=== PATIENT | female | born 1975 | race Caucasian/White ===

== ENCOUNTER 2024-01-12 11:37 | Outpatient (CLI) | payer BC, MEDICARE, SELFPAY ==
[2024-01-12 11:59] LABS: Basophils Absolute Auto 0.1 K/mm3 (0.0-0.1); Basophils Percent Auto 0.7 % (0.2-1.2); Eosinophils Absolute Auto 0.1 K/mm3 (0-0.3); Eosinophils Percent Auto 0.6 % (0-4.4); Hematocrit 49.9 % (37.0-47.0); Hemoglobin 17.3 g/dL (12.0-15.0); Immature Granulocyte Absolute 0.04 K/mm3 (0.00-0.031); Immature Granulocyte Percent A 0.3 % (0-0.5); Lymphocytes Absolute Auto 3.21 K/mm3 (0.9-3.2); Lymphocytes Percent Auto 23.6 % (18.3-44.2); Mean Corpuscular HGB Conc 34.7 g/dl (32-36); Mean Corpuscular Hemoglobin 32.4 pg (26-34); Mean Corpuscular Volume 93.4 fl (80-100); Mean Platelet Volume 10.5 fl (7.4-10.4); Monocytes Absolute Auto 0.7 K/mm3 (0.1-0.6); Monocytes Percent Auto 4.8 % (2.6-8.5); Neutrophils Absolute Auto 9.5 K/mm3 (1.3-6.7); Platelet Count Result 257 k/mm3 (150-375); Red Blood Count 5.34 M/mm3 (4.2-5.4); Red Cell Distribution Width 11.8 % (11.5-14.5); White Blood Count 13.6 K/mm3 (4.5-10.0)
[2024-01-12 12:34] LABS: CRP < 0.5 mg/dL (<1.0)
[2024-01-12 12:49] LABS: Erythrocyte Sedimentation Rate 2 mm/hr (0-20)
[2024-01-12 13:08] LABS: Iron 121 ug/dL (37-170)
[2024-01-12 13:19] LABS: Percent Iron Saturation 38 % (20-50)
== END 2024-01-12 11:38 | disposition home or self-care (01) ==
LOC: ANHLAB 11:41
PROVIDERS: Nurse Practitioner Family; Visit Provider Internal Medicine Hematology & Oncology
DX: D72.829 Elevated white blood cell count, unspecified (principal); D50.9 Iron deficiency anemia, unspecified
CPT/HCPCS: 36415; 82607; 82728; 83540; 83550; 85025; 85652; 86140; 88184

== ENCOUNTER 2024-02-03 02:06 | Day surgery (SDC) | payer BC, MEDICARE, SELFPAY ==
[2024-01-20 12:26] VITALS: BMI 24.9
[2024-02-03 09:32] VITALS: BP 126/81; RESP 16; TEMP 36.1; O2SAT 100
[2024-02-03] MEDS: LACTATED RINGERS 1,000 ML 150 ML IV CONT (09:45)
--- NOTE | 2024-02-03 10:00 | P.PNAN_ITS ---
Anes - Initial Pre Proc Eval Procedure: Operation Date: 02/03/24 11:00 Proposed Procedures p Esophagogastroduodenoscopy & Colonoscopy - Sarbjit De La Cruz MD Date/Time: 02/03/24 10:00 Surgeon: Sarbjit De La Cruz MD Pre Op Diagnosis: nausea w vomiting, diarrhea Patient Data Age: 48 Gender: F Height: 1.68 m Weight: 66.5 kg Last Vital Signs Temp 97 F L 02/03/24 09:32 Resp 16 02/03/24 09:32 BP 126/81 02/03/24 09:32 Pulse Ox 100 02/03/24 09:32 O2 Del Method Room Air 02/03/24 09:32 Allergies Allergy/AdvReac Type Severity Reaction Status Date / Time No Known Allergies Allergy Verified 02/03/24 09:30 Home Medications Medication Instructions Recorded Confirmed Type lorazepam 1 mg tablet 1 mg PO QID 01/20/24 01/20/24 History Patient hx anesthesia problems: none Family hx anesthesia problems: none Results Review: All pre-operative results and documents have been reviewed as part of the pre- operative evaluation. [facility] Social History Social History Smoking packs per day: 1 Smoking cigarettes per day: 20.0 Years smoked: 20 Smoking pack-years: 20.00 Smoking status: Current every day smoker Tobacco type: cigarettes Alcohol intake: never Substance use type: does not use Living arrangements: with family Spiritual care concerns: No Anes - Eval Final PreProcedure Day of Procedure 02/03/24 10:00 Patient weight: normal Heart: regular rate and rhythm Lungs: clear to auscultation Airway: Mallampati scale class II Neurological: alert and oriented Last oral intake: >/= 8 hours ASA classification: II Emergent: no Anesthetic plan: proceed Anesthesia type and monitoring: general GIVS and standard monitoring Results Review: All pre-operative results and documents have been reviewed as part of the pre- operative evaluation. Informed Consent: The patient's anesthetic plan and its attendant risks and benefits were discussed with the patient/family/POA. Questions were solicited and answers provided to the satisfaction of the patient/family/POA.
--- NOTE | 2024-02-03 10:43 | PM.HPGS ---
History of Present Illness History of Present Illness Consent: Risks, benefits, and alternatives have been discussed and questions answered. Patient agrees to proceed with procedure. Chief complaint: nausea w vomiting, diarrhea Narrative: Lory Bridges is a 48 year old female here for first egd and colonoscopy, h/o n/v, abdominal discomfort with loose stools, worse since COVID. Review of Systems Review of Systems: All systems reviewed & are unremarkable except as noted in HPI and below PMFSH Past Medical History Medical History (Updated 02/03/24 @ 10:45 by Sarbjit De La Cruz MD) Colon cancer screening Nausea & vomiting Social History Social History Smoking packs per day: 1 Smoking cigarettes per day: 20.0 Years smoked: 20 Smoking pack-years: 20.00 Smoking status: Current every day smoker Tobacco type: cigarettes Alcohol intake: never Substance use type: does not use Living arrangements: with family Spiritual care concerns: No Meds Home Medications and Allergies Home Medications Medication Instructions Recorded Confirmed Type lorazepam 1 mg tablet 1 mg PO QID 01/20/24 01/20/24 History Allergies Allergy/AdvReac Type Severity Reaction Status Date / Time No Known Allergies Allergy Verified 02/03/24 09:30 Vital Signs Vital Signs - 24 hr 02/03/24 09:32 Temperature 97 F L Respiratory Rate 16 Blood Pressure 126/81 Pulse Oximetry 100 Oxygen Delivery Room Air Exam Const: General: comfortable and no acute distress HENMT: Face/Nose/Sinus: Normal nares present Eyes: General: appearance normal, both eyes and all related structures Neck: Neck: no JVD Resp: Auscultation: clear to auscultation bilaterally Cardio: Rate: regular rate Rhythm: regular rhythm GI: Inspection: non-distended GI Palp: Yes Soft to palpation Skin: General skin exam: normal color Neuro: General: gait normal Speech: normal speech Extrem: General: normal to inspection Psych: Mental Status: mental status grossly normal Assessment and Plan Assessment and plan (1) Nausea & vomiting: Code(s): R11.2 - Nausea with vomiting, unspecified Status: Acute Assessment and Plan: egd with bx (2) Colon cancer screening: Code(s): Z12.11 - Encounter for screening for malignant neoplasm of colon Status: Acute Assessment and Plan: colonoscopy
--- NOTE | 2024-02-03 10:55 | SUR.OPER ---
EGD [id number]. Colon start time 1058.
[2024-02-03 11:09] VITALS: BP 117/59; PULSE 87; RESP 24; O2SAT 96
[2024-02-03 11:19] VITALS: BP 103/62; PULSE 83; RESP 23; O2SAT 97
[2024-02-03 11:29] VITALS: BP 116/67; PULSE 70; RESP 20; O2SAT 100
== END 2024-02-03 11:48 | disposition home or self-care (01) ==
PROVIDERS: PCP Nurse Practitioner Family; Referring Provider Internal Medicine Hematology & Oncology; Visit Provider Internal Medicine Gastroenterology
PROC: 0DJ08ZZ Inspection of Upper Intestinal Tract, Via Natural or Artificial Opening Endoscopic (ICD-10-PCS; CPT 43235; principal; 2024-02-03 11:00)
DX: Z12.11 Encounter for screening for malignant neoplasm of colon (principal); K64.8 Other hemorrhoids; K29.80 Duodenitis without bleeding; F17.210 Nicotine dependence, cigarettes, uncomplicated
CPT/HCPCS: 45378; 43239; 88305; J2704; J7120

== ENCOUNTER 2024-02-17 13:12 | Outpatient (CLI) | payer BC, MEDICARE, SELFPAY ==
[2024-02-17 13:23] LABS: Basophils Absolute Auto 0.1 K/mm3 (0.0-0.1); Basophils Percent Auto 0.5 % (0.2-1.2); Eosinophils Absolute Auto 0.2 K/mm3 (0-0.3); Eosinophils Percent Auto 1.2 % (0-4.4); Hematocrit 46.7 % (37.0-47.0); Hemoglobin 16.5 g/dL (12.0-15.0); Immature Granulocyte Absolute 0.07 K/mm3 (0.00-0.031); Immature Granulocyte Percent A 0.5 % (0-0.5); Lymphocytes Absolute Auto 3.78 K/mm3 (0.9-3.2); Lymphocytes Percent Auto 24.4 % (18.3-44.2); Mean Corpuscular HGB Conc 35.3 g/dl (32-36); Mean Corpuscular Hemoglobin 32.2 pg (26-34); Mean Corpuscular Volume 91.2 fl (80-100); Mean Platelet Volume 10.1 fl (7.4-10.4); Monocytes Absolute Auto 0.7 K/mm3 (0.1-0.6); Monocytes Percent Auto 4.5 % (2.6-8.5); Neutrophils Absolute Auto 10.7 K/mm3 (1.3-6.7); Neutrophils Percent Auto 68.9 % (45.5-73.1); Platelet Count Result 279 k/mm3 (150-375); Red Blood Count 5.12 M/mm3 (4.2-5.4); Red Cell Distribution Width 11.5 % (11.5-14.5); White Blood Count 15.5 K/mm3 (4.5-10.0)
[2024-02-17 15:52] LABS: Alanine Aminotransferase 20 U/L (6-35); Albumin Level 4.8 g/dL (3.5-5.1); Alkaline Phosphatase 73 U/L (38-126); Anion Gap 10 mmol/L (4-12); Aspartate Amino Transferase 23 U/L (14-36); Bilirubin,Total 0.4 mg/dL (0.2-1.3); Blood Urea Nitrogen 13 mg/dL (7-17); Calcium 9.9 mg/dL (8.4-10.2); Carbon Dioxide 26 mmol/L (22-30); Chloride 105 mmol/L (98-107); Estimated Glomerular Filt Rate > 60; Glucose 93 mg/dL (65-110); Potassium 4.1 mmol/L (3.4-5.0); Sodium 141 mmol/L (137-145)
[2024-02-21 10:58] LABS: BCR/abl P190 NOT DETECTED; BCR/abl P210 NOT DETECTED; BCR/abl Source PERIPHERAL
== END 2024-02-17 13:13 | disposition home or self-care (01) ==
LOC: ANHLAB 13:16
PROVIDERS: PCP Nurse Practitioner Family; Visit Provider Internal Medicine Hematology & Oncology
DX: D72.829 Elevated white blood cell count, unspecified (principal)
CPT/HCPCS: 36415; 80053; 85025

== ENCOUNTER 2024-05-18 13:42 | Outpatient (CLI) | payer BC, MEDICARE, SELFPAY ==
--- NOTE | ~2024-05-18 | MM_ITS ---
EXAMINATION: MM screening delfino BI w hilario HISTORY: Baseline TECHNIQUE: Craniocaudal and mediolateral oblique 3-D tomosynthesis images were obtained and synthetic 2-D images were generated. CAD analysis was submitted and interpreted. COMPARISON: None BREAST PARENCHYMAL COMPOSITION: The breasts are heterogeneously dense, which may obscure small masses . FINDINGS: 4-5 well-circumscribed asymmetries scattered throughout the right breast ranging between 2 and 7 cm from the nipple for which whole right breast ultrasound is recommended. Otherwise unremarkable parenchymal pattern without suspicious microcalcifications or architectural di stortion. IMPRESSION: 4-5 well-circumscribed asymmetries within the right breast ranging between 2 and 7 cm from the nipple for which whole right breast ultrasound is recommended. BI-RADS Category 0: Incomplete, additional imaging is needed Reviewed, dictated and finalized at location A. ER HAND IMPRESSION: 4-5 well-circumscribed asymmetries within the right breast ranging between 2 an d 7 cm from the nipple for which whole right breast ultrasound is recommended. BI-RADS Category 0: Incomplete, additional imaging is needed
== END 2024-05-18 13:43 | disposition home or self-care (01) ==
PROVIDERS: PCP Nurse Practitioner Family; Visit Provider Internal Medicine Hematology & Oncology
DX: Z12.31 Encounter for screening mammogram for malignant neoplasm of breast (principal); R92.8 Other abnormal and inconclusive findings on diagnostic imaging of breast
CPT/HCPCS: 77063; 77067

== ENCOUNTER 2024-06-05 12:46 | Outpatient (CLI) | payer BC, MEDICARE, SELFPAY ==
--- NOTE | ~2024-06-05 | MMUS_ITS ---
EXAMINATION: MM diagnostic delfino RT w hilario, US breast RT complete HISTORY: Right breast asymmetries TECHNIQUE: Additional 3-D tomosynthesis images of the right breast were performed and synthetic 2-D i mages were generated. CAD analysis was submitted and interpreted. High resolution complete right sarita st ultrasound including all four quadrants and the subareolar breast ultrasound was performed. COMPARISON: 05/18/2024 BREAST PARENCHYMAL COMPOSITION:Dense: The breasts are heterogeneously dense, which may obscure small masses. FINDINGS: MAMMOGRAPHIC FINDINGS: Spot compression views confirm several scattered low-density probable masses in the right breast. ULTRASOUND: At the 12:00 position right breast, 5 cm from the nipple, there is a 5 mm mildly irregular cyst with probable septation or lobulation. At the 12:00 position right breast near the nipple, there is an 8 x 5 x 4 mm hypoechoic wider than tall circumscribed mass. No posterior shadowing. At the 1:00 position right breast, 5 cm from nipple, there is initial parallel circumscribed hypoechoic solid mass measur ing 5 mm in maximum diameter. There is a similar-appearing 5 mm lesion at the 3:00 position right zhen ast, 2 cm from the nipple. There is a probable cluster of cysts, or possibly lymph node, at the 9:00 position right breast near the nipple measuring 8 mm in maximum diameter. IMPRESSION: Multiple subcentimeter probable benign lesion seen sonographically in the right breast, as detailed above. 6 month follow-up ultrasound recommended to reassess. BI-RADS category 3, probably benign findings. Reviewed, dictated and finalized at location . 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 6 month follow-up ultrasound recommended to reasse ss. BI-RADS category 3, probably benign findings.
== END 2024-06-05 12:47 | disposition home or self-care (01) ==
LOC: ANHIMG 12:47
PROVIDERS: PCP Nurse Practitioner Family; Visit Provider Internal Medicine Hematology & Oncology
DX: R92.8 Other abnormal and inconclusive findings on diagnostic imaging of breast (principal)
CPT/HCPCS: 76641; 77061; 77065; G0279

== ENCOUNTER 2024-06-22 10:38 | Outpatient (CLI) | payer BC, MEDICARE, SELFPAY ==
--- OUTSIDE RECORDS SUMMARY | 2024-06-22 10:45 | XMS_ITS | Patient Health Summary ---
Author Organization [facility] [employer] Address [address] [place] [address] Care Team Providers Care Director Of Consumer Affairs Name Role Phone Sharita De La Paz MD Primary Care Provider [phone] Note from [facility],non-owned Affiliates and Associated Physician Practices is amultiple site organization consisting of ambulatory clinics and hospital sitesin [place], [place], [place] and [place]. This disclosure is being madepursuant to the Care Everywhere program and may not contain all information available regarding this patient. Last updated 18.[facility] Allergies No known active allergies Medications * Be aware that medications may not be up to date on this document. Alwaysverify current medications with the patient. * clonazePAM (KLONOPIN) 0.5 MG tablet(Started 03/22/2018) Take 0.5 mg by mouth 2 times daily 2 refills left * desvenlafaxine succinate ER 24hr (PRISTIQ) 100 MG tablet Take 100 mg by mouth once daily * Galcanezumab-gnlm (EMGALITY) 120 MG/ML SOSY * hydroxychloroquine (PLAQUENIL) 200 MG tablet Take 200 mg by mouth 2 times daily * cyanocobalamin (VITAMIN B-12) 1000 MCG tablet Take 1,000 mcg by mouth once daily * meclizine (ANTIVERT) 25 MG tablet(Started 02/11/2021) Take 1 (one) tablet by mouth 2 times daily 3 refills by 02/11/2022 * iron polysaccharides (NIFEREX 150) 150 MG capsule(Started 02/12/2021) * rosuvastatin (CRESTOR) 20 MG tablet(Started 02/12/2021) rosuvastatin 20 mg tablet TAKE 1 TABLET BY MOUTH EVERY DAY * topiramate (TOPAMAX) 100 MG tablet Take 100 mg by mouth 2 times daily * gabapentin (NEURONTIN) 300 MG capsule(Started 07/06/2021) Take 1 (one) capsule by mouth 3 times daily 3 refills by 07/06/2022 Active Problems Problem Noted Date Diagnosed Date Polyarthralgia 09/21/2017 Abnormal MRI, musculoskeletal 09/21/2017 Pain in joint 03/06/2015 Low back pain 07/31/2014 Major depressive disorder, single episode 2014 Immunizations * FLU VACCINE QUAD IIV4 SPLIT 0.25 ML IM(Given 04/26/2019, 03/04/2016) * INFLUENZA VACCINE(Given 02/20/2018) Social History Tobacco Use Types Packs/Day Years Used Date Smoking Tobacco: Every Day Cigarettes Smokeless Tobacco: Never Alcohol Use Standard Drinks/Week Comments No 0 (1 standard drink = 0.6 oz pur e alcohol) PHQ-2 Answer Date Recorded PHQ2 TOTAL SCORE 0 11/03/2020 Sex and Gender Information Value Date Recorded Sex Assigned at Not on file Gender Identity Not on file Sexual Orientation Not on file Last Filed Vital Signs Vital Sign Reading Time Taken Comments Blood Pressure 121/74 07/06/2021 10:40 AM DIRECTOR MACHINE Pulse 81 07/06/2021 10:40 AM DIRECTOR MACHINE Temperature 36.4 ??C (97.6 ??F) 07/06/2021 10:[address] Respiratory Rate 18 10/27/2016 9:40 AM CDT Oxygen Saturation 99% 02/11/2021 8:31 AM CDT Inhaled Oxygen Concentration - - Weight 78.9 kg (174 lb) 07/06/2021 10:40 AM DIRECTOR MACHINE Height 167.6 cm (5' 6 ) 07/06/2021 10:40 AM DIRECTOR MACHINE Body Mass Index 28.08 07/06/2021 10:40 AM DIRECTOR MACHINE Procedures * HOMOCYSTEINE BLOOD QUANTITATIVE(Performed 02/11/2021) Performed for Memory changes * THYROID AB PANEL (TPO AB+THYROGLOB AB)(Performed 02/11/2021) Performed for Memory changes * FOLATE(Performed 02/11/2021) Performed for Memory changes * VITAMIN B12(Performed 02/11/2021) Performed for Memory changes * TSH REFLEX FREE T4(Performed 02/11/2021) Performed for Memory changes * SYPHILIS ANTIBODY CASCADING REFLEX(Performed 02/11/2021) Performed for Memory changes * URINALYSIS W/MICROSCOPIC REFLEX TO CULTURE(Performed 11/12/2020) Performed for Polyarthralgia * ERYTHROCYTE SEDIMENTATION RATE(Performed 11/12/2020) Performed for Polyarthralgia * C-REACTIVE PROTEIN(Performed 11/12/2020) Performed for Polyarthralgia * ALDOLASE(Performed 11/12/2020) Performed for Polyarthralgia * COMPREHENSIVE METABOLIC PANEL(Performed 11/12/2020) Performed for Polyarthralgia * CK BLOOD(Performed 11/12/2020) Performed for Polyarthralgia * CBC W AUTO DIFFERENTIAL(Performed 11/12/2020) Performed for Polyarthralgia * RHEUMATOID ARTHRITIS PANEL(Performed 11/12/2020) Performed for Polyarthralgia * NATACHA PANEL COMPREHENSIVE(Performed 11/12/2020) Performed for Polyarthralgia * CULTURE URINE REFLEXED I(Performed 11/12/2020) * EARLY SJOGREN'S SYNDROME PROFILE(Performed 11/22/2019) * URINALYSIS W/MICROSCOPIC REFLEX TO CULTURE(Performed 11/22/2019) Performed for Polyarthralgia, Long-term use of immunosuppressant medication * ERYTHROCYTE SEDIMENTATION RATE(Performed 11/22/2019) Performed for Polyarthralgia, Long-term use of immunosuppressant medication * C-REACTIVE PROTEIN(Performed 11/22/2019) Performed for Polyarthralgia, Long-term use of immunosuppressant medication * COMPREHENSIVE METABOLIC PANEL(Performed 11/22/2019) Performed for Polyarthralgia, Long-term use of immunosuppressant medication * CBC W AUTO DIFFERENTIAL(Performed 11/22/2019) Performed for Polyarthralgia, Long-term use of immunosuppressant medication * CULTURE URINE(Performed 11/22/2019) * CULTURE URINE REFLEXED(Performed 11/22/2019) * VITAMIN D 25-HYDROXY(Performed 01/23/2019) Performed for Polyarthralgia * URINALYSIS W/MICROSCOPIC REFLEX TO CULTURE(Performed 01/23/2019) Performed for Polyarthralgia * TSH(Performed 01/23/2019) Performed for Polyarthralgia * THYROID PEROXIDASE ANTIBODY(Performed 01/23/2019) Performed for Polyarthralgia * T4 FREE(Performed 01/23/2019) Performed for Polyarthralgia * ERYTHROCYTE SEDIMENTATION RATE(Performed 01/23/2019) Performed for Polyarthralgia * C-REACTIVE PROTEIN(Performed 01/23/2019) Performed for Polyarthralgia * CK BLOOD(Performed 01/23/2019) Performed for Polyarthralgia * COMPREHENSIVE METABOLIC PANEL(Performed 01/23/2019) Performed for Polyarthralgia * CBC W AUTO DIFFERENTIAL(Performed 01/23/2019) Performed for Polyarthralgia * ALDOLASE(Performed 01/23/2019) Performed for Polyarthralgia * RHEUMATOID ARTHRITIS PANEL(Performed 01/23/2019) Performed for Polyarthralgia * NATACHA PANEL COMPREHENSIVE(Performed 01/23/2019) Performed for Polyarthralgia * CULTURE URINE REFLEXED I(Performed 01/23/2019) * XR HAND RIGHT 2VW(Performed 01/15/2019) Performed for Polyarthralgia * XR HAND LEFT 2VW(Performed 01/15/2019) Performed for Polyarthralgia * URINALYSIS W/MICROSCOPIC REFLEX TO CULTURE(Performed 01/09/2019) Performed for Inflammatory arthritis, High risk medications (not anticoagulants) long-term use * ERYTHROCYTE SEDIMENTATION RATE(Performed 01/09/2019) Performed for Inflammatory arthritis, High risk medications (not anticoagulants) long-term use * CBC W AUTO DIFFERENTIAL(Performed 01/09/2019) Performed for Inflammatory arthritis, High risk medications (not anticoagulants) long-term use * COMPREHENSIVE METABOLIC PANEL(Performed 01/09/2019) Performed for Inflammatory arthritis, High risk medications (not anticoagulants) long-term use * C-REACTIVE PROTEIN(Performed 01/09/2019) Performed for Inflammatory arthritis, High risk medications (not anticoagulants) long-term use * CULTURE URINE REFLEXED I(Performed 01/09/2019) * URINALYSIS NO MICROSCOPIC NO CULTURE(Performed 03/03/2018) Performed for Low back pain, unspecified back pain laterality, unspecified chronicity, with sciatica presence unspecified, Polyarthralgia, Abnormal MRI, musculoskeletal, High risk medications (not anticoagulants) long-term use * ERYTHROCYTE SEDIMENTATION RATE(Performed 03/03/2018) Performed for Low back pain, unspecified back pain laterality, unspecified chronicity, with sciatica presence unspecified, Polyarthralgia, Abnormal MRI, musculoskeletal, High risk medications (not anticoagulants) long-term use * C-REACTIVE PROTEIN(Performed 03/03/2018) Performed for Low back pain, unspecified back pain laterality, unspecified chronicity, with sciatica presence unspecified, Polyarthralgia, Abnormal MRI, musculoskeletal, High risk medications (not anticoagulants) long-term use * COMPREHENSIVE METABOLIC PANEL(Performed 03/03/2018) Performed for Low back pain, unspecified back pain laterality, unspecified chronicity, with sciatica presence unspecified, Polyarthralgia, Abnormal MRI, musculoskeletal, High risk medications (not anticoagulants) long-term use * CBC W/O DIFFERENTIAL(Performed 03/03/2018) Performed for Low back pain, unspecified back pain laterality, unspecified chronicity, with sciatica presence unspecified, Polyarthralgia, Abnormal MRI, musculoskeletal, High risk medications (not anticoagulants) long-term use * URINALYSIS W/MICROSCOPIC REFLEX TO CULTURE(Performed 11/21/2017) Performed for Polyarthralgia, High risk medication use, Long-term use of immunosuppressant medication * ERYTHROCYTE SEDIMENTATION RATE(Performed 11/21/2017) Performed for Polyarthralgia, High risk medication use, Long-term use of immunosuppressant medication * C-REACTIVE PROTEIN(Performed 11/21/2017) Performed for Polyarthralgia, High risk medication use, Long-term use of immunosuppressant medication * COMPREHENSIVE METABOLIC PANEL(Performed 11/21/2017) Performed for Polyarthralgia, High risk medication use, Long-term use of immunosuppressant medication * CBC W/O DIFFERENTIAL(Performed 11/21/2017) Performed for Polyarthralgia, High risk medication use, Long-term use of immunosuppressant medication * CULTURE URINE REFLEXED I(Performed 11/21/2017) * URINALYSIS W/MICROSCOPIC REFLEX TO CULTURE(Performed 09/15/2017) * VITAMIN D 25-HYDROXY(Performed 09/15/2017) * CYCLIC CITRULLINATED PEPTIDE(CCP) AB IGG(Performed 09/15/2017) * C-REACTIVE PROTEIN(Performed 09/15/2017) * RHEUMATOID FACTOR BLOOD QUANTITATIVE(Performed 09/15/2017) * NATACHA BLOOD SCREEN W/REFLEX TITER(Performed 09/15/2017) * CBC W AUTO DIFFERENTIAL(Performed 09/15/2017) * ERYTHROCYTE SEDIMENTATION RATE(Performed 09/15/2017) * PROTEIN 14-3-3 BLOOD(Performed 09/15/2017) * COMPREHENSIVE METABOLIC PANEL(Performed 09/15/2017) * CULTURE URINE REFLEXED I(Performed 09/15/2017) * SACCHAROMYCES CEREVISIAE (ASCA) IGA AB(Performed 04/26/2016) * TISSUE TRANSGLUTAMINASE AB IGA(Performed 04/26/2016) * COMPREHENSIVE METABOLIC PANEL(Performed 04/26/2016) * VITAMIN D 25-HYDROXY(Performed 04/26/2016) * TSH HI LOW REFLEX FREE T4(Performed 04/26/2016) * CBC W AUTO DIFFERENTIAL(Performed 04/26/2016) * ERYTHROCYTE SEDIMENTATION RATE(Performed 04/26/2016) * URINALYSIS W/MICROSCOPIC REFLEX TO CULTURE(Performed 04/26/2016) * C-REACTIVE PROTEIN(Performed 04/26/2016) * RHEUMATOID FACTOR BLOOD QUANTITATIVE(Performed 04/26/2016) * SS-A/SS-B (SJOGREN'S) ANTIBODY PANEL(Performed 04/26/2016) * NATACHA BLOOD SCREEN W/REFLEX TITER(Performed 04/26/2016) * CYCLIC CITRULLINATED PEPTIDE(CCP) AB IGG(Performed 04/26/2016) * URINALYSIS W/MICROSCOPIC REFLEX TO CULTURE(Performed 01/10/2015) * ERYTHROCYTE SEDIMENTATION RATE(Performed 01/10/2015) * C-REACTIVE PROTEIN(Performed 01/10/2015) * COMPREHENSIVE METABOLIC PANEL(Performed 01/10/2015) * CBC W AUTO DIFFERENTIAL(Performed 01/10/2015) * CULTURE URINE REFLEXED(Performed 01/10/2015) * PROTEIN 14-3-3 BLOOD(Performed 06/25/2014) * TISSUE TRANSGLUTAMINASE AB IGA(Performed 06/25/2014) * RHEUMATOID FACTOR BLOOD QUANTITATIVE(Performed 06/25/2014) * SVP BUSINESS DEVELOPMENT ANTIBODY(Performed 06/25/2014) * CYCLIC CITRULLINATED PEPTIDE(CCP) AB IGG(Performed 06/25/2014) * HLA TYPING B27(Performed 06/25/2014) * SS-A/SS-B (SJOGREN'S) ANTIBODY PANEL(Performed 06/25/2014) * NATACHA BLOOD SCREEN W/REFLEX TITER(Performed 06/25/2014) * CBC W AUTO DIFFERENTIAL(Performed 06/25/2014) * COMPREHENSIVE METABOLIC PANEL(Performed 06/25/2014) * VITAMIN D 25-HYDROXY D2+D3(Performed 06/25/2014) * URINALYSIS W/MICROSCOPIC REFLEX TO CULTURE(Performed 06/25/2014) * TSH HI LOW REFLEX FREE T4(Performed 06/25/2014) * C-REACTIVE PROTEIN(Performed 06/25/2014) * ERYTHROCYTE SEDIMENTATION RATE(Performed 06/25/2014) * HEPATITIS C ANTIBODY(Performed 06/25/2014) * CULTURE URINE REFLEXED(Performed 06/25/2014) Results * SYPHILIS ANTIBODY CASCADING REFLEX (02/11/2021 10:41 AM CDT) Treponema pallidum Antibody Non-react felipe Non-react felipe 02/11/2021 12:47 PM CDT [facility] Comment: No Laboratory evidence of syphilis infection. ?? Note: ??Circulating antibodies may be low or undetectable in early infection. ??If recent exposure is suspected, re-draw sample in 2-4 weeks and repeat testing. Blood BLOOD SPECIMEN / Unknown Lab Venipuncture / Unknown 02/11/2021 10:41 AM CDT 02/11/2021 11:31 AM CDT Sri Antonio [facility] LAB - SEROLOGY O RDERABLES Performing Organization Address City/[facility]/ZIP Co de Phone Number [address] [address], [facility] [phone] * TSH REFLEX FREE T4 (02/11/2021 10:41 AM CDT) [facility] TSH 1.869 0.350 - 4.940 uIU/mL 02/11/2021 12:35 PM CDT [facility] Blood BLOOD SPECIMEN / Unknown Lab Venipuncture / Unknown 02/11/2021 10:41 AM CDT 02/11/2021 11:38 AM CDT Sri Antonio GENERAL LEDGER [facility] LAB - CHEMISTRY ORDERABLES [address] [address], [place] [phone] * THYROID AB PANEL (TPO AB+THYROGLOB AB) (02/11/2021 10:41 AM CDT) Pathologist [facility] Thyroid Peroxidase TPO Antibody <8 0 - 34 IU/mL 02/12/2021 4:10 PM CDT [facility] ([facility]) Thyroglobulin Antibody <1.0 0.0 - 0.9 IU/mL 02/12/2021 4:10 PM CDT [facility] ([facility]) Comment:Thyroglobulin Antibo dy measured by [facility] [place] [facility] Blood BLOOD SPECIMEN / Unknown Lab Venipuncture / Unknown 02/11/2021 10:41 AM CDT 02/11/2021 11:31 AM CDT Narrative [facility] ([facility]) - 02/12/2021 4:10 PM CDT Performed at: ??01 - [facility] [address] [facility], [place], [place] ??[id number] Member Certification Manager: Brian Esteban PhD, Phone: ??[phone] Sri Antonio [facility] LAB - CHEMISTRY ORDERABLES Performing Organization Address City/[facility] Co de Phone Number [facility]) [address] [place] [address] * HOMOCYSTEINE BLOOD QUANTITATIVE (02/11/2021 10:41 AM CDT) Homocysteine 6.9 4.4 - 16.2 umol/L 02/11/2021 12:18 PM CDT [facility] Blood BLOOD SPECIMEN / Unknown Lab Venipuncture / Unknown 02/11/2021 10:41 AM CDT 02/11/2021 11:35 AM CDT [facility] LAB - CHEMISTRY ORDERABLES [address] [address], [facility] [phone] * FOLATE (02/11/2021 10:41 AM CDT) Folate 8.7 7.0 - 31.4 ng/mL 02/11/2021 12:35 PM CDT [facility] Blood BLOOD SPECIMEN / Unknown Lab Venipuncture / Unknown 02/11/2021 10:41 AM CDT 02/11/2021 11:38 AM CDT Sri Antonio GENERAL LEDGER ACCOUNTANT-[facility] LAB - CHEMISTRY ORDERABLES Performing Organization Address City/[facility]/ZIP Co de Phone Number [address] [address], [place] [phone] * VITAMIN B12 (02/11/2021 10:41 AM CDT) Pathologist [facility] Vitamin B12 716 213 - 816 pg/mL 02/11/2021 12:35 PM CDT [facility] Blood BLOOD SPECIMEN / Unknown Lab Venipuncture / Unknown 02/11/2021 10:41 AM CDT 02/11/2021 11:38 AM CDT Sri Antonio GENERAL LEDGER ACCOUNTANT[facility] LAB - CHEMISTRY ORDERABLES Performing Organization Address [facility] Co de Phone Number [address] [address], [place] [phone] * CULTURE URINE REFLEXED I (11/12/2020 11:06 AM CDT) Only the most recent of5 resultswithin the time period is included. Pathologist [facility] Reflexive Urine Culture See Below [facility] Comment: NO CULTURE INDICATED Test Performed at: [facility] [address] ??[phone] AMADEO GONZALES DO,MPH 11/12/2020 11:0 6 AM CDT 11/12/2020 11:08 AM CDT Jay Patel MD LAB - MICROBIOLOGY O RDERABLES Performing Organization Address City/[facility]/ZIP Co de Phone Number [facility] [address] [place] [address] * NATACHA PANEL COMPREHENSIVE (11/12/2020 11:06 AM CDT) Only the most recent of2 resultswithin the time period is included. Pathologist [facility] NATACHA Screen NEGATIVE NEGATIVE [facility] Comment: NATACHA IFA is a first line screen for detecting the presence of up to approximately 150 autoantibodies in various autoimmune diseases. A negative NATACHA IFA result suggests an NATACHA-associated autoimmune disease is not present at this time, but is not definitive. If there is high clinical suspicion for Sjogren's syndrome, testing for anti-SS-A/Ro antibody should be considered. Anti-Debi-1 antibody should be considered for clinically suspected inflammatory myopathies. AC-0: Negative International Consensus on NATACHA Patterns (https://doi.org/10.1515/czzg-6192-5201) For additional information, please refer to http://education.DanceOn/faq/TXZ051 (This link is being provided for informational/ educational purposes only.) ?? dsDNA Antibody 1 IU/mL [facility] Comment: ? IU/mL ? Interpretation ? < or = 4 ?Negative ? 5-9 ? Indeterminate ? > or = 10 ?? Positive SCL-70 Antibody <1.0 NEG <1.0 NEG AI [facility] SM Antibody <1.0 NEG <1.0 NEG AI [facility] SM/SVP BUSINESS DEVELOPMENT Antibody <1.0 NEG <1.0 NEG AI [facility] Sjogren's Antibodies (SSA) <1.0 NEG <1.0 NEG AI [facility] Sjogren's Antibodies (SSB) <1.0 NEG <1.0 NEG AI [facility] Comment: Test Performed at: [facility] ??[phone] AMADEO GONZALES DO,MPH Blood BLOOD SPECIMEN / Unknown 11/12/2020 11:06 AM CDT 11/12/2020 11:08 AM CDT Jay Patel MD LAB - SEROLOGY ORDER JANIS [facility] [address] [address] * (ABNORMAL) URINALYSIS W/MICROSCOPIC REFLEX TO CULTURE (11/12/2020 11:06 AM CDT) Only the most recent of9 resultswithin the time period is included. Color UA YELLOW YELLOW [facility] Appearance CLEAR CLEAR [facility] Specific [place] UA 1.003 1.001 - 1.035 [facility] pH UA 6.5 5.0 - 8.0 [facility] Glucose UA NEGATIVE NEGATIVE [facility] Bilirubin UA NEGATIVE NEGATIVE [facility] Ketone UA NEGATIVE NEGATIVE [facility] Blood UA TRACE(A) NEGATIVE [facility] Protein UA NEGATIVE NEGATIVE [facility] Nitrite NEGATIVE NEGATIVE [facility] Leukocyte Esterase NEGATIVE NEGATIVE [facility] WBC UA NONE SEEN < OR = 5 /HPF [facility] RBC UA NONE SEEN < OR = 2 /HPF [facility] Epithelial Cell UA NONE SEEN < OR = 5 /HPF [facility] Transitional Epithelial Cells [facility] Renal Epithelial Cells [facility] Bacteria UA NONE SEEN NONE SEEN /HPF [facility] Calcium Oxalate Crystals [facility] Triple Phosphate Crystals [facility] Uric Acid Crystals [facility] Amorphous UA [facility] Crystals UA [facility] Hyaline Casts NONE SEEN NONE SEEN /LPF [facility] Comment: Test Performed at: [facility] [address] [place] [address] ??[phone] AMADEO GONZALES DO,MPH Granular Casts [facility] Casts UA [facility] Yeast [facility] Comments [facility] Note [facility] Comment: Test Performed at: [facility] [address] [place] [address] ??[phone] AMADEO GONZALES DO,MPH Urine URINE SPECIMEN OBTAINED BY CLEAN CATCH PROCEDURE / Unknown 11/12/2020 11:06 AM CDT 11/12/2020 11:08 AM CDT Jay Patel MD LAB - URINALYSIS ORD ERABLES [facility] [address] [place] [address] * (ABNORMAL) C-REACTIVE PROTEIN (11/12/2020 11:06 AM CDT) Only the most recent of10 resultswithin the time period is included. C-Reactive Protein 21.6(H) <8.0 mg/L [facility] Comment: Test Performed at: [facility] ??[phone] AMADEO GONZALES DO,MPH Blood BLOOD SPECIMEN / Unknown 11/12/2020 11:06 AM CDT 11/12/2020 11:08 AM CDT Jay Patel MD LAB - CHEMISTRY RACHEAL TORRES Performing Organization Address [facility] de Phone Number [facility] [address] [place] [address] * ALDOLASE (11/12/2020 11:06 AM CDT) Only the most recent of2 resultswithin the time period is included. Pathologist [facility] Aldolase 5.9 < OR = 8.1 U/L [facility] Comment: REPORT COMMENT: FASTING:YES Test Performed at: [facility] [id number] [facility] [place], [place] ??[phone] AMADEO GONZALES DO,MPH Blood BLOOD SPECIMEN / Unknown 11/12/2020 11:06 AM CDT 11/12/2020 11:08 AM CDT Jay Patel MD LAB - CHEMISTRY RACHEAL TORRES Performing Organization Address [facility] de Phone Number [facility] [phone] [place] [address] * RHEUMATOID ARTHRITIS PANEL (11/12/2020 11:06 AM CDT) Only the most recent of2 resultswithin the time period is included. Pathologist [facility] Rheumatoid Factor <14 <14 IU/mL [facility] Cyclic Citrullinated Peptide Antibody IgG <16 UNITS [facility] Comment: Reference Range Negative: ?<20 Weak Positive: ? 20-39 Moderate Positive: ?? 40-59 Strong Positive: ? >59 Interpretation [facility] Comment: These serologic results may be found in 10-20% of patients with polyarthritis that is clinically and radiologically indistinguishable from RA. Test Performed at: [facility] [id number] [facility] [place] [place] ??[phone] AMADEO GONZALES DO,MPH Blood BLOOD SPECIMEN / Unknown 11/12/2020 11:06 AM CDT 11/12/2020 11:08 AM CDT Jay Patel MD LAB - SEROLOGY SUAD JANIS Performing Organization Address [facility] de Phone Number [address] [address] * ERYTHROCYTE SEDIMENTATION RATE (11/12/2020 11:06 AM CDT) Only the most recent of10 resultswithin the time period is included. [facility] Erythrocyte Sedimentation Rate Westergren 14 < OR = 20 mm/h [facility] Comment: Test Performed at: [facility] ??[phone] CHRISTIANO RITTER MD Blood BLOOD SPECIMEN / Unknown 11/12/2020 11:06 AM CDT 11/12/2020 11:08 AM CDT Jay Patel MD LAB - HEMATOLOGY ORD ERABLES [address] [address] * CBC WITH DIFFERENTIAL (11/12/2020 11:06 AM CDT) Only the most recent of8 resultswithin the time period is included. [facility] White Blood Cell Count 10.6 3.8 - 10.8 Thousand/u L [facility] RBC 4.71 3.80 - 5.10 Million/uL [facility] Hemoglobin 15.3 11.7 - 15.5 g/dL [facility] Hematocrit 44.0 35.0 - 45.0 % [facility] MCV 93.4 80.0 - 100.0 fL [facility] MCH 32.5 27.0 - 33.0 pg [facility] MCHC 34.8 32.0 - 36.0 g/dL [facility] RDW 12.0 11.0 - 15.0 % [facility] Platelet Count 291 140 - 400 Thousand/u L [facility] MPV 10.1 7.5 - 12.5 fL [facility] Neutrophil Absolute 6381 1500 - 7800 cells/uL [facility] Lymphocytes Absolute 3074 850 - 3900 cells/uL [facility] Absolute Monocytes 700 200 - 950 cells/uL [facility] Eosinophils Absolute 371 15 - 500 cells/uL [facility] Basophils Absolute 74 0 - 200 cells/uL [facility] Granulocytes % 60.2 % [facility] Lymphocytes % 29.0 % [facility] Monocytes % 6.6 % [facility] Eosinophils % 3.5 % [facility] Basophils % 0.7 % [facility] Comment: Test Performed at: [facility] ??[phone] CHRISTIANO RITTER MD Blood BLOOD SPECIMEN / Unknown 11/12/2020 11:06 AM CDT 11/12/2020 11:08 AM CDT Jay Patel MD LAB - HEMATOLOGY SHEYLA TEIXEIRA [facility] [address] [place] [address] * (ABNORMAL) COMPREHENSIVE METABOLIC PANEL (11/12/2020 11:06 AM CDT) Only the most recent of10 resultswithin the time period is included. Pathologist [facility] Glucose 78 65 - 99 mg/dL [facility] Comment: ? Fasting reference interval BUN 14 7 - 25 mg/dL [facility] Creatinine 0.72 0.50 - 1.10 mg/dL [facility] eGFR by MDRD 100 > OR = 60 mL/min/1. 73m2 [facility] eGFR by MDRD 116 > OR = 60 mL/min/1. 73m2 [facility] BUN/Creatinine Ratio NOT APPLICABLE 6 - 22 (calc) [facility] Sodium 138 135 - 146 mmol/L [facility] Potassium 4.6 3.5 - 5.3 mmol/L [facility] Chloride 105 98 - 110 mmol/L [facility] CO2 27 20 - 32 mmol/L [facility] Calcium 10.1 8.6 - 10.2 mg/dL [facility] Protein Total 6.8 6.1 - 8.1 g/dL [facility] Albumin 4.3 3.6 - 5.1 g/dL [facility] Globulin Total 2.5 1.9 - 3.7 g/dL (calc) [facility] Albumin/Globuli n Ratio 1.7 1.0 - 2.5 (calc) [facility] Bilirubin Total 0.3 0.2 - 1.2 mg/dL [facility] Alkaline Phosphatase 79 31 - 125 U/L [facility] AST 22 10 - 35 U/L [facility] ALT 41(H) 6 - 29 U/L [facility] Comment: Test Performed at: [facility] [address] [place] [address] ??[phone] AMADEO GONZALES DO,MPH Blood BLOOD SPECIMEN / Unknown 11/12/2020 11:06 AM CDT 11/12/2020 11:08 AM CDT Jay Patel MD LAB - CHEMISTRY RACHEAL TORRES Performing Organization Address [facility] Co de Phone Number [facility] [address] [place] [address] * CK BLOOD (11/12/2020 11:06 AM CDT) Only the most recent of2 resultswithin the time period is included. CK 36 29 - 143 U/L [facility] Comment: Test Performed at: [facility] [address] [facility] [place] ??[address] AMADEO GONZALES DO,MPH Blood BLOOD SPECIMEN / Unknown 11/12/2020 11:06 AM CDT 11/12/2020 11:08 AM CDT Jay Patel MD LAB - CHEMISTRY RACHEAL TORRES Performing Organization Address [facility] Co de Phone Number [facility] [address] [place] [address] * EARLY SJOGREN'S SYNDROME PROFILE (11/22/2019 1:56 PM CDT) Pathologist [facility] Salivary Protein 1 Antibody IgG 5.2 EU/ml [facility] Comment: Reference Range: Negative: <20 EU/ml Borderline: 20-25 EU/ml Positive: >25 EU/ml Salivary Protein 1 Antibody IgA 9.5 EU/ml [facility] Comment: Reference Range: Negative: <20 EU/ml Borderline: 20-25 EU/ml Positive: >25 EU/ml Salivary Protein 1 Antibody IgM 11.8 EU/ml [facility] Comment: Reference Range: Negative: <20 EU/ml Borderline: 20-25 EU/ml Positive: >25 EU/ml Carbonic Anhydrase Antibody IgG 5.1 EU/ml [facility] Comment: Reference Range: Negative: <20 EU/ml Borderline: 20-25 EU/ml Positive: >25 EU/ml Carbonic Anhydrase Antibody IgA 5.1 EU/ml [facility] Comment: Reference Range: Negative: <20 EU/ml Borderline: 20-25 EU/ml Positive: >25 EU/ml Carbonic Anhydrase Antibody IgM 17.9 EU/ml [facility] Comment: Reference Range: Negative: <20 EU/ml Borderline: 20-25 EU/ml Positive: >25 EU/ml Parotid Specific Protein Antibody IgG 7.4 EU/ml [facility] Comment: Reference Range: Negative: <20 EU/ml Borderline: 20-25 EU/ml Positive: >25 EU/ml Parotid Specific Protein Antibody IgA 16.8 EU/ml [facility] Comment: Reference Range: Negative: <20 EU/ml Borderline: 20-25 EU/ml Positive: >25 EU/ml Parotid Specific Protein Antibody IgM 6.9 EU/ml [facility] Comment: Reference Range: Negative: <20 EU/ml Borderline: 20-25 EU/ml Positive: >25 EU/ml Comments See Below [facility] Comment: The novel antibodies salivary gland protein 1 (SP-1), carbonic anhydrase 6 (CA ) and parotid secretory protein (PSP) have shown to be present in animal models for Sjogren's syndrome (SS) and patients with the disease. The antibodies SP-1, CA and PSP occurred earlier in the course of the disease than antibodies to Ro or La. These antibodies were found in 45% of patients meeting the criteria for SS who lacked antibodies to Ro or La. Furthermore, in patients with idiopathic xerostomia and xerophthalmia for less than 2 years, 76% had antibodies to SP-1 and/or CA while only 31% had antibodies to Ro or La. Antibodies to SP-1, CA and PSP may be useful markers for identifying patients with SS at early stages of the disease or those that lack antibodies to either Ro or La. The presence of the antibodies to SP-1, CA and PSP should be correlated with clinical (dry mouth, dry eyes), serological (Ro, La, NATACHA, RF) and histological (positive lymphocytic focus scores) findings in establishing a definitive diagnosis for SS. Faviola Nunez et al. (2010). A role of lymphotxin in primary sjogren's syndrome. J Immunol; 185: 6725-1372. Faviola Nunez et al. (2012). Novel autoantibodies in Sjogren's syndrome. Clinical Immunology; 145, 251-255. *This test has been developed and performance parameters have been validated by [employer] This test ?? has not been approved by the U.S. Food and Drug Administration (FDA); however, US FDA approval is not required for clinical use. It is not intended that clinical diagnosis and patient management decisions be made using these results alone. This test has been validated using serum samples. The media relations associate has not determined the efficacy of this test when performed on CSF, plasma, joint or pleural fluid specimens. The performance characteristics of this test were determined by [employer] Test Performed at: [facility] [address] [place], [place] ??[address] HARMONY JARA,PHD 11/22/2019 1:56 PM CDT 11/22/2019 1:57 PM CDT Jay Patel MD LAB - SEROLOGY ORDER JANIS Performing Organization Address [facility] de Phone Number [facility] [address] [place] [address] * CULTURE URINE REFLEXED (11/22/2019 1:56 PM CDT) Only the most recent of3 resultswithin the time period is included. Reflexive Urine Culture CULTURE INDICATED - RESULTS TO FOLLOW [facility] Comment: Test Performed at: [facility] [address] [place], [place] ??[address] AMADEO GONZALES DO,MPH 11/22/2019 1:56 PM CDT 11/22/2019 1:57 PM CDT Jay Patel MD LAB - MICROBIOLOGY O RDERABLES Performing Organization Address [facility] de Phone Number [facility] [address] [place] [address] * (ABNORMAL) CULTURE URINE (11/22/2019 1:56 PM CDT) Culture (A) [facility] Comment: ??CULTURE, URINE, ROUTINE ?Micro Number: ?[id number] ??Test Status: ? Final ??Specimen Source: ?? URINE ??Specimen Quality: ??Adequate ??Result: ?10,000-50,000 CFU/mL of Group B Streptococcus isolated ? Beta-hemolytic Streptococci are predictably ? susceptible to penicillin and other beta-lactams. ? Susceptibility testing not routinely performed. ??Comment: ? Erythromycin and clindamycin are not recommended ? for treatment of urinary tract infections, ? but clindamycin may be useful for treatment of ? rectovaginal colonization or infection. REPORT COMMENT: FASTING:NO Test Performed at: [facility] [address] ??[phone] AMADEO GONZALES DO,MPH 11/22/2019 1:56 PM CDT 11/22/2019 1:57 PM CDT Jay Patel MD LAB - MICROBIOLOGY O JANIA Performing Organization Address [facility] de Phone Number [facility] [address] [place] [address] * THYROID PEROXIDASE ANTIBODY (01/23/2019 9:45 AM CDT) Pathologist [facility] Thyroid Peroxidase TPO Antibody 1 <9 IU/mL [facility] Comment: Test Performed at: [facility] [address] ??[phone] AMADEO GONZALES DO,MPH Blood BLOOD SPECIMEN / Unknown 01/23/2019 9:45 AM CDT 01/23/2019 9:47 AM CDT Jay Patel MD LAB - CHEMISTRY RACHEAL TORRES Performing Organization Address [facility] de Phone Number [facility] [id number] [place] [address] * VITAMIN D 25-HYDROXY (01/23/2019 9:45 AM CDT) Only the most recent of3 resultswithin the time period is included. Vitamin D, 25 Hydroxy 40 30 - 100 ng/mL [facility] Comment: Vitamin D Status ? 25-OH Vitamin D: Deficiency: ?<20 ng/mL Insufficiency: ? 20 - 29 ng/mL Optimal: ? > or = 30 ng/mL For 25-OH Vitamin D testing on patients on D2-supplementation and patients for whom quantitation of D2 and D3 fractions is required, the QuestAssureD(TM) 25-OH VIT D, (D2,D3), LC/MS/MS is recommended: order code 45263 (patients >2yrs). For more information on this test, go to: http://education.Wave[employer]/faq/UMG233 (This link is being provided for informational/educational purposes only.) Test Performed at: [facility] [address] [place], [place] ??[address] AMADEO GONZALES DO,MPH Blood BLOOD SPECIMEN / Unknown 01/23/2019 9:45 AM CDT 01/23/2019 9:47 AM CDT Jay Patel MD LAB - CHEMISTRY RACHEAL TORRES [facility] [address] [place] [address] * TSH (01/23/2019 9:45 AM CDT) [facility] TSH 1.72 mIU/L ANNIE Comment: ?Reference Range ?> or = 20 Years ??0.40-4.50 ? Ranges ?First trimester ?0.26-2.66 ?Second trimester ?? 0.55-2.73 ?Third trimester ?0.43-2.91 Test Performed at: [facility] [address] [place], [place] ??[address] AMADEO GONZALES DO,MPH Blood BLOOD SPECIMEN / Unknown 01/23/2019 9:45 AM CDT 01/23/2019 9:47 AM CDT Jay Patel MD LAB - CHEMISTRY RACHEAL DAINADANIELLE Performing Organization Address City/[facility]/ZIP Co de Phone Number [facility] [address] [place] [address] * T4 FREE (01/23/2019 9:45 AM CDT) T4 Free 1.2 0.8 - 1.8 ng/dL [facility] Comment: Test Performed at: [facility] [address] ??[address] AMADEO GONZALES DO,MPH Blood BLOOD SPECIMEN / Unknown 01/23/2019 9:45 AM CDT 01/23/2019 9:47 AM CDT Jay Patel MD LAB - CHEMISTRY RACHEAL TORRES Performing Organization Address [facility] Co de Phone Number [facility] [address] [place] [address] * XR HAND RIGHT 2VW (01/15/2019 4:15 PM CDT) Anatomical Region Laterality Modality Wrist / Hand Radiographic Susana ging 01/16/2019 7:14 AM CDT Impressions 01/16/2019 7:35 AM CDT IMPRESSION: No significant arthritis. Dictated by Juan Saeed MD (bank president). I, Dr. HAMLET ZAYAS MD have personally reviewed and interpreted this examination/study. This report was electronically signed by HAMLET ZAYAS MD ??on 01/16/2019 7:35 AM . Narrative 01/16/2019 7:35 AM CDT EXAMINATION: 1. Right hand radiograph, 2 views 2. Left hand radiograph, 2 views HISTORY: Arthralgias FINDINGS: No prior study is available for comparison at the time of this dictation. Right hand: The osseous structures are intact and well aligned without acute fracture or dislocation. The joint spaces are preserved. There is a subcentimeter calcification adjacent to the ulnar styloid. Density and texture are normal. No soft tissue swelling is present. Left hand: The osseous structures are intact and well aligned without acute fracture or dislocation. The joint spaces are preserved. Bone density and texture are normal. No soft tissue swelling is present. Procedure Note Hamlet Zayas MD - 01/16/2019 EXAMINATION: 1. Right hand radiograph, 2 views 2. Left hand radiograph, 2 views HISTORY: Arthralgias FINDINGS: No prior study is available for comparison at the time of this dictation. Right hand: The osseous structures are intact and well aligned without acute fracture or dislocation. The joint spaces are preserved. There natali subcentimeter calcification adjacent to the ulnar styloid. Density and texture are normal. No soft tissue swelling is present. Left hand: The osseous structures are intact and well aligned without acute fracture or dislocation. The joint spaces are preserved. Bone density and texture are normal. No soft tissue swelling is present. IMPRESSION: No significant arthritis. Dictated by Juan Saeed MD (bank president). Dr. HAMLET Hunter MD have personally reviewed and interpreted this examination/study. This report was electronically signed by HAMLET ZAYAS MD on01/16/2019 7:35 AM . Jay Patel MD DIAGNOSTIC IMAGING O RDERABLES * XR HAND LEFT 2VW (01/15/2019 4:15 PM CDT) Anatomical Region Laterality Modality Wrist / Hand Radiographic Susana ging 01/16/2019 7:14 AM CDT Impressions 01/16/2019 7:35 AM CDT IMPRESSION: No significant arthritis. Dictated by Juan Saeed MD (bank president). Dr. HAMLET Hunter MD have personally reviewed and interpreted this examination/study. This report was electronically signed by HAMLET ZAYAS MD ??on 01/16/2019 7:35 AM . Narrative 01/16/2019 7:35 AM CDT EXAMINATION: 1. Right hand radiograph, 2 views 2. Left hand radiograph, 2 views HISTORY: Arthralgias FINDINGS: No prior study is available for comparison at the time of this dictation. Right hand: The osseous structures are intact and well aligned without acute fracture or dislocation. The joint spaces are preserved. There is a subcentimeter calcification adjacent to the ulnar styloid. Density and texture are normal. No soft tissue swelling is present. Left hand: The osseous structures are intact and well aligned without acute fracture or dislocation. The joint spaces are preserved. Bone density and texture are normal. No soft tissue swelling is present. Procedure Note Hamlet Zayas MD - 01/16/2019 EXAMINATION: 1. Right hand radiograph, 2 views 2. Left hand radiograph, 2 views HISTORY: Arthralgias FINDINGS: No prior study is available for comparison at the time of this dictation. Right hand: The osseous structures are intact and well aligned without acute fracture or dislocation. The joint spaces are preserved. There natali subcentimeter calcification adjacent to the ulnar styloid. Density and texture are normal. No soft tissue swelling is present. Left hand: The osseous structures are intact and well aligned without acute fracture or dislocation. The joint spaces are preserved. Bone density and texture are normal. No soft tissue swelling is present. IMPRESSION: No significant arthritis. Dictated by Juan Saeed MD (bank president). I, Dr. HAMLET ZAYAS MD have personally reviewed and interpreted this examination/study. This report was electronically signed by HAMLET ZAYAS MD on01/16/2019 7:35 AM . Jay Patel MD DIAGNOSTIC IMAGING O RDERABLES * (ABNORMAL) URINALYSIS NO MICROSCOPIC NO CULTURE (03/03/2018 10:17 AM CDT) Color UA YELLOW YELLOW [facility] Appearance CLEAR CLEAR [facility] Specific [place] UA 1.004 1.001 - 1.035 [facility] pH UA 5.5 5.0 - 8.0 [facility] Glucose UA NEGATIVE NEGATIVE [facility] Bilirubin UA NEGATIVE NEGATIVE [facility] Ketone UA NEGATIVE NEGATIVE [facility] Blood UA TRACE(A) NEGATIVE [facility] Protein UA NEGATIVE NEGATIVE [facility] Nitrite UA NEGATIVE NEGATIVE [facility] Leukocyte UA NEGATIVE NEGATIVE [facility] Comment: Test Performed at: [facility] [address] [place], [place] ??[address] AMADEO GONZALES DO,MPH Urine URINE SPECIMEN OBTAINED BY CLEAN CATCH PROCEDURE / Unknown 03/03/2018 10:17 AM CDT 03/03/2018 10:17 AM CDT Khushbu Gan MD LAB - URINALYSIS OR DERABLES [facility] [address] [place] [address] * (ABNORMAL) CBC W/O DIFFERENTIAL (03/03/2018 10:17 AM CDT) Only the most recent of2 resultswithin the time period is included. [facility] White Blood Cell Count 12.5(H) 3.8 - 10.8 Thousand/ uL [facility] RBC 5.11(H) 3.80 - 5.10 Million/u L [facility] Hemoglobin 16.4(H) 11.7 - 15.5 g/dL [facility] Hematocrit 48.7(H) 35.0 - 45.0 % [facility] MCV 95.3 80.0 - 100.0 fL [facility] MCH 32.1 27.0 - 33.0 pg [facility] MCHC 33.7 32.0 - 36.0 g/dL [facility] RDW 12.0 11.0 - 15.0 % [facility] Platelet Count 281 140 - 400 Thousand/ uL [facility] MPV 10.9 7.5 - 12.5 fL [facility] Comment: Test Performed at: [facility] ??[address] CHRISTIANO RITTER MD Blood BLOOD SPECIMEN / Unknown 03/03/2018 10:17 AM CDT 03/03/2018 10:17 AM CDT Khushbu Gan MD LAB - HEMATOLOGY OR DERABLES [address] [address] * PROTEIN 14-3-3 BLOOD (09/15/2017 9:52 AM CDT) Only the most recent of2 resultswithin the time period is included. [facility] Protein 14-3-3 <0.2 <0.2 ng/mL [facility] Comment: This test was developed and its analytical performance characteristics have been determined by [facility]. It has not been cleared or approved by FDA. This assay has been validated pursuant to the CLIA regulations and is used for clinical purposes. Test Performed at: [facility] [address] [place], [place] ??[address] FELICIA DIAZ MD,PHD,BARBARA 09/15/2017 9:52 AM CDT 09/15/2017 9:53 AM CDT Khushbu Gan MD LAB - CHEMISTRY ORD ERABLES Performing Organization Address [facility] Co de Phone Number [facility] [phone] [place] [address] * RHEUMATOID FACTOR BLOOD QUANTITATIVE (09/15/2017 9:52 AM CDT) Only the most recent of3 resultswithin the time period is included. [facility] Rheumatoid Factor <14 <14 IU/mL [facility] Comment: Test Performed at: [employer] [place], [place] ??[address] AMADEO GONZALES DO,MPH 09/15/2017 9:52 AM CDT 09/15/2017 9:53 AM CDT Khushbu aGn MD LAB - CHEMISTRY ORD ERABLES Performing Organization Address [facility] [place] [address] * NATACHA BLOOD SCREEN W/REFLEX TITER (09/15/2017 9:52 AM CDT) Only the most recent of3 resultswithin the time period is included. [facility] NATACHA Screen NEGATIVE NEGATIVE [facility] Comment: NATACHA IFA is a first line screen for detecting the presence of up to approximately 150 autoantibodies in various autoimmune diseases. A negative NATACHA IFA result suggests NATACHA-associated autoimmune diseases are not present at this time. Visit Physician FAQs for interpretation of all antibodies in the [place], prevalence, and association with diseases at http://education.DanceOn/ faq/JDA424 ?? Test Performed at: [employer] [facility] [place] ??[address] AMADEO GONZALES DO,MPH 09/15/2017 9:52 AM CDT 09/15/2017 9:53 AM CDT Khushbu Gan MD LAB - CHEMISTRY ORD ERABLES Performing Organization Address [facility] [place] [address] * CYCLIC CITRUL PEPTIDE AB IGG (CCP) (09/15/2017 9:52 AM CDT) Only the most recent of3 resultswithin the time period is included. Cyclic Citrullinated Peptide Antibody IgG <16 UNITS [facility] Comment: Reference Range Negative: ?<20 Weak Positive: ? 20-39 Moderate Positive: ?? 40-59 Strong Positive: ? >59 Test Performed at: [facility] ??[address] AMADEO GONZALES DO,MPH 09/15/2017 9:52 AM CDT 09/15/2017 9:53 AM CDT Khushbu Gan MD LAB - CHEMISTRY ORD ERABLES [facility] [address] [place] [address] * TSH HI LOW REFLEX FREE T4 (04/26/2016 1:16 PM DIRECTOR MACHINE) Only the most recent of2 resultswithin the time period is included. TSH 2.71 mIU/L [facility] ([facility]) Comment: ?Reference Range ?> or = 20 Years ??0.40-4.50 ? Ranges ?First trimester ?0.26-2.66 ?Second trimester ?? 0.55-2.73 ?Third trimester ?0.43-2.91 Test Performed at: [facility] [address] ??[address] AMADEO GONZALES DO,MPH 04/26/2016 1:16 PM DIRECTOR MACHINE 04/26/2016 1:16 PM DIRECTOR MACHINE Khushbu Gan MD LAB - CHEMISTRY ORD PUNEET Performing Organization Address [facility] de Phone Number [facility] ([facility]) * SACCHAROMYCES CEREVISIAE (ASCA) IGA AB (04/26/2016 1:16 PM DIRECTOR MACHINE) [facility] ASCA Antibody IgA 18.1 <=20.0 U [facility] ([facility]) Comment: Reference range(s): Negative : <=20.0 Equivocal: 20.1 - 24.9 Positive: >=25.0 ? For more information on this test, go to: http://education.WaveSyndicate/faq/scerevisiae Test Performed at: [facility] [address] [place] [address] ?? CLAUDIO MORALES MD,PHD 04/26/2016 1:16 PM DIRECTOR MACHINE 04/26/2016 1:16 PM DIRECTOR MACHINE Khushbu Gan MD LAB - SEROLOGY RACHEAL TORRES Performing Organization Address [facility] Phone Number [facility] ([facility]) * TISSUE TRANSGLUTAMINASE AB IGA (04/26/2016 1:16 PM DIRECTOR MACHINE) Only the most recent of2 resultswithin the time period is included. Pathologist [facility] TTG Antibody IgA 1 <4 U/mL [facility] ([facility]) Comment: Value Interpretation ?<4 U/mL: No Antibody Detected ? >or=4 U/mL: Antibody Detected Test Performed at: [facility] [address] [place] [address] ?? CLAUDIO MORALES MD,PHD 04/26/2016 1:16 PM DIRECTOR MACHINE 04/26/2016 1:16 PM DIRECTOR MACHINE Khushbu Gan MD LAB - SEROLOGY RACHEAL TORRES Performing Organization Address [facility]/ZIP Co de Phone Number [facility] ([facility]) * SS-A/SS-B (SJOGRENS) ANTIBODY PANEL (04/26/2016 1:16 PM DIRECTOR MACHINE) Only the most recent of2 resultswithin the time period is included. Sjogren's Antibodies (SSA) <1.0 NEG <1.0 NEG AI [facility] ([facility]) Sjogren's Antibodies (SSB) <1.0 NEG <1.0 NEG AI [facility] ([facility]) Comment: Test Performed at: [facility] [place] [address] [place], [place] ??[address] AMADEO GONZALES DO,MPH 04/26/2016 1:16 PM DIRECTOR MACHINE 04/26/2016 1:16 PM DIRECTOR MACHINE Khushbu Gan MD LAB - CHEMISTRY ORD ERABLES [facility] ([facility]) * VITAMIN D 25-HYDROXY D2+D3 BY TANDEM MASS (06/25/2014 9:23 AM DIRECTOR MACHINE) Vitamin D, 25 Hydroxy Total 35 30 - 100 ng/mL [facility] ([facility]) Comment: 25-OHD3 indicates both endogenous production and supplementation. 25-OHD2 is an indicator of exogenous sources, such as diet or supplementation. Therapy is based on measurement of Total 25-OHD, with levels <20 ng/mL indicative of Vitamin D deficiency, while levels between 20 ng/mL and 30 ng/mL suggest insufficiency. Optimal levels are > or = 30 ng/mL. Vitamin D, 25 Hydroxy D3 35 See Below ng/mL [facility] ([facility]) Comment:Reference Range: Not established Vitamin D, 25 Hydroxy D2 <4 See Below ng/mL [facility] ([facility]) Comment: Reference Range: Not established REPORT COMMENT: SPECIMEN TYPE->URINE Test Performed at: [facility] [address] ??[address] HANK AGUIRRE MD,FCAP Blood specimen (specimen) BLOOD SPECIMEN / Unknown 06/25/2014 9:23 AM DIRECTOR MACHINE 06/25/2014 9:23 AM DIRECTOR MACHINE Khushbu Gan MD LAB - CHEMISTRY ORD ERABLES Performing Organization Address [facility]/ZIP Co de Phone Number [facility] ([facility]) * SVP BUSINESS DEVELOPMENT ANTIBODY (06/25/2014 9:23 AM DIRECTOR MACHINE) RITESH [employer]P BUSINESS DEVELOPMENT Antibody <1.0 NEG <1.0 NEG AI [facility] ([facility]) Comment: Test Performed at: [facility] [place] [address] [place], [place] ??[address] AMADEO GONZALES DO,MPH Blood specimen (specimen) BLOOD SPECIMEN / Unknown 06/25/2014 9:23 AM DIRECTOR MACHINE 06/25/2014 9:23 AM DIRECTOR MACHINE Khushbu Gan MD LAB - CHEMISTRY ORD ERABLES Performing Organization Address [facility] Co de Phone Number [facility] ([facility]) * HLA TYPING B27 (06/25/2014 9:23 AM DIRECTOR MACHINE) HLA-B27 NEGATIVE NEGATIVE [facility] ([facility]) Comment: Test Performed at: [facility] ??[address] CHRISTIANO RITTER MD Blood specimen (specimen) BLOOD SPECIMEN / Unknown 06/25/2014 9:23 AM DIRECTOR MACHINE 06/25/2014 9:23 AM DIRECTOR MACHINE Khushbu Gan MD LAB - CHEMISTRY ORD ERABLES Performing Organization Address [facility] Co de Phone Number [facility] ([facility]) * HEPATITIS C ANTIBODY (06/25/2014 9:23 AM DIRECTOR MACHINE) Hepatitis C Antibody NON-REACTI VE NON-REACT FELIPE [facility] ([facility]) Signal/Cutoff 0.01 <1.00 [facility] ([facility]) Comment: Test Performed at: [facility] [place] [address] [place], [place] ??[address] AMADEO GONZALES DO,MPH Blood specimen (specimen) BLOOD SPECIMEN / Unknown 06/25/2014 9:23 AM DIRECTOR MACHINE 06/25/2014 9:23 AM DIRECTOR MACHINE Khushbu Gan MD LAB - CHEMISTRY ORD ERABLES [facility] ([facility]) Care Teams Director Of Consumer Affairs Relationship Specialty Start Date End Date Sharita De La Paz MD [address] [place] [id number] PCP - General 01/29/15
--- OUTSIDE RECORDS SUMMARY | 2024-06-22 10:45 | XMS_ITS | Clinical Summary ---
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 Active Active Problems No known active problems Encounters Date Type Department Care Team Description 06/14/2024 External Device Data STL ABSTRACTION Provider, Abstract 06/05/2024 Orders Only [facility] [place] Annie [address] [place] [address] Malik Ko MD 05/21/2024 Orders Only [facility] [place] [facility] Annie [address] [place] [address] Malik Ko MD Abnormal mammogram of right breast (Primary Dx) 05/21/2024 Orders Only [facility] [place] Annie [address] [place] [address] Malik Ko MD 03/27/2024 External Device Data STL ABSTRACTION Provider, Abstract from Last 3 Months Family History Medical History Relation Name Comments No Known Problems Brother No Known Problems Child 1 No Known Problems Child 2 No Known Problems Child 3 Cancer Father Bladder Diabetes Mother No Known Problems Sister Relation Name Status Comments Brother Alive Child 1 Alive Child 2 Alive Child 3 Alive Father Mother Sister Alive Social History Tobacco Use Types Packs/Day Years Used Date Smoking Tobacco: Former Cigarettes 1.5 20 1 07/04/1999 - 05/03/2020 Smokeless Tobacco: Never Alcohol Use Standard Drinks/Week Comments Not Currently 0 (1 standard drink = 0.6 oz pur e alcohol) Comments Unknown Sex and Gender Information Value Date Recorded Sex Assigned at Not on file Legal Sex Female 5:46 PM PROFESSOR OF VIOLIN Gender Identity Not on file Sexual Orientation Not on file Last Filed Vital Signs Vital Sign Reading Time Taken Comments Blood Pressure 136/87 01/12/2024 10:19 AM CDT Pulse 81 01/12/2024 10:19 AM CDT Temperature 36.1 ??C (96.9 ??F) 01/12/2024 10:19 AM C DT Respiratory Rate 14 01/12/2024 10:19 AM CDT Oxygen Saturation 98% 01/12/2024 10:19 AM CDT Inhaled Oxygen Concentration - - Weight 69.2 kg (152 lb 9.6 oz) 01/12/2024 10:19 AM CDT Height 167.6 cm (5' 6 ) 01/12/2024 10:19 AM CDT Body Mass Index 24.63 01/12/2024 10:19 AM CDT Plan of Treatment Upcoming Encounters Date Type Department Care Team (Late st Contact Info) Description 07/06/2024 11:30 AM PROFESSOR OF VIOLIN Office Visit [facility] [place] [address] [facility] [address] [place] [address] Malik Ko MD [address] [facility] [address] [place] [address] Health Maintenance Due Date Last Done Comments HEPATITIS B VACCINES (1 of 3 - 19+ 3-dose series) 1993 CERVICAL CANCER SCREENING 2004 FIT-DNA Q 3 years 2019 FIT/FOBT Q 1 year 2019 Flex Sig/CT Colonography Q 5 years 2019 INFLUENZA VACCINE (#1) 2023 , 04/26/2019, 03/04/2016, Additional history exists Preventative Visit- Commercial 05/23/2024 BREAST CANCER SCREENING 05/18/2025 05/18/2024 DTAP/TDAP/TD VACCINES (2 - T d or Tdap) 12/30/2026 12/30/2016 COLORECTAL SCREENING 02/02/2034 02/03/2024 Colorectal Cancer Screening 02/02/2034 Procedures Procedure Name Priority Date/Time Associated Diagnosis Comments MAMMO DIAGNOSTIC UNI RIGHT W CONTRAST Routine 06/05/2024 3:12 PM PROFESSOR OF VIOLIN MAMMO SCREENING BILAT Routine 05/18/2024 8:16 AM PROFESSOR OF VIOLIN from Last 3 Months Results * MAMMO DIAGNOSTIC UNI RIGHT W CONTRAST (06/05/2024 3:12 PM PROFESSOR OF VIOLIN) Anatomical Region Laterality Modality Breast Right Other Malik Ko MD MAMMO ORDERABLES Final Result * MAMMO SCREENING BILAT (05/18/2024 8:16 AM PROFESSOR OF VIOLIN) Anatomical Region Laterality Modality Breast Bilateral Other Malik oK MD MAMMO ORDERABLES Final Result from Last 3 Months Insurance [employer] BLUE ACCESS/TRUE BLUE PPO MEDICARE PART A AND B BCBS BLUE ACCESS/TRUE BLUE PPO
--- OUTSIDE RECORDS SUMMARY | 2024-06-22 10:45 | XMS_ITS | Encounter Summary ---
Author Organization [facility] Address [address] [place] [address] Care Team Providers Care Relish Maker Name Role Phone Sharita De La Paz MD Primary Care Provider [phone] Reason for Visit * Reason Onset Date Comments MEDICATION REFILL 03/15/2019 Encounter Details Date Type Department Care Team (Late st Contact Info) Description 03/15/2019 Refill [facility] Pediatrics - Rheumatology [address] [place] [id number] Khushbu Gan MD [address] [facility] 5th [place] [phone] MEDICATION REFILL Social History Tobacco Use Types Packs/Day Years Used Date Smoking Tobacco: Every Day Cigarettes Smokeless Tobacco: Never Alcohol Use Standard Drinks/Week Comments No 0 (1 standard drink = 0.6 oz pur e alcohol) Sex and Gender Information Value Date Recorded Sex Assigned at Not on file Gender Identity Not on file Sexual Orientation Not on file documented as of this encounter Plan of Treatment Not on file documented as of this encounter Visit Diagnoses Diagnosis Polyarthralgia Pain in joint, multiple sites High risk medication use Encounter for long-term (current) use of other medications Long-term use of immunosuppressant medication Encounter for long-term (current) use of other medications documented in this encounter Care Teams Relish Maker Relationship Specialty Start Date End Date Sharita De La Paz MD [address] [place] [address] [place] [phone] PCP - General 01/29/15 documented as of this encounter
--- OUTSIDE RECORDS SUMMARY | 2024-06-22 10:45 | XMS_ITS | Clinical Summary ---
Author Organization [facility] Address [address] [place] [address] Phone Care Team Providers Care Roll Tender Name Role Phone Ivette Macedo APRN, SEMICONDUCTOR ASSEMBLER Primary Care Provider Jcarlos Bentley MD Unavailable [phone] Allergies No known active allergies Medications ARIPiprazole (ABILIFY) 5 MG Tablet Take 5 mg by mouth daily. Active Desvenlafaxine Succinate 100 MG TABLET SR 24 HR Take by mouth. Activ e Galcanezumab-gn lm (Emgality, 300 MG Dose,) 100 MG/ML Solution Prefilled Syringe by Subcutaneous route. Active montelukast (SINGULAIR) 10 MG Tablet Take 10 mg by mouth every evening. Active propranolol (INDERAL LA) 60 MG CAPSULE SR 24 HR Take 60 mg by mouth daily. Active LORazepam (Ativan) 0.5 MG Tablet Take 0.5 mg by mouth every 6 hours as needed. Active Family History Medical History Relation Name Comments Diabetes Maternal Uncle Diabetes Mother Hypertension Mother Relation Name Status Comments Maternal Uncle Mother Social History Tobacco Use Types Packs/Day Years Used Date Smoking Tobacco: Former Cigarettes 0 05/23/1993 - 05/23/2019 Smokeless Tobacco: Never Alcohol Use Standard Drinks/Week Comments Not Currently 0 (1 standard drink = 0.6 oz pur e alcohol) Comments Unknown Sex and Gender Information Value Date Recorded Sex Assigned at Not on file Legal Sex Female 12:39 AM CDT Gender Identity Not on file Sexual Orientation Not on file Last Filed Vital Signs Vital Sign Reading Time Taken Comments Blood Pressure 114/60 08/16/2022 10:25 AM CDT Pulse 79 08/16/2022 10:25 AM CDT Temperature 36.2 ??C (97.2 ??F) 08/16/2022 1 0:25 AM CDT Respiratory Rate 18 08/16/2022 10:2 5 AM CDT Oxygen Saturation 87% 08/16/2022 10: 25 AM CDT Inhaled Oxygen Concentration - - Weight 81.5 kg (179 lb 11.2 oz) 023 10:25 AM CDT Height 167.6 cm (5' 6 ) 08/16/2022 10:2 5 AM CDT Body Mass Index 29 08/16/2022 10:25 AM CDT Plan of Treatment Health Maintenance Due Date Last Done Comments Hepatitis C Virus (HCV) Screening 1974 Hepatitis B Immunization (1 of 3 - 19+ 3-dose series) 1993 Pap Smear 1995 Cervical Cancer Screening (CCS) 2004 HPV/Cotest 2004 Discussion re Starting/Frequency of Mammograms 2014 Colonoscopy 2019 Colorectal Cancer Screening 2019 Influenza Immunization (#1) 01/22/202403/23, 04/26/2019, 02/20/2018, Additional history exists SARS-COV-2 Immunization ( season) 2024 11/07/2020, 10/10/2020 Cologuard 2024 Immunochemical Fecal Occult Blood 2024 Respiratory Syncytial Virus (RSV) Immunization (Adult) (1 - 1-dose 75+ series) 2049 Pneumococcal Immunization Combined Aged Out 09/01/2011 No longer eligible based on patient's age to complete this topic DTaP/Tdap/Td Immunization Discontinued 12/30/2016 TdaP Immunization Completed 12/30/2016 Meningococcal Immunization (ACWY) Aged Out No longer eligible based on patient's age to complete this topic Rotavirus Immunization Aged Out No lo nger eligible based on patient's age to complete this topic [place] [address] [place] [address] Care Teams Roll Tender Relationship Specialty Start Date End Date Ivette Macedo, NEWS CLIPPING CUTTER, SEMICONDUCTOR ASSEMBLER [address] [place] [address] PCP - General Certified Nurse Practitioner 05/19/22 Jcarlos Bentley MD [address] [place] [address] Consulting Physician Neurology 08/16/22
--- OUTSIDE RECORDS SUMMARY | 2024-06-22 10:45 | XMS_ITS | Clinical Summary ---
Author Organization [facility] Address [address] [place] [address] Care Team Providers Care Plant Etiologist Name Role Phone Sharita De La Paz MD Primary Care Provider [phone] Source Comments [facility],non-owned Affiliates and Associated Physician Practices is amultiple site organization consisting of ambulatory clinics and hospital sitesin [place], [place], [place] and [place]. This disclosure is being madepursuant to the Care Everywhere program and may not contain all information available regarding this patient. Last updated 18.[facility] Allergies No known active allergies Medications * Be aware that medications may not be up to date on this document. Alwaysverify current medications with the patient. Medication Sig Dispensed Refills Start Date End Date Status clonazePAM (KLONOPIN) 0.5 MG tablet Take 0.5 mg by mouth 2 times daily 2 03/22/2018 Active desvenlafaxine succinate ER 24hr (PRISTIQ) 100 MG tablet Take 100 mg by mouth once daily Active Galcanezumab-gnlm (EMGALITY) 120 MG/ML SOSY Active hydroxychloroquine (PLAQUENIL) 200 MG tablet Take 200 mg by mouth 2 times daily Active cyanocobalamin (VITAMIN B-12) 1000 MCG tablet Take 1,000 mcg by mouth once daily Active meclizine (ANTIVERT) 25 MG tabletIndications:Be nign paroxysmal positional vertigo, unspecified laterality Take 1 (one) tablet by mouth 2 times daily 180 tablet 3 02/11/2021 Active iron polysaccharides (NIFEREX 150) 150 MG capsule 02/12/2021 Active rosuvastatin (CRESTOR) 20 MG tablet rosuvastatin 20 mg tablet TAKE 1 TABLET BY MOUTH EVERY DAY 02/12/2021 Active topiramate (TOPAMAX) 100 MG tablet Take 100 mg by mouth 2 times daily Active gabapentin (NEURONTIN) 300 MG capsuleIndications:C hronic tension-type headache, intractable Take 1 (one) capsule by mouth 3 times daily 270 capsule 3 07/06/2021 Active Active Problems Problem Noted Date Diagnosed Date Polyarthralgia 09/21/2017 Abnormal MRI, musculoskeletal 09/21/2017 Pain in joint 03/06/2015 Low back pain 07/31/2014 Major depressive disorder, single episode 2014 Overview (08/22/2017): undercontrol with meds Immunizations Name Administration Dates Next Due FLU VACCINE QUAD IIV4 SPLIT 0.25 ML IM 9,03/04/2016 INFLUENZA VACCINE 02/20/2018 Family History Medical History Relation Name Comments None Known Brother Status: Alive Arthritis - Rheumatoid Father Hypertension Father Status: Alive Diabetes Mother Hypertension Mother Status: Alive None Known Sister Status: Alive Relation Name Status Comments Brother Alive Father Alive Mother Alive Sister Alive Social History Tobacco Use Types [...] Comments Blood Pressure 121/74 07/06/2021 10:40 AM COATING MACHINE HELPER Pulse 81 07/06/2021 10:40 AM COATING MACHINE HELPER Temperature 36.4 ??C (97.6 ??F) 07/06/2021 10:[address] Respiratory Rate 18 10/27/2016 9:40 AM CDT Oxygen Saturation 99% 02/11/2021 8:31 AM CDT Inhaled Oxygen Concentration - - Weight 78.9 kg (174 lb) 07/06/2021 10:40 AM COATING MACHINE HELPER Height 167.6 cm (5' 6 ) 07/06/2021 10:40 AM COATING MACHINE HELPER Body Mass Index 28.08 07/06/2021 10:40 AM COATING MACHINE HELPER Plan of Treatment Health Maintenance Due Date Last Done Comments COLOGUARD (AGES 45-75) - COLON CA SCREENING 1974 COLON MONITORING 1974 COLONOSCOPY - COLON CA SCREENING 1974 CT COLONOGRAPHY - COLON CA SCREENING 1974 Colorectal Cancer Screening 1974 FIT - COLON CA SCREENING 1974 FLEX SIG - COLON CA SCREENING 1974 MAMMOGRAM 1974 MEDICARE AWV ? 12 MONTHS 1974 PAP SMEAR 1974 HIV SCREENING 1989 DTAP/TDAP/TD VACCINES (1 - Tdap) 1993 HEPATITIS B VACCINE (1 of 3 - 19+ 3-dose series) 1993 PNEUMOCOCCAL VACCINE (1 of 2 - PCV) 1993 SCREENING FOR DIABETES 11/13/2023 1, 11/22/2019, 01/23/2019, Additional history exists COVID-19 VACCINE (1 - 2023- season) 2024 INFLUENZA VACCINE (#1) 2024 1, 04/26/2019, 02/20/2018, Additional history exists DEPRESSION SCREENING 05/23/2024 ZOSTER VACCINE (1 of 2) 2024 HEPATITIS C SCREENING Completed 06/25/2014 HIB VACCINE Aged Out No longer eligi ble based on patient's age to complete this topic HPV VACCINE Aged Out No longer eligi ble based on patient's age to complete this topic MENINGOCOCCAL (Group B) VACCINE Aged Out No longer eligible based on patient's age to complete this topic MENINGOCOCCAL VACCINE Aged Out No fox lucila eligible based on patient's age to complete this topic Procedures Procedure Name Priority Date/Time Associated Diagnosis Comments COMPREHENSIVE METABOLIC PANEL Routine 11/12/2020 11:06 AM CDT Polyarthralgia HEPATITIS C ANTIBODY Routine 06/25/2014 9:23 AM COATING MACHINE HELPER from Last 3 Months or Most Recently Relevant to Health Maintenance Results * (ABNORMAL) COMPREHENSIVE METABOLIC PANEL (11/12/2020 11:06 AM CDT) Glucose 78 65 - 99 mg/dL [facility] [...] 29 U/L [facility] Comment: Test Performed at: [employer] [place], [place] ??[phone] AMADEO GONZALES DO,MPH Blood BLOOD SPECIMEN / Unknown 11/12/2020 11:06 AM CDT 11/12/2020 11:08 AM CDT Jay Patel MD LAB - CHEMISTRY RACHEAL TORRES [facility] Organization Address City/State/ZIP Co de Phone Number [facility] [address] [place] [address] * HEPATITIS C ANTIBODY (06/25/2014 9:23 AM COATING MACHINE HELPER) Hepatitis C Antibody NON-REACTI VE NON-REACT FELIPE [facility]) Signal/Cutoff 0.01 <1.00 [facility] ([facility]) Comment: Test Performed at: [facility] [address] [place], [place] ??[phone] AMADEO GONZALES DO,MPH Blood specimen (specimen) BLOOD SPECIMEN / Unknown 06/25/2014 9:23 AM COATING MACHINE HELPER 06/25/2014 9:23 AM COATING MACHINE HELPER Khushbu Gan MD LAB - CHEMISTRY ORD ERABLES [facility] ([facility]) from Last 3 Months or Most Recently Relevant to Health Maintenance Care Teams Plant Etiologist Relationship Specialty Start Date End Date Sharita De La Paz MD [address] [phone] PCP - General 01/29/15
--- OUTSIDE RECORDS SUMMARY | 2024-06-22 10:45 | XMS_ITS | Encounter Summary ---
Author Organization [facility] Address [address] [place] [address] Care Team Providers Care Field Recorder Name Role Phone Sharita De La Paz MD Primary Care Provider Reason for Visit * Reason Onset Date Comments MEDICATION REFILL 03/14/2019 Encounter Details Date Type Department Care Team (Late st Contact Info) Description 03/14/2019 Refill [facility] Pediatrics - Rheumatology [address] [place] [id number] Khushbu Gan MD [address] [facility] 5th [place] [phone] MEDICATION REFILL Social History Tobacco Use Types [...] medications documented in this encounter Care Teams Field Recorder Relationship Specialty Start Date End Date Sharita De La Paz MD [address] [place] [address] [place] [phone] PCP - General 01/29/15 documented as of this encounter
--- OUTSIDE RECORDS SUMMARY | 2024-06-22 10:45 | XMS_ITS | Data Portability ---
Author Organization [facility], Main Office Address [address] [place] [address] Assessment No assessment recorded. Plan of Treatment Reminders Order Date Submit Date Provider Last Modified By Organization Details Last Modified Time Details Appointments Physical/ Annual Wellness 30 2024 10:30A Edgar [place] NP Not available Not available Not available Lab vitamin D, 25-hydrox y, total, serum 2022 023 LILIA Not available 03/23/2023 01:46:05 TSH, serum or plasma 2022 023 LILIA Not available 03/22/2023 20:08:49 BMP, serum or plasma 2022 023 LILIA Not available 03/22/2023 19:40:59 hepatic function panel, serum 2022 023 LILIA Not available 03/22/2023 19:41:04 vitamin B12, serum 2022 023 LILIA Not available 03/22/2023 20:45:21 folate, serum 2022 023 LILIA Not available 03/22/2023 20:45:26 CBC w/ auto diff 2022 023 LILIA Not available 03/22/2023 19:19:01 calcium, ionized, blood 2023 024 [email or web address] Not available 06/21/2023 13:22:44 PTH (parathyr oid hormone), intact, serum or plasma 2023 024 [email or web address] Not available 06/21/2023 13:24:21 vitamin D, 25-hydrox y, total, serum 2023 024 [email or web address] Not available 06/21/2023 13:24:47 TSH, serum or plasma 2023 024 [email or web address] Not available 06/21/2023 13:25:51 magnesium , serum or plasma 2023 024 [email or web address] Not available 06/21/2023 13:26:40 vitamin B12, serum 2023 024 [email or web address] Not available 06/21/2023 13:25:09 folate, serum 2023 024 [email or web address] Not available 06/21/2023 13:25:30 CBC w/ auto diff 2023 024 [email or web address] Not [facility] 06/21/2023 13:26:11 CBC w/ auto diff 2023 024 LILIA Not available 09/20/2023 20:33:31 calcium, ionized, blood 2023 024 LILIA Not available 09/23/2023 11:01:39 drug of abuse panel, urine 2023 024 [facility] (Lab), [address] [place], [address], 03/23/2024 18:48:53 Referral None recorded. Procedures None recorded. Surgeries None recorded. Imaging None recorded. Medication Orders lorazepam 1 mg tablet 2022 023 [facility]/Pharmacy #[id number], [address], [place], [address], 03/22/2023 11:34:18 lorazepam 1 mg tablet 2023 024 [facility]/Pharmacy #[id number], [address], [place], [address], 06/21/2023 11:36:37 lorazepam 1 mg tablet 2023 024 [facility]/Pharmacy #[id number], [address], [place], [address], 09/20/2023 11:23:58 lorazepam 1 mg tablet 2023 024 [facility]/Pharmacy #[id number], [address], [place], [address], 03/23/2024 11:40:38 trazodone 50 mg tablet 2023 024 [facility]/Pharmacy #[id number], [address], [place], [address], 03/23/2024 11:40:37 Patient TargetsNo targets recorded. Patient InstructionsNo instructions recorded. Reason for Referral None Reported. Results Created Date Observation Date Name Description Value Unit Range Abnormal Flag Note LastModifiedBy Organization Detail LastModifiedTime 03/22/2003/22/2023 CBC/C OMPLE TE BLD COUNT W/DIF F white blood cells 10.5 x10'3 /uL 4.2-10 .8 Not Available [facility] (Lab) [address] [place], [address], 03/22/2023 19:19:01 03/22/2003/22/2023 CBC/C OMPLE TE BLD COUNT W/DIF F red blood cells 4.89 x10'6 /uL 3.80-5 .20 Not Available [facility] (Lab) [address] [place], [address], 03/22/2023 19:19:01 03/22/2003/22/2023 CBC/C OMPLE TE BLD COUNT W/DIF F hemoglobin 16.0 g/dL 12.0-1 5.6 high Not Available [facility] (Lab) [address] [place], [address], 03/22/2023 19:19:01 03/22/2003/22/2023 CBC/C OMPLE TE BLD COUNT W/DIF F hematocrit 45.3 % 35.7-4 5.7 Not Available [facility] (Lab) [address] [place], [address], 03/22/2023 19:19:01 03/22/2003/22/2023 CBC/C OMPLE TE BLD COUNT W/DIF F mean red cell volume 92.6 fL 82.0-9 9.0 Not Available [facility] (Lab) [address] [place], [address], 03/22/2023 19:19:01 03/22/2003/22/2023 CBC/C OMPLE TE BLD COUNT W/DIF F mean red cell hemoglobin 32.7 pg 27.0-3 3.0 Not Available [facility] (Lab) [address] [place], [address], 03/22/2023 19:19:01 03/22/2003/22/2023 CBC/C OMPLE TE BLD COUNT W/DIF F mean RBC HGB concentratio n 35.3 g/dL 31.0-3 6.0 Not Available [facility] (Lab) [address] [place], [address], 03/22/2023 19:19:01 03/22/2003/22/2023 CBC/C OMPLE TE BLD COUNT W/DIF F red cell distribution width 11.8 % 11.8-1 5.5 Not Available [facility] (Lab) [address] [place], [address], 03/22/2023 19:19:01 03/22/2003/22/2023 CBC/C OMPLE TE BLD COUNT W/DIF F platelets 289 x10'3 /uL 150-40 0 Not Available [facility] (Lab) [address] [place], [address], 03/22/2023 19:19:01 03/22/2003/22/2023 CBC/C OMPLE TE BLD COUNT W/DIF F mean platelet volume 11.4 fL 9.0-12 .4 Not Available [facility] (Lab) [address] [place], [address], 03/22/2023 19:19:01 03/22/2003/22/2023 CBC/C OMPLE TE BLD COUNT W/DIF F neutrophils 64.2 % 39.0-7 2.0 Not Available [facility] (Lab) [address] [place], [address], 03/22/2023 19:19:01 03/22/2003/22/2023 CBC/C OMPLE TE BLD COUNT W/DIF F lymphocytes 26.9 % 16.0-4 7.0 Not Available [facility] (Lab) [address] [place], [address], 03/22/2023 19:19:01 03/22/2003/22/2023 CBC/C OMPLE TE BLD COUNT W/DIF F monocytes 6.6 % 5.0-12 .0 Not Available [facility] (Lab) [address] [place], [address], 03/22/2023 19:19:01 03/22/2003/22/2023 CBC/C OMPLE TE BLD COUNT W/DIF F eosinophils 1.4 % 1.0-7. 0 Not Available [facility] (Lab) [address] [place], [address], 03/22/2023 19:19:01 03/22/2003/22/2023 CBC/C OMPLE TE BLD COUNT W/DIF F basophils 0.5 % 0.0-2. 0 Not Available [facility] (Lab) [address] [place], [address], 03/22/2023 19:19:01 03/22/2003/22/2023 CBC/C OMPLE TE BLD COUNT W/DIF F immature granulocytes 0.4 % 0.00-0 .50 Not Available [facility] (Lab) [address] [place], [address], 03/22/2023 19:19:01 03/22/2003/22/2023 CBC/C OMPLE TE BLD COUNT W/DIF F neutrophils, absolute count 6.77 x10'3 /uL 1.5-8. 0 Not Available [facility] (Lab) [address] [place], [address], 03/22/2023 19:19:01 03/22/2003/22/2023 CBC/C OMPLE TE BLD COUNT W/DIF F lymphocytes, absolute count 2.83 x10'3 /uL 1.07-3 .43 Not Available [facility] (Lab) [address] [place], [address], 03/22/2023 19:19:01 03/22/2003/22/2023 CBC/C OMPLE TE BLD COUNT W/DIF F monocytes, absolute count 0.69 x10'3 /uL 0.29-0 .99 Not Available [facility] (Lab) [address] [place], [address], 03/22/2023 19:19:01 03/22/2003/22/2023 CBC/C OMPLE TE BLD COUNT W/DIF F eosinophils, absolute count 0.15 x10'3 /uL 0.02-0 .53 Not Available [facility] (Lab) [address] [place], [address], 03/22/2023 19:19:01 03/22/2003/22/2023 CBC/C OMPLE TE BLD COUNT W/DIF F basophils, absolute count 0.05 x10'3 /uL 0.01-0 .08 Not Available [facility] (Lab) [address] [place], [address], 03/22/2023 19:19:01 03/22/2003/22/2023 CBC/C OMPLE TE BLD COUNT W/DIF F immature granulocytes ,absolute 0.04 x10'3 /uL 0.00-0 .05 Not Available [facility] (Lab) [address] [place], [address], 03/22/2023 19:19:01 03/22/2003/22/2023 CBC/C OMPLE TE BLD COUNT W/DIF F nucleated red blood cells 0.0 % -0 Not Available [facility] (Lab) [address] [place], [address], 03/22/2023 19:19:01 03/22/2003/22/2023 CBC/C OMPLE TE BLD COUNT W/DIF F NRBC# 0.00 x10'3 /uL Not Available [facility] (Lab) [address] [place], [address], 03/22/2023 19:19:01 03/22/2003/22/2023 BASIC METAB OLIC PANEL sodium 142 mmol/ L 137-14 5 Not Available [facility] (Lab) [address] [place], [address], 03/22/2023 19:40:59 03/22/2003/22/2023 BASIC METAB OLIC PANEL potassium 4.0 mmol/ L 3.5-5. 1 Not Available [facility] (Lab) [address] [place], [address], 03/22/2023 19:40:59 03/22/2003/22/2023 BASIC METAB OLIC PANEL chloride 108 mmol/ L 98-107 high Not Available [facility] (Lab) [address] [place], [address], 03/22/2023 19:40:59 03/22/2003/22/2023 BASIC METAB OLIC PANEL carbon dioxide 26 mmol/ L 22-30 Not Available [facility] (Lab) [address] [place], [address], 03/22/2023 19:40:59 03/22/2003/22/2023 BASIC METAB OLIC PANEL anion gap 12.0 mmol/ L 14-22 low Not Available [facility] (Lab) [address] [place], [address], 03/22/2023 19:40:59 03/22/2003/22/2023 BASIC METAB OLIC PANEL glucose 104 mg/dL 70-99 high Not Available [facility] (Lab) [address] [place], [address], 03/22/2023 19:40:59 03/22/2003/22/2023 BASIC METAB OLIC PANEL BUN 10 mg/dL 8-19 Not Available [facility] (Lab) [address] [place], [address], 03/22/2023 19:40:59 03/22/2003/22/2023 BASIC METAB OLIC PANEL creatinine 0.62 mg/dL 0.66-1 .25 low Not Available [facility] (Lab) [address] [place], [address], 03/22/2023 19:40:59 03/22/2003/22/2023 BASIC METAB OLIC PANEL GFR >60 Refer ence Range : [place] ge GFR Healt hy Adult : >60 mL/mi n/1.7 3 m2 Chron ic Kidne y Disea se: 15-60 mL/mi n/1.7 3 m2 Kidne y Failu re: <15/m L/min /1.73 m2 www.n iddk. nih.g ov The MDRD study equat ion has not been valid ated in child pat <18 years of age; pregn ant women ; the elder ly >85 years of age; or in some racia l or ethni c subgr oups, such as Hispa nics. Outsi de the valid ated cierra eters , estim ated GFR is less accur ate, requi ring clini kenrick judgm ent on a case- by-ca se basis . Clini kenrick inter preta tion for other races and ages must be made by the clini clyde. The MDRD study equat ion has not been valid ated for the evalu ation of serum creat inine relat ed to nutri tonny l statu s or medic ation usage . For perso ns <18 years of age, a pedia tric GFR calcu lator is avail able on the [facility] websi te: https ://corbin lisa.sarita garcia.o keira/pr ofess ional s/kdo qi/gf r_cal culat or Not Available [facility] (Lab) [address] [place], [address], 03/22/2023 19:40:59 03/22/2003/22/2023 BASIC METAB OLIC PANEL calcium 10.9 mg/dL 8.4-10 .2 high Not Available [facility] (Lab) [address] [place], [address], 03/22/2023 19:40:59 03/22/2003/22/2023 HEPAT IC/LI JULIO PANEL alkaline phosphatase 74 U/L 38-126 Not Available [facility] (Lab) [address] [place], [address], 03/22/2023 19:41:04 03/22/20 23 03/22/2023 HEPAT IC/LI JULIO PANEL alanine aminotransfe rase 36 U/L 0-35 high Not Available [facility] (Lab) [address] [place], [address], 03/22/2023 19:41:04 03/22/20 23 03/22/2023 HEPAT IC/LI JULIO PANEL aspartate aminotransfe rase 26 U/L 15-37 Not Available [facility] (Lab) [address] [place], [address], 03/22/2023 19:41:04 03/22/2003/22/2023 HEPAT IC/LI JULIO PANEL bilirubin, total 0.50 mg/dL 0.20-1 .30 Not Available [facility] (Lab) [address] [place], [address], 03/22/2023 19:41:04 03/22/2003/22/2023 HEPAT IC/LI JULIO PANEL bilirubin, conjugated (direct) 0.00 mg/dL 0.00-0 .30 Not Available [facility] (Lab) [address] [place], [address], 03/22/2023 19:41:04 03/22/2003/22/2023 HEPAT IC/LI JULIO PANEL biliurubin,u ncong. (indirect) 0.20 mg/dL 0.00-1 .1 Not Available [facility] (Lab) [address] [place], [address], 03/22/2023 19:41:04 03/22/2003/22/2023 HEPAT IC/LI JULIO PANEL total protein 7.8 g/dL 6.3-8. 2 Not Available [facility] (Lab) [address] [place], [address], 03/22/2023 19:41:04 03/22/2003/22/2023 HEPAT IC/LI JULIO PANEL albumin 4.8 g/dL 3.4-5. 0 Not Available [facility] (Lab) [address] [place], [address], 03/22/2023 19:41:04 03/22/2003/22/2023 HEPAT IC/LI JULIO PANEL globulin 3.0 g/dL 2.6-4. 2 Not Available [facility] (Lab) [address] [place], [address], 03/22/2023 19:41:04 03/22/20 23 03/22/2023 HEPAT IC/LI JULIO PANEL A/G ratio 1.6 ratio 1.0-2. 0 Not Available [facility] (Lab) [address] [place], [address], 03/22/2023 19:41:04 03/22/20 23 03/22/2023 VITAM IN D 25-HY DROXY vd25oh 24.0 NG/mL 30-100 low Vitam in D Statu s: Defic ient: <20 ng/mL Insuf ficie nt: 20-29 ng/mL Suffi cient : 30-10 0 ng/mL Not Available [facility] (Lab) [address] [place], [address], 03/22/2023 19:54:38 03/22/2003/22/2023 TSH thyroid-stim ulating hormone 1.800 uIU/m L 0.465- 4.680 Not Available [facility] (Lab) [address] [place], [address], 03/22/2023 20:08:49 03/22/2003/22/2023 VITAM IN B12 (SARI AVERY ) vb12 311 pg/mL 239-93 1 Not Available [facility] (Lab) [address] [place], [address], 03/22/2023 20:45:21 03/22/2003/22/2023 FOLAT E, SERUM /PLAS MA folate 17.1 NG/mL 2.76-2 0.0 Not Available [facility] (Lab) [address] [place], [address], 03/22/2023 20:45:26 06/21/19 24 06/21/2023 CBC/C OMPLE TE BLD COUNT W/DIF F white blood cells 11.0 x10'3 /uL 4.2-10 .8 high Not Available [facility] (Lab) [address] [place], [address], 06/21/2023 20:39:58 06/21/19 24 06/21/2023 CBC/C OMPLE TE BLD COUNT W/DIF F red blood cells 5.10 x10'6 /uL 3.80-5 .20 Not Available [facility] (Lab) [address] [place], [address], 06/21/2023 20:39:58 06/21/19 24 06/21/2023 CBC/C OMPLE TE BLD COUNT W/DIF F hemoglobin 16.7 g/dL 12.0-1 5.6 high Not Available [facility] (Lab) [address] [place], [address], 06/21/2023 20:39:58 06/21/19 24 06/21/2023 CBC/C OMPLE TE BLD COUNT W/DIF F hematocrit 47.5 % 35.7-4 5.7 high Not Available [facility] (Lab) [address] [place], [address], 06/21/2023 20:39:58 06/21/19 24 06/21/2023 CBC/C OMPLE TE BLD COUNT W/DIF F mean red cell volume 93.1 fL 82.0-9 9.0 Not Available [facility] (Lab) [address] [place], [address], 06/21/2023 20:39:58 06/21/19 24 06/21/2023 CBC/C OMPLE TE BLD COUNT W/DIF F mean red cell hemoglobin 32.7 pg 27.0-3 3.0 Not Available [facility] (Lab) [address] [place], [address], 06/21/2023 20:39:58 06/21/19 24 06/21/2023 CBC/C OMPLE TE BLD COUNT W/DIF F mean RBC HGB concentratio n 35.2 g/dL 31.0-3 6.0 Not Available [facility] (Lab) [address] [place], [address], 06/21/2023 20:39:58 06/21/19 24 06/21/2023 CBC/C OMPLE TE BLD COUNT W/DIF F red cell distribution width 12.0 % 11.8-1 5.5 Not Available [facility] (Lab) [address] [place], [address], 06/21/2023 20:39:58 06/21/19 24 06/21/2023 CBC/C OMPLE TE BLD COUNT W/DIF F platelets 258 x10'3 /uL 150-40 0 Not Available [facility] (Lab) [address] [place], [address], 06/21/2023 20:39:58 06/21/19 24 06/21/2023 CBC/C OMPLE TE BLD COUNT W/DIF F mean platelet volume 11.2 fL 9.0-12 .4 Not Available [facility] (Lab) [address] [place], [address], 06/21/2023 20:39:58 06/21/19 24 06/21/2023 CBC/C OMPLE TE BLD COUNT W/DIF F neutrophils 66.0 % 39.0-7 2.0 Not Available [facility] (Lab) [address] [place], [address], 06/21/2023 20:39:58 06/21/19 24 06/21/2023 CBC/C OMPLE TE BLD COUNT W/DIF F lymphocytes 25.3 % 16.0-4 7.0 Not Available [facility] (Lab) [address] [place], [address], 06/21/2023 20:39:58 06/21/19 24 06/21/2023 CBC/C OMPLE TE BLD COUNT W/DIF F monocytes 5.9 % 5.0-12 .0 Not Available [facility] (Lab) [address] [place], [address], 06/21/2023 20:39:58 06/21/19 24 06/21/2023 CBC/C OMPLE TE BLD COUNT W/DIF F eosinophils 1.5 % 1.0-7. 0 Not Available [facility] (Lab) [address] [place], [address], 06/21/2023 20:39:58 06/21/19 24 06/21/2023 CBC/C OMPLE TE BLD COUNT W/DIF F basophils 0.8 % 0.0-2. 0 Not Available [facility] (Lab) [address] [place], [address], 06/21/2023 20:39:58 06/21/19 24 06/21/2023 CBC/C OMPLE TE BLD COUNT W/DIF F immature granulocytes 0.5 % 0.00-0 .50 Not Available [facility] (Lab) [address] [place], [address], 06/21/2023 20:39:58 06/21/19 24 06/21/2023 CBC/C OMPLE TE BLD COUNT W/DIF F neutrophils, absolute count 7.29 x10'3 /uL 1.5-8. 0 Not Available [facility] (Lab) [address] [place], [address], 06/21/2023 20:39:58 06/21/19 24 06/21/2023 CBC/C OMPLE TE BLD COUNT W/DIF F lymphocytes, absolute count 2.79 x10'3 /uL 1.07-3 .43 Not Available [facility] (Lab) [address] [place], [address], 06/21/2023 20:39:58 06/21/19 24 06/21/2023 CBC/C OMPLE TE BLD COUNT W/DIF F monocytes, absolute count 0.65 x10'3 /uL 0.29-0 .99 Not Available [facility] (Lab) [address] [place], [address], 06/21/2023 20:39:58 06/21/19 24 06/21/2023 CBC/C OMPLE TE BLD COUNT W/DIF F eosinophils, absolute count 0.17 x10'3 /uL 0.02-0 .53 Not Available [facility] (Lab) [address] [place], [address], 06/21/2023 20:39:58 06/21/19 24 06/21/2023 CBC/C OMPLE TE BLD COUNT W/DIF F basophils, absolute count 0.09 x10'3 /uL 0.01-0 .08 high Not Available [facility] (Lab) [address] [place], [address], 06/21/2023 20:39:58 06/21/19 24 06/21/2023 CBC/C OMPLE TE BLD COUNT W/DIF F immature granulocytes ,absolute 0.05 x10'3 /uL 0.00-0 .05 Not Available [facility] (Lab) [address] [place], [address], 06/21/2023 20:39:58 06/21/19 24 06/21/2023 CBC/C OMPLE TE BLD COUNT W/DIF F nucleated red blood cells 0.0 % -0 Not Available [facility] (Lab) [address] [place], [address], 06/21/2023 20:39:58 06/21/19 24 06/21/2023 CBC/C OMPLE TE BLD COUNT W/DIF F NRBC# 0.00 x10'3 /uL Not Available [facility] (Lab) [address] [place], [address], 06/21/2023 20:39:58 06/21/19 24 06/21/2023 MAGNE SIUM magnesium 2.2 mg/dL 1.6-2. 3 Not Available [facility] (Lab) [address] [place], [address], 06/21/2023 20:41:41 06/21/19 24 06/21/2023 PARAT HY.HO RM(PT H)INT ACT-W /O CA intact parathyroid hormone 33.9 pg/mL 24.0-7 8.0 Pleas e note new refer ence range effec tive 06/18 . Not Available [facility] (Lab) [address] [place], [address], 06/21/2023 21:32:46 06/21/19 24 06/21/2023 VITAM IN B12 (SARI AVERY ) vb12 366 pg/mL 239-93 1 Not Available [facility] (Lab) [address] [place], [address], 06/21/2023 23:52:44 06/21/19 24 06/21/2023 FOLAT E, SERUM /PLAS MA folate >20.0 NG/mL 2.76-2 0.0 Not Available [facility] (Lab) [address] [place], [address], 06/21/2023 23:52:46 06/21/19 24 06/21/2023 VITAM IN D 25-HY DROXY vd25oh 42.0 NG/mL 30-100 Vitam in D Statu s: Defic ient: <20 ng/mL Insuf ficie nt: 20-29 ng/mL Suffi cient : 30-10 0 ng/mL Not Available [facility] (Lab) [address] [place], [address], 06/21/2023 21:36:12 06/21/19 24 06/21/2023 TSH thyroid-stim ulating hormone 1.810 uIU/m L 0.465- 4.680 Not Available [facility] (Lab) [address] [place], [address], 06/21/2023 22:21:45 06/21/19 24 06/23/2023 CALCI UM, IONIZ ED/LC calcium, ionized, serum TNP mg/dL Test not perfo rmed. Speci men is hemol yzed. Unabl e to obtai n valid resul ts. Conta ct: Fabio Saez 2.1.2 4 [facility] [address] [facility], [place] [address] Lab Direc tor: Colt morel PhD, Phone : [phone] Not Available [facility] (Lab) [address] [place], [address], 06/23/2023 13:09:57 09/20/19 24 09/20/2023 CBC/C OMPLE TE BLD COUNT W/DIF F white blood cells 14.5 x10'3 /uL 4.2-10 .8 high Not Available [facility] (Lab) [address] [place], [address], 09/20/2023 20:33:31 09/20/19 24 09/20/2023 CBC/C OMPLE TE BLD COUNT W/DIF F red blood cells 5.21 x10'6 /uL 3.80-5 .20 high Not Available [facility] (Lab) [address] [place], [address], 09/20/2023 20:33:31 09/20/19 24 09/20/2023 CBC/C OMPLE TE BLD COUNT W/DIF F hemoglobin 17.3 g/dL 12.0-1 5.6 high Not Available [facility] (Lab) [address] [place], [address], 09/20/2023 20:33:31 09/20/19 24 09/20/2023 CBC/C OMPLE TE BLD COUNT W/DIF F hematocrit 48.3 % 35.7-4 5.7 high Not Available [facility] (Lab) [address] [place], [address], 09/20/2023 20:33:31 09/20/19 24 09/20/2023 CBC/C OMPLE TE BLD COUNT W/DIF F mean red cell volume 92.7 fL 82.0-9 9.0 Not Available [facility] (Lab) [address] [place], [address], 09/20/2023 20:33:31 09/20/19 24 09/20/2023 CBC/C OMPLE TE BLD COUNT W/DIF F mean red cell hemoglobin 33.2 pg 27.0-3 3.0 high Not Available [facility] (Lab) [address] [place], [address], 09/20/2023 20:33:31 09/20/19 24 09/20/2023 CBC/C OMPLE TE BLD COUNT W/DIF F mean RBC HGB concentratio n 35.8 g/dL 31.0-3 6.0 Not Available [facility] (Lab) [address] [place], [address], 09/20/2023 20:33:31 09/20/19 24 09/20/2023 CBC/C OMPLE TE BLD COUNT W/DIF F red cell distribution width 12.1 % 11.8-1 5.5 Not Available [facility] (Lab) [address] [place], [address], 09/20/2023 20:33:31 09/20/19 24 09/20/2023 CBC/C OMPLE TE BLD COUNT W/DIF F platelets 256 x10'3 /uL 150-40 0 Not Available [facility] (Lab) [address] [place], [address], 09/20/2023 20:33:31 09/20/19 24 09/20/2023 CBC/C OMPLE TE BLD COUNT W/DIF F mean platelet volume 11.8 fL 9.0-12 .4 Not Available [facility] (Lab) [address] [place], [address], 09/20/2023 20:33:31 09/20/19 24 09/20/2023 CBC/C OMPLE TE BLD COUNT W/DIF F neutrophils 72.8 % 39.0-7 2.0 high Not Available [facility] (Lab) [address] [place], [address], 09/20/2023 20:33:31 09/20/19 24 09/20/2023 CBC/C OMPLE TE BLD COUNT W/DIF F lymphocytes 21.1 % 16.0-4 7.0 Not Available [facility] (Lab) [address] [place], [address], 09/20/2023 20:33:31 09/20/19 24 09/20/2023 CBC/C OMPLE TE BLD COUNT W/DIF F monocytes 4.8 % 5.0-12 .0 low Not Available [facility] (Lab) [address] [place], [address], 09/20/2023 20:33:31 09/20/19 24 09/20/2023 CBC/C OMPLE TE BLD COUNT W/DIF F eosinophils 0.7 % 1.0-7. 0 low Not Available [facility] (Lab) [address] [place], [address], 09/20/2023 20:33:31 09/20/19 24 09/20/2023 CBC/C OMPLE TE BLD COUNT W/DIF F basophils 0.3 % 0.0-2. 0 Not Available [facility] (Lab) [address] [place], [address], 09/20/2023 20:33:31 09/20/19 24 09/20/2023 CBC/C OMPLE TE BLD COUNT W/DIF F immature granulocytes 0.3 % 0.00-0 .50 Not Available [facility] (Lab) [address] [place], [address], 09/20/2023 20:33:31 09/20/19 24 09/20/2023 CBC/C OMPLE TE BLD COUNT W/DIF F neutrophils, absolute count 10.55 x10'3 /uL 1.5-8. 0 high Not Available [facility] (Lab) [address] [place], [address], 09/20/2023 20:33:31 09/20/19 24 09/20/2023 CBC/C OMPLE TE BLD COUNT W/DIF F lymphocytes, absolute count 3.07 x10'3 /uL 1.07-3 .43 Not Available [facility] (Lab) [address] [place], [address], 09/20/2023 20:33:31 09/20/19 24 09/20/2023 CBC/C OMPLE TE BLD COUNT W/DIF F monocytes, absolute count 0.70 x10'3 /uL 0.29-0 .99 Not Available [facility] (Lab) [address] [place], [address], 09/20/2023 20:33:31 09/20/19 24 09/20/2023 CBC/C OMPLE TE BLD COUNT W/DIF F eosinophils, absolute count 0.10 x10'3 /uL 0.02-0 .53 Not Available [facility] (Lab) [address] [place], [address], 09/20/2023 20:33:31 09/20/19 24 09/20/2023 CBC/C OMPLE TE BLD COUNT W/DIF F basophils, absolute count 0.05 x10'3 /uL 0.01-0 .08 Not Available [facility] (Lab) [address] [place], [address], 09/20/2023 20:33:31 09/20/19 24 09/20/2023 CBC/C OMPLE TE BLD COUNT W/DIF F immature granulocytes ,absolute 0.05 x10'3 /uL 0.00-0 .05 Not Available [facility] (Lab) [address] [place], [address], 09/20/2023 20:33:31 09/20/19 24 09/20/2023 CBC/C OMPLE TE BLD COUNT W/DIF F nucleated red blood cells 0.0 % -0 Not Available [facility] (Lab) [address] [place], [address], 09/20/2023 20:33:31 09/20/19 24 09/20/2023 CBC/C OMPLE TE BLD COUNT W/DIF F NRBC# 0.00 x10'3 /uL Not Available [facility] (Lab) [address] [place], [address], 09/20/2023 20:33:31 09/20/19 24 09/22/2023 CALCI UM, IONIZ ED/LC calcium, ionized, serum 5.0 mg/dL 4.5-5. 6 [place]: [place] [address] Lab Direc tor: Colt morel PhD, Phone : [phone] Not Available [facility] (Lab) [address] [place], [address], 09/22/2023 13:10:47 11/04/19 24 11/04/2023 CBC/C OMPLE TE BLD COUNT W/DIF F white blood cells 12.9 x10'3 /uL 4.2-10 .8 high Not Available [facility] (Lab) [address] [place], [address], 11/04/2023 20:37:43 11/04/19 24 11/04/2023 CBC/C OMPLE TE BLD COUNT W/DIF F red blood cells 5.08 x10'6 /uL 3.80-5 .20 Not Available [facility] (Lab) [address] [place], [address], 11/04/2023 20:37:43 11/04/19 24 11/04/2023 CBC/C OMPLE TE BLD COUNT W/DIF F hemoglobin 16.5 g/dL 12.0-1 5.6 high Not Available [facility] (Lab) [address] [place], [address], 11/04/2023 20:37:43 11/04/19 24 11/04/2023 CBC/C OMPLE TE BLD COUNT W/DIF F hematocrit 46.3 % 35.7-4 5.7 high Not Available [facility] (Lab) [address] [place], [address], 11/04/2023 20:37:43 11/04/19 24 11/04/2023 CBC/C OMPLE TE BLD COUNT W/DIF F mean red cell volume 91.1 fL 82.0-9 9.0 Not Available [facility] (Lab) [address] [place], [address], 11/04/2023 20:37:43 11/04/19 24 11/04/2023 CBC/C OMPLE TE BLD COUNT W/DIF F mean red cell hemoglobin 32.5 pg 27.0-3 3.0 Not Available [facility] (Lab) [address] [place], [address], 11/04/2023 20:37:43 11/04/19 24 11/04/2023 CBC/C OMPLE TE BLD COUNT W/DIF F mean RBC HGB concentratio n 35.6 g/dL 31.0-3 6.0 Not Available [facility] (Lab) [address] [place], [address], 11/04/2023 20:37:43 11/04/19 24 11/04/2023 CBC/C OMPLE TE BLD COUNT W/DIF F red cell distribution width 11.7 % 11.8-1 5.5 low Not Available [facility] (Lab) [address] [facility] [place] [place], [address], 11/04/2023 20:37:43 11/04/19 24 11/04/2023 CBC/C OMPLE TE BLD COUNT W/DIF F platelets 272 x10'3 /uL 150-40 0 Not Available [facility] (Lab) [address] [place], [address], 11/04/2023 20:37:43 11/04/19 24 11/04/2023 CBC/C OMPLE TE BLD COUNT W/DIF F mean platelet volume 11.0 fL 9.0-12 .4 Not Available [facility] (Lab) [address] [place], [address], 11/04/2023 20:37:43 11/04/19 24 11/04/2023 CBC/C OMPLE TE BLD COUNT W/DIF F neutrophils 67.8 % 39.0-7 2.0 Not Available [facility] (Lab) [address] [place], [address], 11/04/2023 20:37:43 11/04/19 24 11/04/2023 CBC/C OMPLE TE BLD COUNT W/DIF F lymphocytes 23.2 % 16.0-4 7.0 Not Available [facility] (Lab) [address] [place], [address], 11/04/2023 20:37:43 11/04/19 24 11/04/2023 CBC/C OMPLE TE BLD COUNT W/DIF F monocytes 6.6 % 5.0-12 .0 Not Available [facility] (Lab) [address] [facility] [place] [place], [address], 11/04/2023 20:37:43 11/04/19 24 11/04/2023 CBC/C OMPLE TE BLD COUNT W/DIF F eosinophils 1.3 % 1.0-7. 0 Not Available [facility] (Lab) [address] [place], [address], 11/04/2023 20:37:43 11/04/19 24 11/04/2023 CBC/C OMPLE TE BLD COUNT W/DIF F basophils 0.7 % 0.0-2. 0 Not Available [facility] (Lab) [address] [place], [address], 11/04/2023 20:37:43 11/04/19 24 11/04/2023 CBC/C OMPLE TE BLD COUNT W/DIF F immature granulocytes 0.4 % 0.00-0 .50 Not Available [facility] (Lab) [address] [place], [address], 11/04/2023 20:37:43 11/04/19 24 11/04/2023 CBC/C OMPLE TE BLD COUNT W/DIF F neutrophils, absolute count 8.76 x10'3 /uL 1.5-8. 0 high Not Available [facility] (Lab) [address] [place], [address], 11/04/2023 20:37:43 11/04/19 24 11/04/2023 CBC/C OMPLE TE BLD COUNT W/DIF F lymphocytes, absolute count 3.00 x10'3 /uL 1.07-3 .43 Not Available [facility] (Lab) [address] [place], [address], 11/04/2023 20:37:43 11/04/19 24 11/04/2023 CBC/C OMPLE TE BLD COUNT W/DIF F monocytes, absolute count 0.85 x10'3 /uL 0.29-0 .99 Not Available [facility] (Lab) [address] [place], [address], 11/04/2023 20:37:43 11/04/19 24 11/04/2023 CBC/C OMPLE TE BLD COUNT W/DIF F eosinophils, absolute count 0.17 x10'3 /uL 0.02-0 .53 Not Available [facility] (Lab) [address] [place], [address], 11/04/2023 20:37:43 11/04/19 24 11/04/2023 CBC/C OMPLE TE BLD COUNT W/DIF F basophils, absolute count 0.09 x10'3 /uL 0.01-0 .08 high Not Available [facility] (Lab) [address] [place], [address], 11/04/2023 20:37:43 11/04/19 24 11/04/2023 CBC/C OMPLE TE BLD COUNT W/DIF F immature granulocytes ,absolute 0.05 x10'3 /uL 0.00-0 .05 Not Available [facility] (Lab) [address] [place], [address], 11/04/2023 20:37:43 11/04/19 24 11/04/2023 CBC/C OMPLE TE BLD COUNT W/DIF F nucleated red blood cells 0.0 % -0 Not Available [facility] (Lab) [address] [place], [address], 11/04/2023 20:37:43 11/04/19 24 11/04/2023 CBC/C OMPLE TE BLD COUNT W/DIF F NRBC# 0.00 x10'3 /uL Not Available [facility] (Lab) [address] [place], [address], 11/04/2023 20:37:43 05/19/20 24 05/18/2024 MAMMO , scree maru, digit al, bilat eral No observ ation record ed. [email or web address] [facility] [address], [place], [address], 05/28/2024 17:58:17 Result Notes None recorded. Problems Name Problem SNOMED Code Status Onset Date Resolution Date Notes Provider Name and Address Organization Details Recorded Time Nellylgia 57691365 Active Not Available [facility] 3 07:35:36 Backache 866649587 Active Not Available [facility] 3 07:35:36 Abdominal pain 90483091 Active Not Available [facility] 3 07:35:36 Mixed anxiety and depressive disorder 884669134 Active 2020 Not Available [facility] 3 07:35:36 Gastroesophag eal reflux disease 627661014 Active Not Available [facility] 3 07:35:36 Gastroenterit is 68356919 Active Not Available [facility] 3 07:35:37 Low back pain 940712158 Active Not Available [facility] 3 07:35:37 Adnexal tenderness 270864438 Active Not Available [facility] 3 07:35:37 Chest pain 66668969 Active Not Available [facility] 3 07:35:37 Blood in urine 74509087 Active Not Available [facility] 3 07:35:37 Depressive disorder 08440478 Active Not Available [facility] 3 07:35:37 Chronic pain syndrome 423076156 Active Not Available [facility] 3 07:35:37 Vomiting 912962343 Active Not Available [facility] 3 07:35:37 Chronic headache disorder 440179298 Active 2020 Not Available [facility] 3 07:35:37 Viral syndrome 582137042 Active Not Available [facility] 3 07:35:38 Anxiety 54294097 Active Not Available [facility] 3 07:35:38 Hip pain 27901700 Active Not Available [facility] 3 07:35:38 Chronic fatigue syndrome 30567852 Active Not Available [facility] 3 07:35:38 Upper respiratory infection 80951840 Active Not Available [facility] 3 07:35:38 Rheumatoid arthritis 47921090 Active 2020 Not Available [facility] 3 07:35:38 Neck pain 03340169 Active Not Available [facility] 3 07:35:38 COVID-19 337706884 Active 2020 Not Available [facility] 3 07:35:39 Fatigue 37696894 Active Not Available [facility] 3 07:35:39 Increased frequency of urination 356496267 Active 2022 LUCIAN Kendall [address], [place], [address] , [facility] 3 11:13:14 Tremor 58609372 Active 2022 LUCIAN Kendall [address], [place], [address] , [facility] 3 11:18:58 Urinary incontinence 149670520 Active 2022 LUCIAN Kendall [address], [place], [address] , [facility] 3 11:21:52 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 [employer] 3 11:17:28 Recurrent conversion disorder 66632402 Active 2022 Sharita De La Paz MD [address], [address], [address] , [employer] [facility] [employer] 3 11:29:45 Cobalamin deficiency 932226987 Active 2022 Sharita De La Paz MD [address] [facility], [address], [address] , [employer] [facility] [employer] 3 11:30:32 Vitamin D deficiency 28707833 Active 2022 Sharita De La Paz MD [address], [address], [address] , [employer] [facility] [employer] 3 11:31:25 Hypercalcemia 92625063 Active 2022 Sharita De La Paz MD [address], [address], [address] , [employer] [facility] [employer] 3 07:57:15 Neuropathy 743535337 Active 2023 Sharita De La Paz MD [address], [address], [address] , [employer] [facility] [employer] 4 11:29:36 Leukocytosis 683156871 Active 2023 Sharita De La Paz MD [address], [address] , [employer] [facility] [employer] [facility] 4 11:20:04 Insomnia 564685163 Active 2023 MANE Corral [address], [address] , [facility] [employer] [facility] [employer] 4 11:25:06 Problem Notes None recorded. 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 Medical Equipment None Reported. Allergies No known drug allergies Medications Name Sig Start Date Stop Date Status Note LastModified by Organization Details LastModified Time cyclobenza annamaria 10 mg tablet active Not Available Not Available No t Available hydrocodon e 7.5 mg-ibuprof en 200 mg tablet active Not Available Not Available Not Available nabumetone 750 mg tablet 01/23 completed Not Available Not Available Not Available trazodone 50 mg tablet Take 1 tablet every day by oral route. active Not Available Not Available No t Available polyethyle ne glycol 3350 17 gram oral powder packet 10/17 completed Not Available Not Available Not Available oxybutynin chloride ER 10 mg tablet,ext ended release 24 hr TAKE 1 TABLET BY MOUTH EVERY DAY active Not Available Not Available No t Available ibuprofen 800 mg tablet TAKE 1 TABLET BY MOUTH EVERY 6 TO 8 HOURS NEEDED FOR PAIN TAKE WITH FOOD 03/22 completed Not Available Not Available Not Available Lidocaine Viscous 2 % mucosal solution Take 15 mL every 3 hours by oral route as needed. 03/22 completed Not Available Not Available Not Available benzonatat e 200 mg capsule TAKE 1 CAPSULE BY MOUTH THREE TIMES A DAY NEEDED FOR 10 DAYS 03/22 completed Not Available Not Available Not Available hydrocodon e 5 mg-acetami nophen 325 mg tablet TAKE 1 TABLET EVERY 6 HOURS NEEDED active Not Available Not Available No t Available ondansetro n HCl 8 mg tablet Take 1 tablet every 8 hours by oral route as needed. active Not Available Not Available No t Available meloxicam 15 mg tablet Take 1 tablet(s ) every day by oral route. active Not Available Not Available No t Available polysaccha ride iron complex 150 mg iron capsule TAKE 1 CAPSULE BY MOUTH EVERY DAY 03/22 completed Not Available Not Available Not Available prednisone 20 mg tablet TAKE 3 TABLETS BY MOUTH ONCE DAILY X 3 DAYS, 2 TABS X 3 DAYS, 1 TAB X 3 DAYS, THEN 1/2 TAB X 3 DAYS 08/24 completed Not Available Not Available Not Available clonazepam 0.5 mg tablet TAKE 1 TABLET BY MOUTH TWICE A DAY NEEDED 06/29 completed Not Available Not Available Not Available propranolo l ER 60 mg capsule,24 hr,extende d release 1 po qday 03/22 completed Not Available Not Available Not Available sertraline 100 mg tablet 1 po qday active Not Available Not Available No t Available sulfasalaz ine 500 mg tablet,del ayed release bid 08/24 completed Not Available Not Available Not Available Zithromax Z-Giancarlo 250 mg tablet TAKE 2 TABLETS (500 MG) BY ORAL ROUTE ONCE DAILY FOR 1 DAY THEN 1 TABLET (250 MG) BY ORAL ROUTE ONCE DAILY FOR 4 DAYS 03/22 completed Not Available Not Available Not Available topiramate 25 mg tablet 08/24 completed Not Available Not Available Not Available acetaminop hen 300 mg-codeine 30 mg tablet Take 1 tablet every 6 hours by oral route. active Not Available Not Available No t Available tramadol 50 mg tablet Take 1 tablet every 6 hours by oral route as needed for 5 days. 08/24 completed Not Available Not Available Not Available amitriptyl ine 50 mg tablet TAKE 1 TABLET(S ) EVERY DAY BY MOUTH. 07/04 completed Not Available Not Available Not Available acyclovir 800 mg tablet TAKE 1 TABLET BY MOUTH 5 TIMES DAILY FOR 7 DAYS active Not Available Not Available No t Available nortriptyl ine 25 mg capsule Take 1-2 capsule( s) po qhs prn 03/04 completed Not Available Not Available Not Available meloxicam 7.5 mg tablet active Not Available Not Available Not Available oxycodone- acetaminop hen 5 mg-325 mg tablet 05/02 completed Not Available Not Available Not Available amoxicilli n 875 mg tablet Take 1 tablet every 12 hours by oral route for 10 days. active Not Available Not Available No t Available amitriptyl ine 25 mg tablet Take 1 tablet every day by oral route. active Not Available Not Available No t Available prednisolo ne acetate 1 % eye drops,susp ension 07/04 completed Not Available Not Available Not Available lorazepam 0.5 mg tablet Take 1-2 tabs prn TID for tremors/ tics 01/20 completed Not Available Not Available Not Available dicyclomin e 20 mg tablet 10/17 completed Not Available Not Available Not Available meclizine 25 mg tablet TAKE 1 (ONE) TABLET BY MOUTH 2 TIMES DAILY 03/22 completed Not Available Not Available Not Available baclofen 10 mg tablet TAKE 1 TABLET BY MOUTH EVERY DAY FOR 7 DAYS THEN INCREASE TO TWICE DAILY 07/04 completed Not Available Not Available Not Available oseltamivi r 75 mg capsule Take 1 capsule twice a day by oral route for 5 days. active Not Available Not Available No t Available promethazi ne 25 mg tablet Take 1 tablet every 4 hours by oral route as needed. active Not Available Not Available No t Available fluoxetine 10 mg capsule active Not Available Not Available Not Available gabapentin 300 mg capsule 1 capsule by mouth 3 times daily 08/24 completed Not Available Not Available Not Available omeprazole 20 mg capsule,de layed release TAKE ONE CAPSULE BY MOUTH EVERY MORNING 10/17 completed Not Available Not Available Not Available diclofenac sodium 75 mg tablet,del ayed release active Not Available Not Available Not Available montelukas t 10 mg tablet TAKE 1 TABLET BY MOUTH EVERY DAY 03/23 completed Not Available Not Available Not Available hydrocodon e 5 mg-acetami nophen 500 mg tablet active Not Available Not Available No t Available codeine 10 mg-guaifen esin 100 mg/5 mL oral liquid Take 10 mL every 4 hours by oral route as needed. active Not Available Not Available No t Available bisacodyl 5 mg tablet,del ayed release TAKE 2 TABLETS BY MOUTH ONCE DAILY 10/17 completed Not Available Not Available Not Available zolpidem 5 mg tablet Take 1 tablet every day by oral route at bedtime. active Not Available Not Available No t Available gabapentin 100 mg capsule TAKE 1 (ONE) CAPSULE BY MOUTH 3 TIMES DAILY 05/18 completed Not Available Not Available Not Available lorazepam 1 mg tablet Take one tab po QAM, Q noon, & 2 tabs QHS active Not Available Not Available No t Available hydroxychl oroquine 200 mg tablet Take 1 tablet twice a day by oral route for 90 days. 03/23 completed Not Available Not Available Not Available albuterol sulfate HFA 90 mcg/actuat ion aerosol inhaler Inhale 2 puffs every 4 hours by inhalati on route as needed. active Not Available Not Available No t Available ondansetro n 4 mg disintegra ting tablet DISSOLVE 1-2 TABLETS ON THE TONGUE 3 TIMES DAILY NEEDED FOR NAUSEA 03/22 completed Not Available Not Available Not Available topiramate 100 mg tablet Take 1 tablet twice a day by oral route for 90 days. 08/24 completed Not Available Not Available Not Available clotrimazo le 1 % topical cream APPLY TO THE AFFECTED AND SURROUND ING AREAS OF SKIN BY TOPICAL ROUTE 2 TIMES PER DAY IN THE MORNING AND EVENING active Not Available Not Available No t Available sertraline 50 mg tablet 1 po qday x 2 weeks then increase to 2 po qday with food active Not Available Not Available No t Available medroxypro gesterone 150 mg/mL intramuscu lar suspension 08/06 completed Not Available Not Available Not Available dicyclomin e 10 mg capsule Take 1 capsule 3 times a day by oral route as needed for 7 days. active Not Available Not Available No t Available diazepam 5 mg tablet TAKE 1 TABLET BY MOUTH THREE TIMES DAILY NEEDED 03/22 completed Not Available Not Available Not Available amoxicilli n 875 mg-potassi um clavulanat e 125 mg tablet Take 1 tablet every 12 hours by oral route. 08/24 completed Not Available Not Available Not Available nabumetone 500 mg tablet TAKE 2 TABLETS BY MOUTH 2 TIMES DAILY. 07/04 completed Not Available Not Available Not Available Lexapro 10 mg tablet Take 1 tablet every day by oral route as directed . 2012 active Not Available Not Available Not Avai lable Advil Allergy Sinus 2 mg-30 mg-200 mg tablet TAKE 1 TABLET BY MOUTH EVERY 4 TO 6 HOURS *MAX 6 TABS/24 HRS* 03/23 completed Not Available Not Available Not Available aripiprazo le 5 mg tablet TAKE 1 TABLET BY MOUTH EVERY DAY FOR 30 DAYS 03/22 completed Not Available Not Available Not Available rosuvastat in 20 mg tablet TAKE 1 TABLET BY MOUTH EVERY DAY 08/24 completed Not Available Not Available Not Available bupropion HCl XL 150 mg 24 hr tablet, extended release TAKE 1 TABLET BY MOUTH EVERY DAY 04/26 completed Not Available Not Available Not Available topiramate 50 mg tablet Take 1 tablet twice a day by oral route for 30 days. 08/24 completed Not Available Not Available Not Available Buproban 150 mg tablet,ext ended release active Not Available Not Available Not Available nitrofuran toin monohydrat e/macrocry stals 100 mg capsule TAKE 1 CAPSULE BY MOUTH EVERY 12 HOURS FOR 7 DAYS 03/22 completed Not Available Not Available Not Available duloxetine 60 mg capsule,de layed release Take 1 capsule every day by oral route. active Not Available Not Available No t Available Vesicare 5 mg tablet 07/04 completed Not Available Not Available Not Available Enablex 15 mg tablet,ext ended release Take 1 tablet every day by oral route as directed . active Not Available Not Available No t Available aripiprazo le 2 mg tablet TAKE 1 TABLET BY MOUTH EVERY DAY 08/24 completed dose change Not Available Not Available Not Available omeprazole 20 mg tablet,del ayed release Take 1 tablet every day by oral route in the morning. 12/30 completed Not Available Not Available Not Available desvenlafa xine succinate ER 50 mg tablet,ext ended release 24 hr TAKE 1 TABLET BY MOUTH EVERY DAY 05/18 completed Not Available Not Available Not Available desvenlafa xine succinate ER 100 mg tablet,ext ended release 24 hr TAKE 1 TABLET BY MOUTH EVERY DAY 03/22 completed Not Available Not Available Not Available quetiapine ER 50 mg tablet,ext ended release 24 hr 1 po qhs x 2 weeks then increase to 2 po qhs active Not Available Not Available No t Available desvenlafa xine ER 50 mg tablet,ext ended release 24 hr 10/23 completed Not Available Not Available Not Available desvenlafa xine ER 100 mg tablet,ext ended release 24 hr TAKE 1 TABLET BY MOUTH EVERY DAY 03/22 completed Not Available Not Available Not Available Afluria 7762-1647( PF) 45 mcg (15 mcg x 3)/0.5 mL intramuscu lar syringe TO BE ADMINIST ERED BY [facility] ST FOR IMMUNIZA TION active Not Available Not Available No t Available Trintellix 10 mg tablet Take 1 tablet every day by oral route. 12/30 completed 2 tabs daily Not Available Not Available Not Available Trintellix 20 mg tablet TAKE 1 TABLET BY MOUTH ONCE A DAY 04/26 completed Not Available Not Available Not Available Flucelvax Quad [id number] (PF) 60 mcg (15 mcg x 4)/0.5 mL IM syringe 05/18 completed Not Available Not Available Not Available cyanocobal escamilla (vitamin B-12) 1,000 mcg capsule TAKE 1 CAPSULE BY MOUTH EVERY DAY IN THE MORNING 03/22 completed Not Available Not Available Not Available Flucelvax Quad [id number] (PF) 60 mcg (15 mcg x 4)/0.5 mL IM syringe TO BE ADMINIST ERED BY PHARMACI ST FOR IMMUNIZA TION active Not Available Not Available No t Available Emgality Pen 120 mg/mL subcutaneo us pen injector Inject 120 mg every 4 weeks by subcutan eous route. 03/22 completed Not Available Not Available Not Available Emgality 300 mg/3 mL (100 mg/mL x 3) subcutaneo us syringe INJECT 300 MG UNDER THE SKIN ONCE MONTHLY 03/23 completed Not Available Not Available Not Available Vitals Date Recorded Body height Provider Name an d Address Organization Details Last Updated DateTime 03/22/2023 167.64 cm Tory Whitmore CNA [facility] [employer] [facility] 03/22/2023 10:56:18 Date Recorded Body temperature Provider Name a nd Address Organization Details Last Updated DateTime 03/22/2023 97.3 [degF] Tory Whitmore CNA [place] [employer] [facility] [employer] [facility] 03/22/2023 11:01:23 Date Recorded Heart rate Provider Name an d Address Organization Details Last Updated DateTime 03/22/2023 113 /min Tory Whitmore CNA [place] [employer] [facility] [employer] [facility] 03/22/2023 11:01:38 Date Recorded Oxygen saturation Oxygen saturation in Arterial blood by Pulse oximetry Provider Name and Address Organization Details Last Updated DateTime 03/22/2023 97 % 97 % Tory Whitmore CNA [place] [employer] [facility] [employer] [facility] 03/22/2023 11:03:07 Date Recorded Body height Provider Name an d Address Organization Details Last Updated DateTime 06/21/2023 167.64 cm MIRZA Mark Zay [employer] [facility] 06/21/2023 10:56:26 Date Recorded Body mass index (BMI) Body weight Provider Name and Address Organization Details Last Updated DateTime 06/21/2023 26.8 kg/m2 35550.33 g MIRZA Mark Zay [place] [employer] [facility] 06/21/2023 11:02:06 Date Recorded Body temperature Provider Name a nd Address Organization Details Last Updated DateTime 06/21/2023 97.4 [degF] MIRZA Mark Zay [employer] [facility] 06/21/2023 11:03:11 Date Recorded Heart rate Provider Name an d Address Organization Details Last Updated DateTime 06/21/2023 83 /min MIRZA Mark Zay [employer] [facility] 06/21/2023 11:03:13 Date Recorded Oxygen saturation Oxygen saturation in Arterial blood by Pulse oximetry Provider Name and Address Organization Details Last Updated DateTime 06/21/2023 97 % 97 % MIRZA Mark Zay [employer] [facility] 06/21/2023 11:03:17 Date Recorded Body height Provider Name an d Address Organization Details Last Updated DateTime 09/20/2023 167.64 cm MIRZA Mark Zay [employer] [facility] 09/20/2023 11:11:41 Date Recorded Body mass index (BMI) Body weight Provider Name and Address Organization Details Last Updated DateTime 09/20/2023 25.8 kg/m2 76881.78 g MIRZA Mark Zay [employer] [facility] 09/20/2023 11:12:55 Date Recorded Body temperature Provider Name a nd Address Organization Details Last Updated DateTime 09/20/2023 97.9 [degF] MIRZA Mark Zay [employer] [facility] 09/20/2023 11:13:56 Date Recorded Oxygen saturation Oxygen saturation in Arterial blood by Pulse oximetry Provider Name and Address Organization Details Last Updated DateTime 09/20/2023 97 % 97 % MIRZA Mark Zay [employer] [facility] 09/20/2023 11:14:09 Date Recorded Heart rate Provider Name an d Address Organization Details Last Updated DateTime 09/20/2023 68 /min MIRZA Mark [facility] [employer] [facility] 09/20/2023 11:14:05 Date Recorded Body height Provider Name an d Address Organization Details Last Updated DateTime 03/23/2024 167.64 cm MIRZA Rivera [facility] [employer] [facility] 03/23/2024 10:56:41 Date Recorded Body mass index (BMI) Body weight Provider Name and Address Organization Details Last Updated DateTime 03/23/2024 24.7 kg/m2 07657.63 g Senia Gallo RN [facility] [place] [facility] 03/23/2024 11:03:07 Date Recorded Body temperature Provider Name a nd Address Organization Details Last Updated DateTime 03/23/2024 96.7 [degF] MIRZA Rivera [facility] [employer] [facility] 03/23/2024 11:04:30 Date Recorded Heart rate Provider Name an d Address Organization Details Last Updated DateTime 03/23/2024 78 /min [facility] [employer] [facility] 03/23/2024 11:04:38 Date Recorded Oxygen saturation Oxygen saturation in Arterial blood by Pulse oximetry Provider Name and Address Organization Details Last Updated DateTime 03/23/2024 98 % 98 % Senia Gallo RN [facility] [employer] 03/23/2024 11:04:39 Date Recorded Systolic blood pressure Diastolic blood pressure Provider Name and Address Organization Details Last Updated DateTime 03/22/2023 138 mm[Hg] 86 mm[Hg] Tory Whitmore CNA [place] [employer] [facility] [employer] 03/22/2023 11:03:14 Date Recorded Systolic blood pressure Diastolic blood pressure Provider Name and Address Organization Details Last Updated DateTime 06/21/2023 138 mm[Hg] 84 mm[Hg] MIRZA Mark [facility] [place] [facility] 06/21/2023 11:03:15 Date Recorded Systolic blood pressure Diastolic blood pressure Provider Name and Address Organization Details Last Updated DateTime 09/20/2023 126 mm[Hg] 78 mm[Hg] MIRZA Mark [facility] [place] [facility] 09/20/2023 11:13:58 Date Recorded Systolic blood pressure Diastolic blood pressure Provider Name and Address Organization Details Last Updated DateTime 03/23/2024 118 mm[Hg] 82 mm[Hg] Senia Gallo RN [facility] [place] [facility] 03/23/2024 11:05:26 Social History Question Answer Notes LastModified by Organizat ion Details LastModified Time Tobacco Smoking Status Former Smoker Not Available [facility] 07/21/2022 07:28:29 Do You Have An Advance Directive? No [id number] Information not available 07/21/2022 What Is Your Level Of Alcohol Consumption? None [id number] Information not available 07/21/2022 Do You Wear A Helmet When Biking? Yes MIGRATION.[id number] Information not available 07/21/2022 What Is Your Level Of Caffeine Consumption? Moderate MIGRATION.[id number] 1525 Information not available 07/21/2022 How Much Tobacco Do You Chew? None MIGRATION.[id number] Information not available 07/21/2022 In The 14 Days Before Symptom Onset, Have You Had Close Contact With A Laboratory-confir med COVID-19 While That Case Was Ill? No MIGRATION.[id number] Information not available 07/21/2022 In The 14 Days Before Symptom Onset, Have You Had Close Contact With A Person Who Is Under Investigation For COVID-19 While That Person Was Ill? No MIGRATION.[id number] 0942 Information not available 07/21/2022 What Type Of Diet Are You Following? REGULAR MIGRATION.[id number] Information not available 07/21/2022 Which Illicit Or Recreational Drugs Have You Used? None MIGRATION.[id number] 9149 Information not available 07/21/2022 Do You Or Have You Ever Used E-cigarettes Or Vape? Never Used Electronic Cigarettes MIGRATION.209493 7396 Information not available 07/21/2022 What Is The Highest Grade Or Level Of School You Have Completed Or The Highest Degree You Have Received? [id number] MIGRATION.985018 4168 Information not available 07/21/2022 Are There Any Guns Present In Your Home? No MIGRATION.160304 8505 Information not available 07/21/2022 What Was The Date Of Your Most Recent Tobacco Screening? 10/30/2019 MIGRATION.[id number] 9014 Information not available 07/21/2022 What Is Your Current Pack Years? 30ormorepackye ars MIGRATION.503044 8400 Information not available 07/21/2022 What Is Your Relationship Status? MIGRATION.[id number] 1639 Information not available 07/21/2022 At What Age Did You Start Smoking Tobacco? 25 MIGRATION.874657 7424 Information not available 07/21/2022 Do You Or Have You Ever Used Smokeless Tobacco? Never Used Smokeless Tobacco MIGRATION.549712 3486 Information not available 07/21/2022 How Much Tobacco Do You Smoke? No MIGRATION.575733 5523 Information not available 07/21/2022 Do You Participate In Social Media? No MIGRATION.331190 9931 Information not available 07/21/2022 Do You Feel Stressed (tense, Restless, Nervous, Or Anxious, Or Unable To Sleep At Night)? [id number] MIGRATION.108880 7076 Information not available 07/21/2022 Do You Use Any Illicit Or Recreational Drugs? No MIGRATION.956058 5419 Information not available 07/21/2022 Do You Use Sunscreen Routinely? Yes MIGRATION.472880 5614 Information not available 07/21/2022 Has Tobacco Cessation Counseling Been Provided? No MIGRATION.405695 9664 Information not available 07/21/2022 How Many Years Have You Smoked Tobacco? 26 MIGRATION.913098 8303 Information not available 07/21/2022 Have You Recently Traveled Abroad? No MIGRATION.244179 5876 Information not available 07/21/2022 Are You Currently In School? No MIGRATION.091470 3645 Information not available 07/21/2022 Do You Have Any Dietary Restrictions? No MIGRATION.600161 8131 Information not available 07/21/2022 Do You Or Have You Ever Used Any Other Forms Of Tobacco Or Nicotine? No MIGRATION.242093 5796 Information not available 07/21/2022 Sex: Unknown Functional Status Question Answer Note LastModified by Organizat ion Details LastModified Time What is your exercise level? None [id number] Information not available 07/21/2022 Mental Status None recorded. Family History Relationship Description Onset Age of this Age Resolved Age Notes LastModified by Organization Details LastModified Time Mother Essential hypertension [email or web address] Not available 03/23/2024 10:55:36 Mother Cholecystect clinton frivastorres Not available 05/2023 10:55:36 Mother Diabetes mellitus [id number] Not available 07/21/2022 07:28:42 Maternal Aunt Diabetes mellitus [id number] Not available 07/21/2022 07:28:42 Maternal Uncle Diabetes mellitus [id number] Not available 07/21/2022 07:28:42 Daughter Essential hypertension [email or web address] Not available 03/23/2024 10:55:36 Daughter Cholecystect clinton frivastorres Not available 05/2023 10:55:36 Medical History Condition Response BLINDNESS N RHEUMATIC FEVER N KIDNEY STONES N BLADDER PROBLEMS N MRSA N POLIO N LUNG DISEASE/DISORDER N RADIATION / CHEMOTHERAPY N COPD N BLOOD DISEASES N SURGERY N EAR OR HEARING PROBLEMS N MUMPS N BOWEL PROBLEMS N FEMALE PROBLEMS / INFECTIONS N DEPRESSION (INCLUDING POST ) Y STROKE/TIA N THYROID DISEASE N ULCERS N BENIGN PROSTATIC HYPERPLASIA N MEASLES N CERVICALGIA N TB SKIN TEST N MYOCARDIAL INFARCTION N PARAPELGIA N OBESITY N GERD/NAUSEA N ANEURYSM N URINARY/BLADDER/KIDNEY PROBLEMS N CORONARY ARTERY DISEASE (CAD) N MENIERE'S DISEASE N ADDICTION CONCERNS N ENDOMETRIOSIS N USE OF BLOOD THINNERS N SKIN PROBLEMS N EMPHYSEMA N GASTROINTESTINAL DISORDER N MUSCLE,JOINT OR BONE PROBLEMS N GASTROINTESTINAL BLEEDING N BLOOD CLOTS N ASTHMA N CATARACTS N ERECTILE DYSFUNCTION N GI PROBLEMS N CHF N Low Testosterone N NEUROPATHY N INFERTILITY N AIDS/HIV N FRACTURES N CHEMOTHERAPY / RADIATION N VISION/EYE PROBLEMS N LIVER DISEASE N MALE HYPOGONADISM N HYPERTENSION N ANXIETY DISORDER Y BLOOD TRANSFUSION N ANEMIA/BLOOD DISORDER N CHRONIC EAR INFECTIONS N BRONCHITIS N TUBERCULOSIS N GLAUCOMA N FOOT PROBLEM N DIVERTICULITIS N CHICKENPOX N SLEEP APNEA N ALLERGIES/HAYFEVER N INFECTIOUS DISEASE N HEART ARRHYTHMIA N PROSTATE N INSOMNIA N HIGH CHOLESTEROL / HYPERLIPIDEMIA N HYPERTHYROIDISM N EYE PROBLEMS N EATING DISORDER N EDEMA N CHRONIC PAIN SYNDROME N CAROTID BLOCKAGE N CONSTIPATION N BACK / NECK PROBLEMS N HAVE YOU BEEN HOSPITALIZED OR SEEN IN [facility] IN THE PAST YEAR ? N ATHEROSCLEROSIS N BREAST PROBLEMS N DIALYSIS N ECZEMA N FIBROMYALGIA N OSTEOPOROSIS N ARTHRITIS N NO SIGNIFICANT PAST MEDICAL HISTORY N APPENDICITIS N DIABETES, TYPE N BAD TEETH N HEARTBURN / REFLUX N ADD/ADHD N AFIB N AUTISM SPECTRUM DISORDER (ASD) N HEPATITIS / LIVER DISEASE N PULMONARY DISEASE N GOUT N SLEEP DISORDER N ALZHEIMER'S DISEASE N PAIN N HERPES N DEMENTIA N HEADACHES/MIGRAINES N SEIZURES/EPILEPSY N VASCULAR DISEASE N PACEMAKER N DIZZINESS N HEART DISEASE/HEART PROBLEMS N KIDNEY DISEASE N DEVELOPMENTAL OR BEHAVIORAL DISORDERS N MULTIPLE SCLEROSIS N SCARLET FEVER N MENTAL DISORDER/ILLNESS N CARDIAC ARRHYTHMIA N CANCER: SPECIFY N PNEUMONIA N ATRIAL FIBRILLATION N Gall Stones N PULMONARY EMBOLISM N AUTOIMMUNE DISEASE N Gynecological History Statement/Question Response Abnormal Pap N Sexually Active? Y Dislike of Light during Menstrual Headac he N Menses Monthly N STIs/STDs N Current Control Method None Breast Problems no Discharge no Obstetrics History GPAL:G 3 P 3 0 0 3 Type Value Full Term 3 Living 3 Total 3 Immunizations Vaccine Type Date Status Note Provider Nam e and Address Organization Details Recorded Time pneumococcal polysaccharide PPV23 2 completed Not Available [facility] 07/21/2022 07:42:50 Influenza, split virus, trivalent, PF 2 completed Not Available [facility] 07/21/2022 07:42:50 SARS-COV-2 (COVID-19) vaccine, UNSPECIFIED 1 completed Not Available [facility] 07/21/2022 07:42:50 Influenza, split virus, quadrivalent, PF 1 completed Not Available [facility] 07/21/2022 07:42:50 Influenza, split virus, quadrivalent, preservative 9 completed Not Available [facility] 07/21/2022 07:42:50 Tdap 7 completed Not Available [facility] 07/21/2022 07:42:50 Influenza, split virus, quadrivalent, preservative 6 completed Not Available [facility] 07/21/2022 07:42:50 Influenza, split virus, quadrivalent, PF 5 completed Not Available [facility] 07/21/2022 07:42:51 Past Encounters Encounter ID Performer Location Encounter Start Date Encounter Closed Date Diagnosis/Indication Diagnosis SNOMED-CT Code Diagnosis ICD10 Code Diagnosis Note [id number] [facility] [place] [address] [place] [address] [address] [place] [address] 09/05/2020 00:00:00 09/05/2020 09:25:58 [id number] [facility] [place] [address] [place] [address] [address] [place] [address] 10/10/2020 00:00:00 10/10/2020 12:05:31 [id number] [facility] [place] [address] [facility] [address] [place] [address] 11/07/2020 00:00:00 11/07/2020 13:45:50 [id number] [facility] [place] [address] [facility] [address] [place] [address] 12/05/2020 00:00:00 12/05/2020 14:04:16 [id number] [facility] [place] [address] [place] [address] 01/02/2021 00:00:00 01/02/2021 21:05:39 [id number] [facility] [place] [address] [place] [address] 02/10/2021 00:00:00 02/10/2021 18:13:13 [id number] [facility] [place] [address] [place] [address] 03/13/2021 00:00:00 03/13/2021 20:34:08 [id number] [facility] [place] [address] [place] [address] 04/10/2021 00:00:00 04/10/2021 13:52:52 [id number] [facility] [place] [address] [place] [address] 05/08/2021 00:00:00 05/08/2021 16:40:32 [id number] [facility] [place] [address] [place] [address] 06/05/2021 00:00:00 06/05/2021 17:15:24 [id number] [facility] [place] [address] [place] [address] 07/14/2021 00:00:00 07/14/2021 14:11:48 [id number] [facility] [place] [address] [place] [address] 08/11/2021 00:00:00 08/11/2021 20:42:18 [id number] [facility] [place] [address] [place] [address] 09/08/2021 00:00:00 09/09/2021 20:30:57 [id number] [facility] [place] [address] [place] [address] 10/06/2021 00:00:00 10/06/2021 14:05:52 [id number] [facility] [place] [address] [place] [address] 11/03/2021 00:00:00 11/03/2021 11:30:20 [id number] [facility] [place] [address] [place] [address] 12/01/2021 00:00:00 12/01/2021 16:07:55 [id number] [facility] [place] [address] [place] [address] 01/12/2022 00:00:00 01/12/2022 14:05:08 [id number] [facility] [place] [address] [place] [address] 02/11/2022 00:00:00 02/11/2022 20:07:26 [id number] [facility] [place] [address] [place] [address] 02/25/2022 00:00:00 02/25/2022 11:53:18 [id number] [facility] [place] [address] [place] [address] 04/06/2022 00:00:00 04/06/2022 19:01:25 [id number] [facility] [place] [address] [place] [address] 05/18/2022 00:00:00 05/18/2022 17:58:40 [id number] [facility] [place] [address] [place] [address] 06/29/2022 00:00:00 06/29/2022 12:08:24 [id number] LUCIAN Kendall [facility] [place] [address] [place] [address] 08/24/2022 10:52:24 08/24/2022 11:27:35 Increased frequency of urination [id number] R35.0 R32 R30.0 New problem--U TI-Urine dip in office today/UA sent for C & S. Will start on PO abx. Advised continue increased fluid intake to flush urinary tract. Discussed proper feminine hygiene (wipe front to back, unscented soaps/mois turizers, empty bladder immediatel y after sexual activity). Encouraged use of probiotics . Tremor [id number] R25.1 08/24/22: ChronicLik jennifer d/t long-covid Again observed full body tic/tremor Pt has been seen by neuro (Dr. Bentley) on 08/16/22 and dx with functional neurologic (conversio n) disorder (FND)Loraz epam dosing increased to 1mg QAM, noon & 2mg QHS. 06/29/22: Not improving, even with clonazepam . Pt has appt with Dr. Bentley (neuro) on 08/16/22 to evaluate tremors/ti cs. Pt has been on current mental health meds for an extended period of time and although possible, TD is less likely. Will discontinu e clonazepam and give trial of lorazepam instead. Substantia l tremors/sh aking of whole body observed during office visit. Per patient and , sx worsen substantia lly when she has to leave the house, indicating there is some psychosoci al component to the sx she is experienci ng. Per previous neuro, this may also represent a medication s/e. We are also considerin g whether sx are another manifestat ion of pts post-covid sx. 05/18/22: Will generate new neuro referral to Dr. Bentley to evaluate tremors/ti cs. Again reassured pt and that both MRIs brain from earlier this year were normal and do not show any indication of pathologic al process. 04/06/22: Chronic, not changed. Pt reports sx worsen with stress, being out of her home and commotion . Although pt reports is concerned about Parkinson' s, this is unlikely since pts MRIs (11/20/20 & 07/21/21) have been unremarkab le. Advised pt to f/u with neuro provider to review imaging and determine whether there is any evidence of disease process. 01/12/22: Tremors improved with propranolo l. Substantia l tic/twitch /tremor observed during office visit today. 12/01/21: Not improved per patient and . Pt indicates she hasn't consistent ly taken the propranolo l prescribed by neuro so we do not have an accurate assessment at this time. No tic/twitch /tremor observed during office visit today. 11/03/21: Not improved per patient and ; however, pt gets some improvemen t with thc.Differ entials include post viral/Guil francisco Garland (most likely), Myasthenia Gravis, Parkinson' s (less likely). Keep scheduled appt with new neuro provider (Dr. Tanmay Sánchez) for 2nd opinion next month. 09/08/21: Patient is establishe d with neurologis t, but would like to get a second opinion. Referral generated. Recommend following up with neurologis t and present video of episode. Video shows pt sitting on couch and whole body shaking. Tremors appear to start in upper extremitie s, but spread to lower extremitie s as well. Mild bilat tremor observed during last office visit., but no evidence that it is impairing mobility. Observed full body tic/twitch /tremor during today's office visit.MRI unremarkab le (07/21/21) Urinary incontinence 165 [id number] R32 ChronicEnc ouraged q 2hr toileting, Kegel exercises. Checking UA and culture for possible UTI. Discussed this may be sequelae of long-covid . Psychologi c conversion disorder [id number] F44.9 Functional Neurologic DisorderNe w dx per neurology (Dr. Bentley)R eviewed neurology note from Dr. 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), with abnormal movement- evaluated patient and discussed my impression that she is a functional neurologic disorder- directed patient to the website [email or web address]or g- address that many patients with a functional neurologic disorder can benefit from seeing a therapist particular ly as symptoms can cause significan t emotional stress and feelings of hopelessne ss- PSYCHOLOGY REFERRAL; Future [id number] LUCIAN Kendall [facility] [place] [address] [facility] [address] [place] [address] 12/15/2022 10:55:43 12/15/2022 11:34:08 Tremor [id number] R25.1 12/15/22: Chronic, secondary to long covid. No relief of sx with propranolo l, aripiprazo le, amitriptyl ine, bupropion, clonazepam , cyclobenza annamaria, desvenlafa xine, duloxetine , fluoxetine , gabapentin , lexapro, nortriptyl ine, quetiapine , sertraline , topiramate . Sx dx as FND/conver jania disorder by neurology. Pt continues to decline referral to long-covid clinic. Ongoing tremors, migraines, and other neurologic sx make pt unsafe to drive or operate machinery. Pt reports difficulty performing even normal household tasks/chor es. 08/24/22: ChronicLik jennifer d/t long-covid Again observed full body tic/tremor Pt has been seen by neuro (Dr. Bentley) on 08/16/22 and dx with functional neurologic (conversio n) disorder (FND)Loraz epam dosing increased to 1mg QAM, noon & 2mg QHS. 06/29/22: Not improving, even with clonazepam . Pt has appt with Dr. Bentley (neuro) on 08/16/22 to evaluate tremors/ti cs. Pt has been on current mental health meds for an extended period of time and although possible, TD is less likely. Will discontinu e clonazepam and give trial of lorazepam instead. Substantia l tremors/sh aking of whole body observed during office visit. Per patient and , sx worsen substantia lly when she has to leave the house, indicating there is some psychosoci al component to the sx she is experienci ng. Per previous neuro, this may also represent a medication s/e. We are also considerin g whether sx are another manifestat ion of pts post-covid sx. 05/18/22: Will generate new neuro referral to Dr. Betnley to evaluate tremors/ti cs. Again reassured pt and that both MRIs brain from earlier this year were normal and do not show any indication of pathologic al process. 04/06/22: Chronic, not changed. Pt reports sx worsen with stress, being out of her home and commotion . Although pt reports is concerned about Parkinson' s, this is unlikely since pts MRIs (11/20/20 & 07/21/21) have been unremarkab le. Advised pt to f/u with neuro provider to review imaging and determine whether there is any evidence of disease process. 01/12/22: Tremors improved with propranolo l. Substantia l tic/twitch /tremor observed during office visit today. 12/01/21: Not improved per patient and . Pt indicates she hasn't consistent ly taken the propranolo l prescribed by neuro so we do not have an accurate assessment at this time. No tic/twitch /tremor observed during office visit today. 11/03/21: Not improved per patient and ; however, pt gets some improvemen t with thc.Differ entials include post viral/Guil francisco Garland (most likely), Myasthenia Gravis, Parkinson' s (less likely). Keep scheduled appt with new neuro provider (Dr. Tanmay Sánchez) for 2nd opinion next month. 09/08/21: Patient is establishe d with neurologis t, but would like to get a second opinion. Referral generated. Recommend following up with neurologis t and present video of episode. Video shows pt sitting on couch and whole body shaking. Tremors appear to start in upper extremitie s, but spread to lower extremitie s as well. Mild bilat tremor observed during last office visit., but no evidence that it is impairing mobility. Observed full body tic/twitch /tremor during today's office visit.MRI unremarkab le (07/21/21) Psychologi c conversion disorder [id number] F44.9 Functional Neurologic DisorderPe r neurology (Dr. Bentley) Reviewed neurology note from Dr. 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), with abnormal movement- evaluated patient and discussed my impression that she is a functional neurologic disorder- directed patient to the website [email or web address]or g- address that many patients with a functional neurologic disorder can benefit from seeing a therapist particular ly as symptoms can cause significan t emotional stress and feelings of hopelessne ss- PSYCHOLOGY REFERRAL; Future Migraine [id number] G43.90 9 Not well controlled , s/p CovidPt seen by neuro 10/2021, recommenda tion was for Botox injections ; however, insurance declined. Pt only getting partial relief with Emgality. Pt has failed propranolo l, amitriptyl ine, desvenlafa xine, duloxetine , fluoxetine , gabapentin , nortriptyl ine, topiramate .Headache prevention techniques reviewed. Importance of lifestyle measures reviewed including managing stress, good sleep hygiene, avoiding headache triggers. Ensure take daily preventati ve meds, avoid overuse of headache treatment meds.MRI unremarkab le (11/20/21 & 07/21/21)Ok to continue with Advil Allergy Sinus as this provides some additional relief. [id number] Sharita De La Paz MD [facility] Primary Care [place] [address] [address] [place] [address] 03/22/2023 10:49:13 03/22/2023 11:38:39 Tremor [id number] R25.1 Rheumatoid arthritis 698 71996 M06.9 Z79.899 Migraine 18484041 G43.90 9 continue emgality 300 mg sc qmonth Recurrent conversion disorder [id number] F44.4 dx by neurology with functional neurologic al disorder with abnormal movementss he has constant tremor, headache, fatigue but 3+ days per week of more severe symptoms that can be triggered by stress or leaving her homesome worsening since last appt with increase in tremors/ti cs, new facial spasms, slurred speech, gibberishu nable to manage ADLs/IADLs without assistance , unable to drive/oper ate heavy [employer]u nable to work at this timed/c diazepamre start lorazepam 1 mg po bid and 2 po qhscontinu e home exercisech nataly labsf/u in 3 months or sooner if needed Fatigue [id number] R53.83 check labs Cobalamin deficiency 190 137344 E53.8 Vitamin D deficiency 347 62057 E55.9 [id number] Sharita De La Paz MD [facility] Primary Care [facility] [place] [address] [place] [address] 06/21/2023 10:54:18 06/21/2023 11:38:23 Neuropathy [id number] G62.9 has failed gabapentin check labs Hypercalcemia 35477471 E 83.52 noted on labscheck PTH and ionized calcium Cobalamin deficiency 190 614187 E53.8 Tremor 41632405 R25.1 no changeok to continue lorazepam 1 mg up to 4x per dayf/u in 3 months or sooner if needed Recurrent conversion disorder 75095255 F44.4 dx by neurology with functional neurologic al disorder with abnormal movementss he has constant tremor, headache, fatigue but 3+ days per week of more severe symptoms that can be triggered by stress or leaving her homesome worsening since last appt with increase in tremors/ti cs, new facial spasms, slurred speech, gibberishu nable to manage ADLs/IADLs without assistance , 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 Primary Care [facility] [place] [address] [facility] [address] [place] [address] 09/20/2023 11:07:34 09/20/2023 11:32:03 Tremor [id number] R25.1 no changeok to continue lorazepam 1 mg up to 4x per dayf/u in 6 months or sooner if needed Hypercalcemia 34942616 E 83.52 noted on labs previously PTH normal but ionized calcium couldn't be donerechec k ionized calcium Leukocytosis 649482613 D 72.[id number] [facility] Primary Care [facility] [place] [address] [facility] [address] [place] [address] 11/04/2023 11:53:09 11/04/2023 12:05:[id number] 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 03373527 E34.9 tremors, slurred/de layed speechpt believes symptoms improve at times Insomnia 556818000 G47.0 0 FMD causing trouble staying asleephas tried melatonin without reliefuses lorazepamt rial trazodone Health Concerns Section Related Observation LastModified by Organization Detai ls LastModified Time None Recorded Concern Status LastModified by Organization Details LastModified Time None Recorded Advance Directives Directive N: Payers Encounter Date Sequence Insurance Name Policy Number Policy Jordan Covered Member ID Jordan Member ID Guarantor Name 03/22/2023 1 [place] [id number] [place] [id number] Lory[place]ell Bridges 06/21/2023 1 [place]) [id number] [place] [id number] Lory Hernández Cyrus 09/20/2023 1 [place] [id number] [place] [id number] Lory Hernández Cyrus 09/20/2023 2 [place] Lory Hernández Cyrus [id number] Lory Hernández Cyrus 11/04/2023 1 [place] [id number] [place] [id number] Lory Hernández Cyrus 11/04/2023 2 [place] Lory Hernández Cyrus [id number] [place] 03/23/2024 2 [place] Lory Hernández Cyrus [id number] Lory Hernández Cyrus 03/23/2024 1 [place] [employer] ([place]) [id number] [place] [id number] Lory Hernández Cyrus Notes Date Note Type Note Provider Name and Address Organization Details Recorded Time 03/22/2023 text/html update 03/22/23: Accompanied by today, pt unable to communicate. 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 Since her last appt, she has developed facial spasms, slurred speech and gibberish during episodes. Diazepam is not as effective as lorazepam was. Lorazepam does not treat/stop episodes but it can decrease symptoms a bit if she feels it coming on. Propranolol ER 60 mg daily did not help tremor so she d/c it. Stress has been identified as a big trigger, having sensory overload (for example sites/sounds outside the home like bright sunlight or a siren) can trigger episodes. She always has at least some symptoms even on good days-headache, tremor and fatigue are constant. During episodes she has full body shaking, confusion, facial spasms, severe headache, pressure on her brain. Her speech is slurred and her words sound like gibberish although she is able to understand what is being said to her. She is trying to walk as often as possible and stay active inside her home. Flares happen 3 or more days each week. 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 12/15/22: 1. Pt in office for 3 month f/u on long covid sx. Pt states she does not feel safe to drive or operate any machinery because of the tremors and falls. Pt states she hasn't driven in the past 2.5yrs. Tremors did not improve with propranolol, aripiprazole, amitriptyline, bupropion, clonazepam, cyclobenzaprine, desvenlafaxine, duloxetine, fluoxetine, gabapentin, lexapro, nortriptyline, quetiapine, sertraline, topiramate.2. Pt reports migraines are still bad despite monthly Emgality injections. Has failed several other meds. Is getting some improvement with otc Advil Allergy Sinus, but needs rx d/t it containing pseudoephedrine. 08/24/22: 1. Pt in office with for 2 month f/u on neuro appt with Dr. Bentley. 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 Advised pt there is currently no tx for this. Pt states lorazepam isn't working as well for her.2. Pt c/o having pain with urination, incontinence, and frequency for several weeks. States she used several home tests and one was definitely positive. Pt states that as soon as she gets the urge she isn't able to hold her urine and loses control of her bladder.3. Pt states she isn't sleeping well, states she is up and down all night eating everything in the house . 06/29/22: 1. Pt in office with for 6 wek f/u appt. Pt states tremors are the same most everyday. Pt and state tremors are worse with leaving the house. Pt states she is also hearing frequencies, states she hears frequencies (electrical) that he doesn't hear. Pt states the tremors make it very difficult to leave the house. Pt states sx don't improve with clonazepam. Has appt with new neuro (Dr. Bentley), August 16.2. Pt states cough is better with meds she got last visit.3. Pt states she would like to be on something for her overactive bladder. States she stopped taking the Vesicare previously due to insurance. Pt states sx seem to be worse over the past few months. Pt states she is constantly going to the bathroom and is at risk of having accidents. 05/18/22: 1. Pt in office with for 6 week f/u appt. states pts tremors have been getting worse when she leaves the house. Pt states neuro provider (Dr. Tanmay Sánchez) told her that her tremors were better b/c her hands weren't shaking during last visit and he believes her sx are d/t medication. Pt states they haven't found a new provider to f/u with yet. still concerned this may be Parkinson's disease b/c some studies have indicated covid may activate early onset of Parkinson's and/or Alzheimer's disease.2. Pt states that she is still having the persistent cough since February. Pt states sx didn't improve at all with po steroids. states sx are the worst in the eviction specialist. Was dx with mild obstructive airway disease via PFT (02/19/21). Pt states the cough often makes her throw up. States the vomit is primarily mucous. 04/06/22: 1. Pt presents for telehealth video/phone conference. Verbal consent witnessed by medical reimbursement manager student and Ivette Macedo (provider).2. Pt presents for 4 week f/u on depression sx since increasing Abilify dosage. Pt states she thinks she is feeling a little better with the higher dose. States she is down a lot . Thinks her down feeling is d/t her health issues.3. Pt c/o still having cough with lots of mucous since last visit. No improvement with otc cough/cold meds and higher doses of antihistamines.4. Pt states her believes her tics/tremors might be due to Parkinson's disease. Pt states the tremors just consume my life . Pt states stress/commotion set the tremors off. States she is at the point she can't even have people over. 02/25/22: 1. Pt presents for telehealth video/phone conference. Verbal consent witnessed by Yun Reagan (MA) and Ivette Macedo (provider).2. Pt presents for 2 week f/u on medication change. Pt states no problems with starting the abilify, but hasn't really noticed any improvement in her depression sx yet.3. Pt states she is feeling like she is getting sick. States she has been congested, had a cough, sore throat. No improvement with Mucinex or otc allergy meds. States she has been having nausea for the past few days. 02/11/22: 1. Pt in office with for 4 week f/u on chronic post-covid sx. Pt states she has a mental status exam next week that was ordered by disability people.2. Pt states propranolol helps some with shakes and tremors, but states her whole body will jerk around.3. Pt states she is taking desvenlafaxine 100mg daily. States there have been times when she hasn't been taking it d/t nausea sx and thought it might be cause of her neuro sx. Pt states she is tired all the time, has no motivation. States she has been back on it consistently for a few months.4. Pt states she just took her last dose of Emgality and is waiting for approval for Botox from insurance carrier. Pt states she is also concerned about taking the Botox since she has autoimmune disease and takes hydroxychloroquine. 01/12/22: 1. Pt in office for 4 week f/u on chronic post-covid sx.2. Pt and report that she has been approved for Botox injections for her migraines. States she isn't sure about switching from Emgality to the Botox.3. States she doesn't know if she wants to see Dr. Tanmay Sánchez again b/c he hasn't treated anyone with long covid. States he tells her that her memory issues and head jerking are s/e of her antidepressant medication. Pt states the propranolol helps with the tremors. 12/01/21: 1. Pt in office with for 4 week f/u appt. Pt states she saw neuro and the plan is to continue with Emgality until she can be started on Botox injections for her headaches.2. Pt reports she hasn't really been taking the propranolol b/c she has been having a lot of nausea and stomach upset. States it got so bad she went to the ER, but there was no issue found. States they sent her home with nausea meds.3. Pt states no improvement in her post-covid symptoms. States neuro started her on propranolol for the tremors and headaches. 11/03/21: 1. Pt in office with for f/u appt. Pt and state they have their appt with the neuro for 2nd opinion next week. Has appt with disability doctor in November. Pt states she is hoping to get more answers with the new neuro provider. states her biggest complaints from the neurological issues. States she has cycles of nausea, intestinal problems, pressure in her head, disorientation, tremors.2. Pt states the injections help somewhat with the headaches, but states it seems to wear off pretty quickly.3. Pt states her newest sx is waking up feeling panicky. States it seems to set off the headaches, tremors, and pressure in her head. States she feels like she has covid brain constantly. States she has trouble with her short-term memory. States she is unable to drive anymore. States she doesn't leave the house b/c of the tremors. States it gets set off by over stimulation. 10/06/21: 1. Pt. states she is here for her monthly follow-up for post-covid syndrome. No improvement in symptoms. She has been taking Claritin twice daily.2. States she is having more joint pain on her left side (hip down the leg), which she attributes to a flare up of her RA.3. Tremors are not improved. States she has not followed up with neurology yet.4. Headaches slightly improved with emgality. States she still has to take otc pain reliever's as well on some days to get rid of headaches. 09/08/21: 1. Pt in office with for f/u on chronic post-covid sx. No improvement in sx. Pt states she isn't able to function well enough to go back to work. States she is currently on long-term disability, but recently received call from the HR dept at her job asking when she is coming back to work.2. Pt states the tremors/twitches haven't really improved. Pt states the sx come/go. Seems to be worse when she goes out of the house. States this seemed to have started after her second bout of covid earlier this year. Also had shingles immediately after. states the only thing that seems to help is thc.3. Pt states she didn't receive all of her Emgality with the last fill. States she only received 1 injection (100mg) instead of 3 syringes (total 300mg). 08/11/21: 1. Pt in office with for f/u on chronic covid 19 sx. Pt states she hasn't started taking the higher dose anti-histamines yet, states she still isn't sure it will work. Pt states she is still struggling with the fatigue, brain fog, dizziness, daily HAs with light sensitivity. Gets a little improvement with Emgality, but still having to take otc pain relievers every day.2. Pt states she is in the process of applying for permanent disability. States she has an admitted attorneys assisting.3. Pt and report that her tremors are better since last visit. 07/14/2021: 1. Pt is a 46yo female presenting to the office for follow up s/p COVID 19 infection. Has autoimmune disease, has tried taking Benadryl to assist with post-COVID syndrome - doesn't help much, also made headaches in the morning worse, but this was before starting Emgality. Had COVID 19 again in May 2021, which triggered second Shingles flare, same spot as the first time. Both have resolved.2. Had an episode of shaking/tremors. First episode started with hands, then progressed to involve entire body. Episodes have progressively gotten worse. Patient reportedly mostly coherent during episode, eyes roll back. Reports speaking with neurologist and walking in their office - was told possibly hypoglycemia. Patient's partner has video of episode. Patient reports that during episode she is unable to lift leg. 06/05/21: 1. Pt presents for telehealth video/phone conference. Verbal consent witnessed by medical reimbursement manager name (MA) and Ivette Macedo (provider).2. Pt states she is feeling like she is coming down sick . States she has a cough, body aches, fever. Worried that it could be flu or covid b/c is back at work. States son and are both sick as well.3. Pt states abd pain is better, but still present. Still having some vaginal bleeding. Reports she hasn't gotten call to schedule with isotope technologist provider.4. Pt states she has an upcoming appt with neuro to address the chronic headaches. States sx still aren't improving, and have gotten a little worse with most recent URI sx. 05/08/21: 1. Pt in office with for 4 week f/u appt. Pt states she still has HAs everyday all day. Pt states she now also has ringing in her ears. Pt states still having fatigue, muscle pain. States she feels like she gets new sx constantly.2. Pt c/o having awful pain in the lower part of her stomach, cramping, and bleeding heavily since [place]. States she had a uterine ablation years ago and normally has very little bleeding. Pt states pain doubles her over. Getting minimal improvement with otc Midol, heating pad use. 04/10/21: 1. Pt in office with for 4 week f/u appt. Pt states nothing has changed with her post covid sx. Pt states she is still feeling severely tired, having brain fog, weakness, poor memory, vision issues, headaches. States she is still unable to drive most of the time.2. Pt c/o having sore spots on her legs/arms and thinks she might be developing fibromyalgia. States she was previously on duloxetine and felt like it just made her cry, so she was only on it for a couple of months.3. Pt states they are still waiting for Emgality approval for the higher dose. 03/13/21: 1. Pt in office with for 4 week f/u appt. Pt states she feels like she just isn't getting better at all . Pt states she feels like she had covid again in January b/c her son was sick and she had loss of taste, sore tongue, and a cough. States the at-home test was negative. pt sttes she is at the point that she feels like she is never going to improve. Pt states she is angry b/c her life is so different now.2. Pt states she saw neuro on 02/11/21. Pt states she is still going to be on the topiramate and emgality for the headaches, but states she is still having sharp stabbing headaches. Reports neuro added gabapentin and meclizine. Pt states she had another day recently that her had to help her walk again b/c her legs were too weak. States she is still getting sensitivity to light/sound, but won't have a headache. Pt states her skin on her legs/arms on the outsides are even tender to touch. Pt states neuro found that she has nystagmus and believes that's what's causing her to have trouble reading and other vision issues.3. Pt states her tongue is still weird . States it feels like it did when she had covid. States it feels like it's scorched.4. Pt states she wasn't able to do her PT/OT b/c she wasn't able to walk.5. Pt states she saw cardiology (Dr. Davis) and was told that her cholesterol is high and that she now has copd. Pt states she had a stress test, pfts, holter monitor. States she was started on cholesterol medication and is supposed to have a cxr. States he told her to f/u in a year. 02/10/21: 1. Pt in office with for 4 week f/u appt. Pt states she isn't able to fill out forms on her own. States she is struggling with her memory and vision. states her cognitive function is delayed. Pts states she has an appt with neuro tomorrow and is having a stress test b/c it was recommended by cardiology.2. Pt states she isn't having any issues with the hydroxychloroquine.3 . Pt c/o having pain in her left shoulder that radiates down her arm.4. Pt states that headaches are improved with Emgality, but she is still having headaches daily. Still taking topiramate, but not getting full relief. Pt states the week before she is due for the next Emgality injection. 01/02/21: 1. Pt in office for 4 week f/u appt. Pt states she is still struggling with the headaches. States no improement with topiramate increase.2. Pt also c/o having constant GI issues. States lots of diarrhea, not improved by omeprazole and probiotic. Pt reports GI sx improved a little in the past with removal of gallbladder, but seems to have gotten worse lately. States she gets a bad pain in her abd and has to run to the bathroom.3. Pt states he hasn't noticed any change in any of her sx with resumption of hydroxychloroquine.4 . Pt states she hasn't gotten a call from cardiology to schedule an appt to evaluate heart function. 12/05/20: 1. Pt in office for f/u on post-covid sx. Pt states that there has been no improvement in her sx since last visit. states she is actually doing worse. Pt now c/o having vision changes and is very afraid to drive. Pt states she hasn't gotten a call to schedule appt with neuro.2. Pt states she saw her mechanical expert and had updated labs done. States they didn't make a recommendation for her to get back on autoimmune meds. Sharita De La Paz MD [address] [place] [address], [address] [address], [place], [address], [facility] [employer] 03/22/2023 13:59:29 06/21/2023 text/html update 06/21/23: No interval change. She tolerates lorazepam well and she does find it helpful. She does get woken up every few hours from sleep feeling like her nervous system is ramped up. She has had some numbness/tingling in her feet starting in April. Update 03/22/23: Accompanied by today, pt unable to communicate. 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 Since her last appt, she has developed facial spasms, slurred speech and gibberish during episodes. Diazepam is not as effective as lorazepam was. Lorazepam does not treat/stop episodes but it can decrease symptoms a bit if she feels it coming on. Propranolol ER 60 mg daily did not help tremor so she d/c it. Stress has been identified as a big trigger, having sensory overload (for example sites/sounds outside the home like bright sunlight or a siren) can trigger episodes. She always has at least some symptoms even on good days-headache, tremor and fatigue are constant. During episodes she has full body shaking, confusion, facial spasms, severe headache, pressure on her brain. Her speech is slurred and her words sound like gibberish although she is able to understand what is being said to her. She is trying to walk as often as possible and stay active inside her home. Flares happen 3 or more days each week. 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 12/15/22: 1. Pt in office for 3 month f/u on long covid sx. Pt states she does not feel safe to drive or operate any machinery because of the tremors and falls. Pt states she hasn't driven in the past 2.5yrs. Tremors did not improve with propranolol, aripiprazole, amitriptyline, bupropion, clonazepam, cyclobenzaprine, desvenlafaxine, duloxetine, fluoxetine, gabapentin, lexapro, nortriptyline, quetiapine, sertraline, topiramate.2. Pt reports migraines are still bad despite monthly Emgality injections. Has failed several other meds. Is getting some improvement with otc Advil Allergy Sinus, but needs rx d/t it containing pseudoephedrine. 08/24/22: 1. Pt in office with for 2 month f/u on neuro appt with Dr. Bentley. 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 Advised pt there is currently no tx for this. Pt states lorazepam isn't working as well for her.2. Pt c/o having pain with urination, incontinence, and frequency for several weeks. States she used several home tests and one was definitely positive. Pt states that as soon as she gets the urge she isn't able to hold her urine and loses control of her bladder.3. Pt states she isn't sleeping well, states she is up and down all night eating everything in the house . 06/29/22: 1. Pt in office with for 6 wek f/u appt. Pt states tremors are the same most everyday. Pt and state tremors are worse with leaving the house. Pt states she is also hearing frequencies, states she hears frequencies (electrical) that he doesn't hear. Pt states the tremors make it very difficult to leave the house. Pt states sx don't improve with clonazepam. Has appt with new neuro (Dr. Bentley), August 16.2. Pt states cough is better with meds she got last visit.3. Pt states she would like to be on something for her overactive bladder. States she stopped taking the Vesicare previously due to insurance. Pt states sx seem to be worse over the past few months. Pt states she is constantly going to the bathroom and is at risk of having accidents. 05/18/22: 1. Pt in office with for 6 week f/u appt. states pts tremors have been getting worse when she leaves the house. Pt states neuro provider (Dr. Tanmay Sánchez) told her that her tremors were better b/c her hands weren't shaking during last visit and he believes her sx are d/t medication. Pt states they haven't found a new provider to f/u with yet. still concerned this may be Parkinson's disease b/c some studies have indicated covid may activate early onset of Parkinson's and/or Alzheimer's disease.2. Pt states that she is still having the persistent cough since February. Pt states sx didn't improve at all with po steroids. states sx are the worst in the eviction specialist. Was dx with mild obstructive airway disease via PFT (02/19/21). Pt states the cough often makes her throw up. States the vomit is primarily mucous. 11/15/22: 1. Pt presents for telehealth video/phone conference. Verbal consent witnessed by medical reimbursement manager student and Ivette Macedo (provider).2. Pt presents for 4 week f/u on depression sx since increasing Abilify dosage. Pt states she thinks she is feeling a little better with the higher dose. States she is down a lot . Thinks her down feeling is d/t her health issues.3. Pt c/o still having cough with lots of mucous since last visit. No improvement with otc cough/cold meds and higher doses of antihistamines.4. Pt states her believes her tics/tremors might be due to Parkinson's disease. Pt states the tremors just consume my life . Pt states stress/commotion set the tremors off. States she is at the point she can't even have people over. 02/25/22: 1. Pt presents for telehealth video/phone conference. Verbal consent witnessed by Yun Reagan (MA) and Ivette Macedo (provider).2. Pt presents for 2 week f/u on medication change. Pt states no problems with starting the abilify, but hasn't really noticed any improvement in her depression sx yet.3. Pt states she is feeling like she is getting sick. States she has been congested, had a cough, sore throat. No improvement with Mucinex or otc allergy meds. States she has been having nausea for the past few days. 02/11/22: 1. Pt in office with for 4 week f/u on chronic post-covid sx. Pt states she has a mental status exam next week that was ordered by disability people.2. Pt states propranolol helps some with shakes and tremors, but states her whole body will jerk around.3. Pt states she is taking desvenlafaxine 100mg daily. States there have been times when she hasn't been taking it d/t nausea sx and thought it might be cause of her neuro sx. Pt states she is tired all the time, has no motivation. States she has been back on it consistently for a few months.4. Pt states she just took her last dose of Emgality and is waiting for approval for Botox from insurance carrier. Pt states she is also concerned about taking the Botox since she has autoimmune disease and takes hydroxychloroquine. 01/12/22: 1. Pt in office for 4 week f/u on chronic post-covid sx.2. Pt and report that she has been approved for Botox injections for her migraines. States she isn't sure about switching from Emgality to the Botox.3. States she doesn't know if she wants to see Dr. Tanmay Sánchez again b/c he hasn't treated anyone with long covid. States he tells her that her memory issues and head jerking are s/e of her antidepressant medication. Pt states the propranolol helps with the tremors. 12/01/21: 1. Pt in office with for 4 week f/u appt. Pt states she saw neuro and the plan is to continue with Emgality until she can be started on Botox injections for her headaches.2. Pt reports she hasn't really been taking the propranolol b/c she has been having a lot of nausea and stomach upset. States it got so bad she went to the ER, but there was no issue found. States they sent her home with nausea meds.3. Pt states no improvement in her post-covid symptoms. States neuro started her on propranolol for the tremors and headaches. 11/03/21: 1. Pt in office with for f/u appt. Pt and state they have their appt with the neuro for 2nd opinion next week. Has appt with disability doctor in November. Pt states she is hoping to get more answers with the new neuro provider. states her biggest complaints from the neurological issues. States she has cycles of nausea, intestinal problems, pressure in her head, disorientation, tremors.2. Pt states the injections help somewhat with the headaches, but states it seems to wear off pretty quickly.3. Pt states her newest sx is waking up feeling panicky. States it seems to set off the headaches, tremors, and pressure in her head. States she feels like she has covid brain constantly. States she has trouble with her short-term memory. States she is unable to drive anymore. States she doesn't leave the house b/c of the tremors. States it gets set off by over stimulation. 10/06/21: 1. Pt. states she is here for her monthly follow-up for post-covid syndrome. No improvement in symptoms. She has been taking Claritin twice daily.2. States she is having more joint pain on her left side (hip down the leg), which she attributes to a flare up of her RA.3. Tremors are not improved. States she has not followed up with neurology yet.4. Headaches slightly improved with emgality. States she still has to take otc pain reliever's as well on some days to get rid of headaches. 09/08/21: 1. Pt in office with for f/u on chronic post-covid sx. No improvement in sx. Pt states she isn't able to function well enough to go back to work. States she is currently on long-term disability, but recently received call from the HR dept at her job asking when she is coming back to work.2. Pt states the tremors/twitches haven't really improved. Pt states the sx come/go. Seems to be worse when she goes out of the house. States this seemed to have started after her second bout of covid earlier this year. Also had shingles immediately after. states the only thing that seems to help is thc.3. Pt states she didn't receive all of her Emgality with the last fill. States she only received 1 injection (100mg) instead of 3 syringes (total 300mg). 08/11/21: 1. Pt in office with for f/u on chronic covid 19 sx. Pt states she hasn't started taking the higher dose anti-histamines yet, states she still isn't sure it will work. Pt states she is still struggling with the fatigue, brain fog, dizziness, daily HAs with light sensitivity. Gets a little improvement with Emgality, but still having to take otc pain relievers every day.2. Pt states she is in the process of applying for permanent disability. States she has an admitted attorneys assisting.3. Pt and report that her tremors are better since last visit. 07/14/2021: 1. Pt is a 46yo female presenting to the office for follow up s/p COVID 19 infection. Has autoimmune disease, has tried taking Benadryl to assist with post-COVID syndrome - doesn't help much, also made headaches in the morning worse, but this was before starting Emgality. Had COVID 19 again in May 2021, which triggered second Shingles flare, same spot as the first time. Both have resolved.2. Had an episode of shaking/tremors. First episode started with hands, then progressed to involve entire body. Episodes have progressively gotten worse. Patient reportedly mostly coherent during episode, eyes roll back. Reports speaking with neurologist and walking in their office - was told possibly hypoglycemia. Patient's partner has video of episode. Patient reports that during episode she is unable to lift leg. 06/05/21: 1. Pt presents for telehealth video/phone conference. Verbal consent witnessed by medical reimbursement manager name (MA) and Ivette Macedo (provider).2. Pt states she is feeling like she is coming down sick . States she has a cough, body aches, fever. Worried that it could be flu or covid b/c is back at work. States son and are both sick as well.3. Pt states abd pain is better, but still present. Still having some vaginal bleeding. Reports she hasn't gotten call to schedule with isotope technologist provider.4. Pt states she has an upcoming appt with neuro to address the chronic headaches. States sx still aren't improving, and have gotten a little worse with most recent URI sx. 05/08/21: 1. Pt in office with for 4 week f/u appt. Pt states she still has HAs everyday all day. Pt states she now also has ringing in her ears. Pt states still having fatigue, muscle pain. States she feels like she gets new sx constantly.2. Pt c/o having awful pain in the lower part of her stomach, cramping, and bleeding heavily since [facility]. States she had a uterine ablation years ago and normally has very little bleeding. Pt states pain doubles her over. Getting minimal improvement with otc Midol, heating pad use. 04/10/21: 1. Pt in office with for 4 week f/u appt. Pt states nothing has changed with her post covid sx. Pt states she is still feeling severely tired, having brain fog, weakness, poor memory, vision issues, headaches. States she is still unable to drive most of the time.2. Pt c/o having sore spots on her legs/arms and thinks she might be developing fibromyalgia. States she was previously on duloxetine and felt like it just made her cry, so she was only on it for a couple of months.3. Pt states they are still waiting for Emgality approval for the higher dose. 03/13/21: 1. Pt in office with for 4 week f/u appt. Pt states she feels like she just isn't getting better at all . Pt states she feels like she had covid again in January b/c her son was sick and she had loss of taste, sore tongue, and a cough. States the at-home test was negative. pt sttes she is at the point that she feels like she is never going to improve. Pt states she is angry b/c her life is so different now.2. Pt states she saw neuro on 02/11/21. Pt states she is still going to be on the topiramate and emgality for the headaches, but states she is still having sharp stabbing headaches. Reports neuro added gabapentin and meclizine. Pt states she had another day recently that her had to help her walk again b/c her legs were too weak. States she is still getting sensitivity to light/sound, but won't have a headache. Pt states her skin on her legs/arms on the outsides are even tender to touch. Pt states neuro found that she has nystagmus and believes that's what's causing her to have trouble reading and other vision issues.3. Pt states her tongue is still weird . States it feels like it did when she had covid. States it feels like it's scorched.4. Pt states she wasn't able to do her PT/OT b/c she wasn't able to walk.5. Pt states she saw cardiology (Dr. Davis) and was told that her cholesterol is high and that she now has copd. Pt states she had a stress test, pfts, holter monitor. States she was started on cholesterol medication and is supposed to have a cxr. States he told her to f/u in a year. 02/10/21: 1. Pt in office with for 4 week f/u appt. Pt states she isn't able to fill out forms on her own. States she is struggling with her memory and vision. states her cognitive function is delayed. Pts states she has an appt with neuro tomorrow and is having a stress test b/c it was recommended by cardiology.2. Pt states she isn't having any issues with the hydroxychloroquine.3 . Pt c/o having pain in her left shoulder that radiates down her arm.4. Pt states that headaches are improved with Emgality, but she is still having headaches daily. Still taking topiramate, but not getting full relief. Pt states the week before she is due for the next Emgality injection. 01/02/21: 1. Pt in office for 4 week f/u appt. Pt states she is still struggling with the headaches. States no improement with topiramate increase.2. Pt also c/o having constant GI issues. States lots of diarrhea, not improved by omeprazole and probiotic. Pt reports GI sx improved a little in the past with removal of gallbladder, but seems to have gotten worse lately. States she gets a bad pain in her abd and has to run to the bathroom.3. Pt states he hasn't noticed any change in any of her sx with resumption of hydroxychloroquine.4 . Pt states she hasn't gotten a call from cardiology to schedule an appt to evaluate heart function. 12/05/20: 1. Pt in office for f/u on post-covid sx. Pt states that there has been no improvement in her sx since last visit. states she is actually doing worse. Pt now c/o having vision changes and is very afraid to drive. Pt states she hasn't gotten a call to schedule appt with neuro.2. Pt states she saw her mechanical expert and had updated labs done. States they didn't make a recommendation for her to get back on autoimmune meds. Sharita De La Paz MD [address] [place] [address], [facility] [address], [place], [address], [facility] [employer] 06/21/2023 11:38:41 09/20/2023 text/html she is taking lorazepam as prescribed, finds it helpful no selling/lending/jamarcus ing, no heavy etoh or illegal drug Sharita De La Paz MD [address] [facility] [address], [place] [address], [place], [address], [facility] [employer] [employer] [facility] 10/09/2023 15:19:46 03/23/2024 text/html pt is here for f/u Patrick wells [employer]OCK [employer] [address] [facility], [place] [address], [place], [address], [facility] 03/23/2024 11:41:23 OBGyn Episode No OBEpisode recorded.
--- OUTSIDE RECORDS SUMMARY | 2024-06-22 10:45 | XMS_ITS | Referral Summary ---
Author Organization [facility] [employer] Address [address] [place] [address] Care Team Providers Care Quality Assurance Calibrator Name Role Phone Sharita De La Paz MD Primary Care Provider [phone] Source Comments [facility] [employer],non-owned Affiliates and Associated Physician Practices is amultiple site organization consisting of ambulatory clinics and hospital sitesin [place], [place], [place] and [place]. This disclosure is being madepursuant to the Care Everywhere program and may not contain all information available regarding this patient. Last updated 18.[facility] [employer] Allergies No known active allergies Medications * [...] 0.25 ML IM 9,03/04/2016 INFLUENZA VACCINE 02/20/2018 Social History Tobacco Use Types Packs/Day Years [...] Blood Pressure 121/74 07/06/2021 10:40 AM COATING OPERATOR Pulse 81 07/06/2021 10:40 AM COATING OPERATOR Temperature 36.4 ??C (97.6 ??F) 07/06/2021 10:[address] Respiratory Rate 18 10/27/2016 9:40 AM CDT Oxygen Saturation 99% 02/11/2021 8:31 AM CDT Inhaled Oxygen Concentration - - Weight 78.9 kg (174 lb) 07/06/2021 10:40 AM COATING OPERATOR Height 167.6 cm (5' 6 ) 07/06/2021 10:40 AM COATING OPERATOR Body Mass Index 28.08 07/06/2021 10:40 AM COATING OPERATOR Plan of Treatment Not on file Procedures Procedure Name Priority Date/Time Associated Diagnosis Comments COMPREHENSIVE METABOLIC PANEL Routine 11/12/2020 11:06 AM CDT Polyarthralgia HEPATITIS C ANTIBODY Routine 06/25/2014 9:23 AM COATING OPERATOR from Last 3 Months or Most Recently [...] 29 U/L [facility] Comment: Test Performed at: [facility] [address] [place], [place] ??[address] AMADEO GONZALES DO,MPH Blood BLOOD SPECIMEN / Unknown 11/12/2020 11:06 AM CDT 11/12/2020 11:08 AM CDT Jay Patel MD LAB - CHEMISTRY RACHEAL TOR[facility] [address] [place] [address] * HEPATITIS C ANTIBODY (06/25/2014 9:23 AM COATING OPERATOR) Pathologist [facility] [place] Hepatitis C Antibody NON-REACTI VE NON-REACT [facility]EL[facility] ([facility]) Signal/Cutoff 0.01 <1.00 [facility] ([facility]) Comment: Test Performed at: [facility] [address] [place], [place] ??[phone] AMADEO GONZALES DO,MPH Blood specimen (specimen) BLOOD SPECIMEN / Unknown 06/25/2014 9:23 AM COATING OPERATOR 06/25/2014 9:23 AM COATING OPERATOR Khushbu Gan MD LAB - CHEMISTRY ORD ERABLES [facility] ([facility]) from Last 3 Months or Most Recently Relevant to Health Maintenance Care Teams Quality Assurance Calibrator Relationship Specialty Start Date End Date Sharita De La Paz MD [address] [place] [address] [place] [id number] PCP - General 01/29/15
--- OUTSIDE RECORDS SUMMARY | 2024-06-22 10:46 | XMS_ITS | CONTINUITY OF CARE DOCUMENT ---
Author Name bina curran Address Unknown Organization [facility] Address [address] [place] [address] Phone [phone] Care Team Providers Care Ug Designer Name Role Phone Susan VALERIO, Sunny Unavailable [phone] [employer], DELORA Unavailable [phone] PÉ[employer]ATE, DELORA Unavailable PROBLEMS Condition Status Date Provider Notes Dizziness active Juan Adame COPD active Sunny Davis MD Hypertriglyceridemia active Sunny Arango IRON DEFICIENCY active Sunny Davis MD Hyperlipidemia;with high crp active Sunny Davis MD Screening active Sunny Davis MD Diastolic dysfunction active Neisha pearson NP Rheumatoid arthritis, chronic active Neisha Ricci NP covid ;apr 2020;had vaccine active Sunny Davis MD Depression / anxiety active Neisha Ricci NP Tobacco use, quit active Neisha Ricci NP B12 deficiency active Sunny Davis MD nml foalte Over weight active Neisha Ricci NP ENCOUNTERS Date Type Provider Location Encounter Diag nosis - In-person encounter Office Visit Sunny Davis MD [facility] covid ;apr 2020;had [id number] deficiency - In-person encounter Office Visit Sunny Davis MD [facility] ScreeningDiastolic dysfunctionRheumatoid arthritis, chroniccovid ;apr 2020;had vaccineDepression / anxietyTobacco use, quitB12 deficiencyOver weight VITAL SIGNS Date Observation Value Provider Body Mass Index (Ratio) 27.92 kg/m2 Jordyn Davis MD blood pressure, cuff size regular Cy navdeep Saldaña blood pressure, diastolic 78 mm[Hg] Cy ntshanta Saldaña blood pressure, systolic 122 mm[Hg] Lavinia pastora Piotr oxygen saturation, oximetry 98 % Neisha Piotr respiratory rate E&M 16 /min Neisha Saldaña pulse rate 84 /min Neisha Denzelbel el weight E&M 173 [lb_av] Neisha Campbel l height E&M 66 [in_i] Neisha Campbel l weight E&M 167 [lb_av] Seth giordano Body Mass Index (Ratio) 26.95 kg/m2 Jordyn Davis MD blood pressure, diastolic 80 mm[Hg] Karen nkLogdat blood pressure, systolic 124 mm[Hg] Fela kLogdat blood pressure, resting No Cynt shanta Saldaña pulse rate 98 /min Neisha Mahoneybel el oxygen saturation, oximetry 97 % Neisha Saldaña respiratory rate E&M 16 /min Neisha Saldaña blood pressure, cuff size regular Cy navdeep Saldaña blood pressure, diastolic 80 mm[Hg] Cy ntshanta Saldaña blood pressure, systolic 124 mm[Hg] Lavinia pastora Saldaña weight E&M 167 [lb_av] Neisha Denzelbel l height E&M 66 [in_i] Neisha Campbel l ALLERGIES No Known Drug Allergies RESULTS Date Observation Value Provider Reference Range Interpretation Location 3 D-dimer quantitative mcg/mL 0.32 MG/L FEU [facility] 0.00-0.49 3 ferritin, serum 89 ng/mL [facility] 15-150 3 pro brain natriuretic peptide 86 pg/mL [facility] 0-249 3 c-reactive protein, quantitative, serum 6.84 mg/L [facility] 0.00-3.00 High 3 iron saturation percent, serum 35 % [facility] 15-55 3 iron, serum 105 ug/dL [facility] 27-159 3 iron binding capacity, unsaturated 195 ug/dL [facility] 493-395 9721/09/2 3 iron binding capacity, total 300 ug/dL [facility] 288-757 1666/09/2 3 lipoprotein, beta, serum, point, quantitative, calculated 140 mg/dL [facility] 0-99 High 3 HDL cholesterol, serum 41 mg/dL [facility] >39 3 triglyceride, serum, random 328 mg/dL [facility] 0-149 High 3 cholesterol, serum 241 mg/dL [facility] 100-199 High 3 basophil count, absolute 0.1 x10E3/uL [facility] 0.0-0.2 3 Eosinophil Absolute Count 0.2 X10E3/UL [facility] 0.0-0.4 3 monocyte count, blood, automated 0.6 X10E3/UL [facility] 0.1-0.9 3 lymphocyte count, blood, automated 3.2 X10E3/UL [facility] 0.7-3.1 High 3 Absolute Neutrophils 7.5 X10E3/UL [facility] 1.4-7.0 High 3 basophils as percent of blood leukocytes 1 % [facility] Not Estab. 3 eosinophils as percent of blood leukocytes 2 % [facility] Not Estab. 3 monocytes as percent of blood leukocytes 5 % [facility] Not Estab. 3 lymphocytes as percent of blood leukocytes 27 % [facility] Not Estab. 3 neutrophils as percent of blood leukocytes 64 % [facility] Not Estab. 3 platelet count 297 X10E3/UL [facility] 912-195 5703/09/2 3 red blood cell distribution width 11.7 % [facility] 11.7-15.4 3 mean corpuscular hemoglobin concentration, RBC 34.7 G/DL [facility] 31.5-35.7 3 mean corpuscular hemoglobin, RBC 32.1 pg [facility] 26.6-33.0 3 mean corpuscular volume, RBC 93 fL [facility] 79-97 3 hematocrit, blood 44.7 % [facility] 34.0-46.6 3 hemoglobin, blood 15.5 g/dL [facility] 11.1-15.9 3 erythrocyte (RBC) count 4.83 X10E6/UL [facility] 3.77-5.28 3 leukocyte count, blood 11.8 X10E3/UL [facility] 3.4-10.8 High 3 alanine aminotransferase (SGPT), serum 22 1/L [facility] 0-32 3 aspartate aminotransferase (SGOT), serum 19 1/L [facility] 0-40 3 alkaline phosphatase, serum 83 1/L [facility] 44-121 3 bilirubin, serum, total <0.2 mg/dL [facility] 0.0-1.2 3 albumin/globulin ratio, serum 2.2 [facility] 1.2-2.2 3 globulin, serum 2.3 [facility] 1.5-4.5 3 albumin, serum 5.0 g/dL [facility] 3.8-4.8 High 3 protein, total, serum 7.3 g/dL [facility] 6.0-8.5 3 calcium, serum 10.3 mg/dL [facility] 8.7-10.2 High 3 carbon dioxide, venous blood 17 mmol/L [facility] 20-29 Low 3 chloride, serum 102 mmol/L [facility] 96-106 3 potassium, serum 4.4 mmol/L [facility] 3.5-5.2 3 sodium, serum 139 mmol/L [facility] 875-987 2078/09/2 3 urea nitrogen/creatinine ratio, serum 11 [facility] 9-23 3 eGFR if 114 mL/min/{1 .73_m2} [facility] >59 3 eGFR if not 99 mL/min/{1 .73_m2} [facility] >59 3 creatinine, serum 0.73 mg/dL [facility] 0.57-1.00 3 urea nitrogen, blood 8 mg/dL [facility] 6-24 3 blood glucose, random 86 mg/dL [facility] 65-99 HISTORY OF MEDICATION USE Medication Status Instructions Dates Provider Indications Com ments topiramate 100 mg tablet active Sunny Davis MD gabapentin 100 mg capsule active Sunny Davis MD Crestor 20 mg tablet completed Take 1 tabl et by mouth once a day Take 1 tablet by mouth once daily - Sunny Davis MD Ferrex 150 150 mg iron capsule completed Take 1 capsule by mouth once a day - Sunny Davis MD cyanocobalamin (vitamin B-12) 1,000 mcg capsule completed Take 1 capsule by mouth every morning - Neisha Ricci NP clonazepam 0.5 mg tablet active Take 1 tablet by mouth twice a day Neisha Ricci NP Pristiq 100 mg tablet extended release 24 hr active Take 1 tablet by mouth once a day Neisha Ricci NP hydroxychloroquine 200 mg tablet active Take 1 tablet by mouth twice a day Neisha Ricci NP Emgality Pen 120 mg/mL pen injector active Inject 1 pen injector subcutaneously once a week Neisha Ricci NP SOCIAL HISTORY Date Observation Value Provider social history E&M S moking History: Gato amaya is a former smoker. Sunny Davis MD social history reviewed E&M revi ewed - no changes required Sunny Davis MD smoking history, tot al pack/day 1 PPD Neisha Saldaña cigarette use yes Neisha Amandeep liao smoking status Former smoker Neisha crain quit smoking, stage quit Neisha Power brigitte OWUSU smoking history, tot al pack/day 1 PPD Neisha Saldaña cigarette use yes Neisha Bernstein yanni smoking status Former smoker Neisha crain FAMILY HISTORY Family Member Condition Mother Family History of Di abetes: INSURANCE PROVIDERS Payer name Policy type / Coverage type [place] red republican ID [id number] 1 ADVANCE DIRECTIVES Name Date DISCUSSED - NO DECISION MADE TREATMENT PLAN Date Name Performer [id number],SSunny MD [id number],SSunny MD [id number],SSunny MD [id number],BSunny MD [id number],SSunny MD [id number],S,pro86 Sunny Davis MD [id number],SSunny MD [id number],BSunny MD [id number],S,n eg hotler and vi td n eg dd and treadmill and andnml tsh m ri josh neg per pt Sunny Davis MD [id number],SSunny MD [id number],C,neg dd and tr eadmill and pro 85 Sunny Davis MD [id number],C,neg treadmill Sunny Davis MD [id number],S, Neisha vora COOK MORNING [id number],S,follows Socrates pauletteanton @ [facility] Neisha Ricci COOK MORNING [id number],S,EF 72 % mild diastolic dysfunction Neisha Ricci UMER Cardiology follow up Sunny dc MD Cardiology follow up Sunny dc MD Cardiology follow up Sunny dc MD Cardiology follow up Sunny dc MD Cardiology follow up Sunny dc MD Cardiology follow up :pro86 Jordyn Davis MD Cardiology follow up Sunny dc MD Cardiology follow up Sunny dc MD Cardiology follow up :neg hotler and vi td n eg dd and treadmill and andnml tsh m ri josh neg per pt Sunny Davis MD Cardiology follow up Sunny dc MD :neg dd and treadmill and pro 85 Sunny Davis MD :neg treadmill Sunny Davis MD Cardiology New Patient Neisha gray UMER Cardiology New Patient :follows [email or web address] @ [facility] Neisha Ricci COOK MORNING Cardiology New Patie nt :EF 72 % mild diastolic dysfunction Neisha Ricci UMER Date Name CXR- PA/Lat CT, Coronary Calcium Score DLCO - 50202 FRC - 56079 FVC - 49967 D-DIMER, QUANTITATIV E PROBNP, N TERMINAL DLCO - 46211 FRC - 63337 FVC - 70801 CXR- PA/Lat Holter Monitor 24 Hr COMPREHENSIVE METABO LIC PANEL, W/EGFR LIPID PANEL C-REACTIVE PROTEIN IRON AND TOTAL IRON BINDING CAPACITY FERRITIN CBC (INCLUDES DIFF/P LT) CT, Coronary Calcium Score Stress Routine HISTORY OF PROCEDURES Procedure Date Procedure Name Provider Procedure Notes S tatus Holter, 24 or 48 Sunny Davis MD co mpleted EKG Sunny Davis MD complete d
[2024-06-22 10:54] LABS: Basophils Absolute Auto 0.1 K/mm3 (0.0-0.1); Basophils Percent Auto 0.5 % (0.2-1.2); Eosinophils Absolute Auto 0.2 K/mm3 (0-0.3); Eosinophils Percent Auto 1.5 % (0-4.4); Hematocrit 47.4 % (37.0-47.0); Hemoglobin 16.6 g/dL (12.0-15.0); Immature Granulocyte Absolute 0.05 K/mm3 (0.00-0.031); Immature Granulocyte Percent A 0.4 % (0-0.5); Lymphocytes Absolute Auto 3.24 K/mm3 (0.9-3.2); Mean Corpuscular Hemoglobin 31.7 pg (26-34); Mean Corpuscular Volume 90.5 fl (80-100); Mean Platelet Volume 10.2 fl (7.4-10.4); Monocytes Absolute Auto 0.6 K/mm3 (0.1-0.6); Monocytes Percent Auto 5.4 % (2.6-8.5); Neutrophils Absolute Auto 7.4 K/mm3 (1.3-6.7); Neutrophils Percent Auto 64.2 % (45.5-73.1); Platelet Count Result 243 k/mm3 (150-375); Red Blood Count 5.24 M/mm3 (4.2-5.4); Red Cell Distribution Width 11.7 % (11.5-14.5); White Blood Count 11.6 K/mm3 (4.5-10.0)
[2024-06-22 12:45] LABS: Anion Gap 13 mmol/L (4-12); Blood Urea Nitrogen 14 mg/dL (7-17); Calcium 10.3 mg/dL (8.4-10.2); Carbon Dioxide 22 mmol/L (22-30); Chloride 106 mmol/L (98-107); Estimated Glomerular Filt Rate > 60; Glucose 89 mg/dL (65-110); Potassium 4.2 mmol/L (3.4-5.0); Sodium 141 mmol/L (137-145)
== END 2024-06-22 10:39 | disposition home or self-care (01) ==
PROVIDERS: PCP Nurse Practitioner Family; Visit Provider Internal Medicine Hematology & Oncology
DX: D72.829 Elevated white blood cell count, unspecified (principal)
CPT/HCPCS: 36415; 80048; 85025

== ENCOUNTER 2024-10-18 12:41 | Outpatient (CLI) | payer BC, MEDICARE, SELFPAY ==
--- OUTSIDE RECORDS SUMMARY | 2024-10-18 12:47 | XMS_ITS | Clinical Summary ---
Author Organization [facility] Address [address] [place] [address] Care Team Providers Care Envelope Folder Name Role Phone Unavailable Primary Care Provider Unavailabl e Allergies No known active allergies Medications LORazepam (ATIVAN) 0.5 mg tablet Take 0.5 mg by mouth every 4 hours as needed for Other (See Comment). Active Active Problems No known active problems Encounters Date Type Department Care Team Description 10/11/2024 External Device Data STL ABSTRACTION Provider, Abstract 10/10/2024 External Device Data STL ABSTRACTION Provider, Abstract 10/09/2024 External Device Data STL ABSTRACTION Provider, Abstract 09/26/2024 Abstract [facility] Oncology and Hematology - [place] [address] [address] Malik Ko MD 09/04/2024 External Device Data STL ABSTRACTION Provider, Abstract 08/08/2024 External Device Data STL ABSTRACTION Provider, Abstract 08/01/2024 External Device Data [facility] ABSTRACTION Provider, Abstract 07/31/2024 External Device Data STL ABSTRACTION Provider, Abstract 07/28/2024 External Device Data STL ABSTRACTION Provider, Abstract 07/27/2024 External Device Data STL ABSTRACTION Provider, Abstract 07/25/2024 External Device Data STL ABSTRACTION Provider, Abstract [...] 1 07/04/1999 - 05/03/2020 Smokeless Tobacco: Never Tobacco Cessation:Counseling Given: Not Answered Alcohol Use Standard Drinks/Week Comments Not Currently 0 (1 standard drink = 0.6 oz pur e alcohol) Comments Unknown Sex and Gender Information Value Date Recorded Sex Assigned at Not on file Legal Sex Female 5:46 PM SEISMIC SURVEY ASSISTANT Gender Identity Not on file Sexual Orientation Not on file Last Filed Vital Signs Vital Sign Reading Time Taken Comments Blood Pressure 110/74 07/06/2024 11:37 AM SEISMIC SURVEY ASSISTANT Pulse 75 07/06/2024 11:37 AM SEISMIC SURVEY ASSISTANT Temperature 35.9 C (96.7 F) 07/06/2024 11:37 AM SEISMIC SURVEY ASSISTANT Respiratory Rate 14 07/06/2024 11:37 AM SEISMIC SURVEY ASSISTANT Oxygen Saturation 97% 07/06/2024 11:37 AM SEISMIC SURVEY ASSISTANT Inhaled Oxygen Concentration - - Weight 68 kg (150 lb) 07/06/2024 11:37 AM SEISMIC SURVEY ASSISTANT Height 167.6 cm (5' 6) 01/12/2024 10:19 AM CDT Body Mass Index 24.21 01/12/2024 10:19 AM CDT Plan of Treatment Upcoming Encounters Date Type Department Care Team (Late st Contact Info) Description 11/09/2024 11:15 AM CDT Office Visit [facility] Oncology and Hematology - [place] [address] [facility] [address] [place] [address] Malik Ko MD [address] [facility] [address] [place] [address] Health Maintenance Due Date Last Done Comments HEPATITIS B VACCINES (1 of 3 - 19+ 3-dose series) 1993 ZOSTER VACCINE (1 of 2) 1993 HPV/Cotest (21-29) 1995 CERVICAL CANCER SCREENING 2004 HPV/Cotest (30-65) 2004 PAP SMEAR 2004 FIT-DNA Q 3 years 2019 FIT/FOBT Q 1 year 2019 Flex Sig/CT Colonography Q 5 years 2019 INFLUENZA VACCINE (#1) 2023 , 04/26/2019, 03/04/2016, Additional history exists Lung Cancer Screening 2024 BREAST CANCER SCREENING 05/18/2025 05/18/2024 DTAP/TDAP/TD VACCINES (2 - T d or Tdap) 12/30/2026 12/30/2016 COLORECTAL SCREENING 02/02/2034 02/03/2024 Colorectal Cancer Screening 02/02/2034 Procedures Procedure Name Priority Date/Time Associated Diagnosis Comments MAMMO SCREENING BILAT Routine 05/18/2024 8:16 AM SEISMIC SURVEY ASSISTANT from Last 3 Months or Most Recently Relevant to Health Maintenance Results * MAMMO SCREENING BILAT (05/18/2024 8:16 AM SEISMIC SURVEY ASSISTANT) Anatomical Region Laterality Modality Breast Bilateral Mammography Malik Ko MD MAMMO ORDERABLES Final Result from Last 3 Months or Most Recently Relevant to Health Maintenance Insurance MEDICARE PART A AND B BC [facility]
--- OUTSIDE RECORDS SUMMARY | 2024-10-18 12:47 | XMS_ITS | Encounter Summary ---
Author Organization [facility] Address [address] [place] [address] Care Team Providers Care County Judge Name Role Phone Sharita De La Paz MD Primary Care Provider [phone] Reason for Visit * Reason Onset Date Comments MEDICATION REFILL 03/15/2019 Encounter Details Date Type Department Care Team (Late st Contact Info) Description 03/15/2019 Refill [facility] Pediatrics - Rheumatology [address] [place] [address] Khushbu Gan MD [address] [facility] 5th [place] [phone] MEDICATION REFILL Social History Tobacco Use Types Packs/Day Years Used Date Smoking Tobacco: Every Day Cigarettes Smokeless Tobacco: Never Alcohol Use Standard Drinks/Week Comments No 0 (1 standard drink = 0.6 oz pur e alcohol) Comments No Sex and Gender Information Value Date Recorded Sex Assigned at Not on file Legal Sex Female 5:13 PM CLIENT CARE REPRESENTATIVE Gender Identity Not on file Sexual Orientation [...] medications documented in this encounter Care Teams County Judge Relationship Specialty Start Date End Date Sharita De La Paz MD [address] [place] [address] [place] [address] PCP - General 01/29/15 documented as of this encounter
--- OUTSIDE RECORDS SUMMARY | 2024-10-18 12:47 | XMS_ITS | Encounter Summary ---
Author Organization [facility] Address [address] [address] Care Team Providers Care Conduit Cleaner Name Role Phone Sharita De La Paz MD Primary Care Provider [phone] Reason for Visit * Reason Onset Date Comments MEDICATION REFILL 03/14/2019 Encounter Details Date Type Department Care Team (Late st Contact Info) Description 03/14/2019 Refill [facility] Pediatrics - Rheumatology [address] [place] [address] Khushbu Gan MD [address] [facility] 5th [place] [phone] MEDICATION REFILL Social History Tobacco Use Types Packs/Day Years Used Date Smoking Tobacco: Every Day Cigarettes Smokeless Tobacco: Never Alcohol Use Standard Drinks/Week Comments No 0 (1 standard drink = 0.6 oz pur e alcohol) Comments No Sex and Gender Information Value Date Recorded Sex Assigned at Not on file Legal Sex Female 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 [address] PCP - General 01/29/15 documented as of this encounter
--- OUTSIDE RECORDS SUMMARY | 2024-10-18 12:47 | XMS_ITS | Clinical Summary ---
Author Organization [facility] Address [address] [place] [address] Phone Care Team Providers Care Erp Developer Name Role Phone Ivette Maceod APRN, FIRER HELPER Primary Care Provider Jcarlos Bentley MD Unavailable [phone] Allergies No known active allergies Medications ARIPiprazole [...] 79 08/16/2022 10:25 AM CDT Temperature 36.2 C (97.2 F) 08/16/2022 10:25 AM CDT Respiratory Rate 18 08/16/2022 10:2 5 AM CDT Oxygen Saturation 87% 08/16/2022 10: 25 AM CDT Inhaled Oxygen Concentration - - Weight 81.5 kg (179 lb 11.2 oz) 023 10:25 AM CDT Height 167.6 cm (5' 6) 08/16/2022 10:2 5 AM CDT Body Mass Index 29 08/16/2022 10:25 AM CDT Plan of Treatment Health Maintenance Due Date Last Done Comments Hepatitis C Virus (HCV) Screening 1974 Mammogram 1974 Hepatitis B Immunization (1 of 3 - 19+ 3-dose series) 1993 Pap Smear 1995 Cervical Cancer Screening (CCS) 2004 HPV/Cotest 2004 Colonoscopy 2019 Colorectal Cancer Screening 2019 Influenza Immunization (#1) 01/22/202403/23, 04/26/2019, 02/20/2018, Additional history exists SARS-COV-2 Immunization ( season) 2024 11/07/2020, 10/10/2020 Cologuard 2024 Immunochemical Fecal Occult Blood 2024 Pneumococcal Immunization (50+ years) (2 of 2 - PCV) 2024 09/01/2011 Zoster Immunization (1 of 2) 2024 Respiratory Syncytial Virus (RSV) Immunization (Adult) (1 - 1-dose 75+ series) 2049 Pneumococcal Immunization Combined Discontinued 09/01/2011 DTaP/Tdap/Td Immunization Discontinued 12/30/2016 TdaP Immunization Completed 12/30/2016 Meningococcal Immunization (ACWY) Aged Out No longer eligible based on patient's age to complete this topic Rotavirus Immunization Aged Out No lo nger eligible based on patient's age to complete this topic Insurance [facility] Care Teams Erp Developer Relationship Specialty Start Date End Date Ivette Macedo, MECHANISM INSPECTOR, FIRER HELPER [address] [place] [address] PCP - General Certified Nurse Practitioner 05/19/22 Jcarlos Bentley MD [address] [place] [address] Consulting Physician Neurology 08/16/22
--- OUTSIDE RECORDS SUMMARY | 2024-10-18 12:47 | XMS_ITS | Clinical Summary ---
Author Organization [facility] Address [address] [place] [address] Care Team Providers Care Front End Engineer Name Role Phone Sharita De La Paz MD Primary Care Provider [phone] Source Comments [facility]non-owned Affiliates and Associated Physician Practices is amultiple site organization consisting of ambulatory clinics and hospital sitesin [place], [place], [place] and [place]. This disclosure is being madepursuant to the Care Everywhere program and may not contain all information available regarding this patient. Last updated 18.[facility] Allergies No known active allergies Medications * Be aware that medications may not be up to date on this document. Alwaysverify current medications with the patient. clonazePAM (KLONOPIN) 0.5 MG tablet Take 0.5 mg by mouth 2 times daily 2 03/22/20 18 Active desvenlafaxine succinate ER 24hr (PRISTIQ) 100 MG tablet Take 100 mg by mouth once daily Active Galcanezumab-gnlm (EMGALITY) 120 MG/ML SOSY Active hydroxychloroquine (PLAQUENIL) 200 MG tablet Take 200 mg by mouth 2 times daily Active cyanocobalamin (VITAMIN B-12) 1000 MCG tablet Take 1,000 mcg by mouth once daily Active meclizine (ANTIVERT) 25 MG tabletIndications:B enign paroxysmal positional vertigo, unspecified laterality Take 1 (one) tablet by mouth 2 times daily 180 tablet 3 02/12/20 21 Active iron polysaccharides (NIFEREX 150) 150 MG capsule 02/13/20 21 Active rosuvastatin (CRESTOR) 20 MG tablet rosuvastatin 20 mg tablet TAKE 1 TABLET BY MOUTH EVERY DAY 02/13/20 21 Active topiramate (TOPAMAX) 100 MG tablet Take 100 mg by mouth 2 times daily Active gabapentin (NEURONTIN) 300 MG capsuleIndications: Chronic tension-type headache, intractable Take 1 (one) capsule by mouth 3 times daily 270 capsule 3 07/06/19 22 Active Active Problems Problem Noted Date Diagnosed Date Polyarthralgia 09/21/2017 Abnormal MRI, musculoskeletal 09/21/2017 Pain in joint 03/06/2015 Low back pain 07/31/2014 Major depressive disorder, single episode 2014 Overview (08/22/2017): undercontrol with meds Immunizations Immunization Administration Dates Next Due FLU VACCINE QUAD [...] Date Recorded PHQ2 TOTAL SCORE 0 11/03/2020 Comments No Sex and Gender Information Value Date Recorded Sex Assigned at Not on file Legal Sex Female 5:13 PM GROUNDSMAN Gender Identity Not on file Sexual Orientation Not on file Last Filed Vital Signs Vital Sign Reading Time Taken Comments Blood Pressure 121/74 07/06/2021 10:40 AM GROUNDSMAN Pulse 81 07/06/2021 10:40 AM GROUNDSMAN Temperature 36.4 C (97.6 F) 07/06/2021 10:40 AM GROUNDSMAN Respiratory Rate 18 10/27/2016 9:40 AM CDT Oxygen Saturation 99% 02/11/2021 8:31 AM CDT Inhaled Oxygen Concentration - - Weight 78.9 kg (174 lb) 07/06/2021 10:40 AM GROUNDSMAN Height 167.6 cm (5' 6) 07/06/2021 10:40 AM GROUNDSMAN Body Mass Index 28.08 07/06/2021 10:40 AM GROUNDSMAN Plan of Treatment Health Maintenance Due Date Last Done Comments COLOGUARD (AGES 45-75) - COLON CA SCREENING 1974 COLON MONITORING 1974 COLONOSCOPY - COLON CA SCREENING 1974 CT COLONOGRAPHY - COLON CA SCREENING 1974 Colorectal Cancer Screening 1974 FIT - COLON CA SCREENING 1974 FLEX SIG - COLON CA SCREENING 1974 MAMMOGRAM 1974 MEDICARE AWV 12 MONTHS 1974 PAP SMEAR 1974 HIV SCREENING 1989 DTAP/TDAP/TD VACCINES (1 - Tdap) 1993 HEPATITIS B VACCINE (1 of 3 - 19+ 3-dose series) 1993 PNEUMOCOCCAL VACCINE 50+ (1 of 2 - PCV) 1993 SCREENING FOR DIABETES 11/13/2023 , 11/22/2019, 01/23/2019, Additional history exists COVID-19 VACCINE (1 - season) 2024 DEPRESSION SCREENING 05/23/2024 ZOSTER VACCINE (1 of 2) 2024 INFLUENZA VACCINE (Season Ended) 2025 04/10/2021, 04/26/2019, 02/20/2018, Additional history exists HEPATITIS C SCREENING Completed 06/25/2014 HIB VACCINE Aged Out No longer eligi ble based on patient's age to complete this topic HPV VACCINE Aged Out No longer eligi ble based on patient's age to complete this topic MENINGOCOCCAL (Group B) VACCINE SHARED DECISION-MAKING Aged Out No longer eligible based on patient's age to complete this topic MENINGOCOCCAL GROUPS A/C/Y/W VACCINE Aged Out No longer eligible based on patient's age to complete this topic Procedures Procedure Name Priority Date/Time Associated Diagnosis Comments COMPREHENSIVE METABOLIC PANEL Routine 11/12/2020 11:06 AM CDT Polyarthralgia HEPATITIS C ANTIBODY Routine 06/25/2014 9:23 AM GROUNDSMAN from Last 3 Months or Most Recently Relevant to Health Maintenance Results * (ABNORMAL) COMPREHENSIVE METABOLIC PANEL (11/12/2020 11:06 AM CDT) [facility] Glucose 78 65 - 99 mg/dL [facility] Comment: Fasting reference interval BUN 14 7 - [...] 29 U/L [facility] Comment: Test Performed at: [employer] [facility] [phone] AMADEO GONZALES DO,MPH Blood BLOOD SPECIMEN / Unknown 11/12/2020 11:06 AM CDT 11/12/2020 11:08 AM CDT Jay Patel MD LAB - CHEMISTRY ORDERABLES Final Result [facility] [address] [place] [address] * HEPATITIS C ANTIBODY (06/25/2014 9:23 AM GROUNDSMAN) [facility] Hepatitis C Antibody NON-REACTI VE NON-REACT FELIPE [facility] ([facility]) Signal/Cutoff 0.01 <1.00 [facility] ([facility]) Comment: Test Performed at: [facility] [id number] [employer] [id number] AMADEO GONZALES DO,MPH Blood specimen (specimen) BLOOD SPECIMEN / Unknown 06/25/2014 9:23 AM GROUNDSMAN 06/25/2014 9:23 AM GROUNDSMAN Khushbu Gan MD LAB - CHEMISTRY ORDERABLES Final Result [facility] ([facility]) [id number] from Last 3 Months or Most Recently Relevant to Health Maintenance Insurance [employer] MEDICARE ANTH Care Teams Front End Engineer Relationship Specialty Start Date End Date Sharita De La Paz MD [address] [place] [id number] PCP - General 01/29/15
--- OUTSIDE RECORDS SUMMARY | 2024-10-18 12:48 | XMS_ITS | Data Portability ---
Author Organization [facility] [employer], Main Office Address [address] [place] [address] Assessment No assessment recorded. Plan of Treatment Reminders Order Date Submit Date Provider Last Modified By Organization Details Last Modified Time Details Appointments Follow Up 2024 09:30A Edgar Hill NP Not available Not available Not available Lab drug of abuse panel, urine 2023 024 [facility] (Lab), [address] [place], [address], 03/23/2024 18:48:53 CBC w/ auto diff 2023 024 LILIA Not available 09/20/2023 20:33:31 calcium, ionized, blood 2023 024 LILIA Not available 09/23/2023 11:01:39 calcium, ionized, blood 2023 024 [email or web address] [...] 13:25:30 CBC w/ auto diff 2023 024 [facility] Not [facility] 06/21/2023 13:26:11 Referral None recorded. Procedures None recorded. Surgeries None recorded. Imaging None recorded. Medication Orders amoxicill in 500 mg capsule 2024 025 [id number] [address] , [place], [address], 07/03/2024 15:18:13 lorazepam 1 mg tablet 2024 025 [id number], [address] [place], [address], 07/03/2024 15:18:16 carbidopa 10 mg-levodo pa 100 mg tablet 2024 025 [id number], [address], [place], [address], 07/03/2024 15:18:14 lorazepam 1 mg tablet 2023 024 [id number], [address], [place], [address], 03/23/2024 11:40:38 trazodone 50 mg tablet 2023 [email or web address] [place], [place] [address]Pharmacy #[id number], [address] [place], [address], 07/03/2024 14:53:03 lorazepam 1 mg tablet 2023 024 [id number], [address], [place], [address], 09/20/2023 11:23:58 lorazepam 1 mg tablet 2023 024 [facility] #[id number], [address], [place], [address], 06/21/2023 11:36:37 Patient TargetsNo targets recorded. Patient InstructionsNo instructions recorded. Reason for Referral None Reported. Results Created Date Observation Date Name Description Value Unit Range Abnormal Flag Note LastModifiedBy Organization Detail LastModifiedTime 06/21/19 24 06/21/2023 CBC/C OMPLE TE BLD COUNT W/DIF F white blood cells 11.0 x10'3 /uL 4.2-10 .8 high Not Available [facility] (Lab) [address] [place], [address], 06/21/2023 20:39:58 06/21/19 24 06/21/2023 CBC/C OMPLE TE BLD COUNT W/DIF F red blood cells 5.10 x10'6 /uL 3.80-5 .20 Not Available [facility] (Lab) [address] [place], [address], 06/21/2023 20:39:58 06/21/19 24 06/21/2023 CBC/C OMPLE TE BLD COUNT W/DIF F hemoglobin 16.7 g/dL 12.0-1 5.6 high Not Available [facility] (Lab) [address] [place], [address], 06/21/2023 20:39:58 06/21/19 24 06/21/2023 CBC/C OMPLE TE BLD COUNT W/DIF F hematocrit 47.5 % 35.7-4 5.7 high Not Available [facility] (Lab) [address] [place], [address], 06/21/2023 20:39:58 06/21/19 24 06/21/2023 CBC/C OMPLE TE BLD COUNT W/DIF F mean red cell volume 93.1 fL 82.0-9 9.0 Not Available [facility] (Lab) [address] [place], [address], 06/21/2023 20:39:58 06/21/19 24 06/21/2023 CBC/C OMPLE TE BLD COUNT W/DIF F mean red cell hemoglobin 32.7 pg 27.0-3 3.0 Not Available [facility] (Lab) [address] [place], [address], 06/21/2023 20:39:58 06/21/19 24 06/21/2023 CBC/C OMPLE TE BLD COUNT W/DIF F mean RBC HGB concentratio n 35.2 g/dL 31.0-3 6.0 Not Available [facility] (Lab) [address] [place], [address], 06/21/2023 20:39:58 06/21/19 24 06/21/2023 CBC/C OMPLE TE BLD COUNT W/DIF F red cell distribution width 12.0 % 11.8-1 5.5 Not Available [facility] (Lab) [address] [place], [address], 06/21/2023 20:39:58 06/21/19 24 06/21/2023 CBC/C OMPLE TE BLD COUNT W/DIF F platelets 258 x10'3 /uL 150-40 0 Not Available [facility] (Lab) [address] [place], [address], 06/21/2023 20:39:58 06/21/19 24 06/21/2023 CBC/C OMPLE TE BLD COUNT W/DIF F mean platelet volume 11.2 fL 9.0-12 .4 Not Available [facility] (Lab) [address] [place], [address], 06/21/2023 20:39:58 06/21/19 24 06/21/2023 CBC/C OMPLE TE BLD COUNT W/DIF F neutrophils 66.0 % 39.0-7 2.0 Not Available [facility] (Lab) [address] [place], [address], 06/21/2023 20:39:58 06/21/19 24 06/21/2023 CBC/C OMPLE TE BLD COUNT W/DIF F lymphocytes 25.3 % 16.0-4 7.0 Not Available [facility] (Lab) [address] [place], [address], 06/21/2023 20:39:58 06/21/19 24 06/21/2023 CBC/C OMPLE TE BLD COUNT W/DIF F monocytes 5.9 % 5.0-12 .0 Not Available [facility] (Lab) [address] [place], [address], 06/21/2023 20:39:58 06/21/19 24 06/21/2023 CBC/C OMPLE TE BLD COUNT W/DIF F eosinophils 1.5 % 1.0-7. 0 Not Available [facility] (Lab) [address] [place], [address], 06/21/2023 20:39:58 06/21/19 24 06/21/2023 CBC/C OMPLE TE BLD COUNT W/DIF F basophils 0.8 % 0.0-2. 0 Not Available [facility] (Lab) [address] [place], [address], 06/21/2023 20:39:58 06/21/19 24 06/21/2023 CBC/C OMPLE TE BLD COUNT W/DIF F immature granulocytes 0.5 % 0.00-0 .50 Not Available [facility] (Lab) [address] [place], [address], 06/21/2023 20:39:58 06/21/19 24 06/21/2023 CBC/C OMPLE TE BLD COUNT W/DIF F neutrophils, absolute count 7.29 x10'3 /uL 1.5-8. 0 Not Available [facility] (Lab) [address] [place], [address], 06/21/2023 20:39:58 06/21/19 24 06/21/2023 CBC/C OMPLE TE BLD COUNT W/DIF F lymphocytes, absolute count 2.79 x10'3 /uL 1.07-3 .43 Not Available [facility] (Lab) [address] [place], [address], 06/21/2023 20:39:58 06/21/19 24 06/21/2023 CBC/C OMPLE TE BLD COUNT W/DIF F monocytes, absolute count 0.65 x10'3 /uL 0.29-0 .99 Not Available [facility] (Lab) [address] [place], [address], 06/21/2023 20:39:58 06/21/19 24 06/21/2023 CBC/C OMPLE TE BLD COUNT W/DIF F eosinophils, absolute count 0.17 x10'3 /uL 0.02-0 .53 Not Available [facility] (Lab) [address] [place], [address], 06/21/2023 20:39:58 06/21/19 24 06/21/2023 CBC/C OMPLE TE BLD COUNT W/DIF F basophils, absolute count 0.09 x10'3 /uL 0.01-0 .08 high Not Available [facility] (Lab) [address] [place], [address], 06/21/2023 20:39:58 06/21/19 24 06/21/2023 CBC/C OMPLE TE BLD COUNT W/DIF F immature granulocytes ,absolute 0.05 x10'3 /uL 0.00-0 .05 Not Available [facility] (Lab) [address] [place], [address], 06/21/2023 20:39:58 06/21/19 24 06/21/2023 CBC/C OMPLE TE BLD COUNT W/DIF F nucleated red blood cells 0.0 % -[address] [facility] (Lab) [address] [place], [address], 06/21/2023 20:39:58 06/21/19 24 06/21/2023 CBC/C OMPLE TE BLD COUNT W/DIF F NRBC# 0.00 x10'3 /uL Not Available [facility] (Lab) [address] [place], [address], 06/21/2023 20:39:58 06/21/19 24 06/21/2023 MAGNE SIUM magnesium 2.2 mg/dL 1.6-2. 3 Not Available [facility] (Lab) [address] [place], [address], 06/21/2023 20:41:41 06/21/19 24 06/21/2023 PARAT HY.HO RM(PT H)INT ACT-W /O CA intact parathyroid hormone 33.9 pg/mL 24.0-7 8.0 Pleas e note new refer ence range effec tive 06/18 . Not Available [facility] (Lab) [address] [place], [address], 06/21/2023 21:32:46 06/21/19 24 06/21/2023 VITAM IN B12 (SARI AVERY ) vb12 366 pg/mL 239-93 1 Not Available [facility] (Lab) [address] [place], [address], 06/21/2023 23:52:44 06/21/19 24 06/21/2023 FOLAT E, SERUM /PLAS MA folate >20.0 NG/mL 2.76-2 0.0 Not Available [facility] (Lab) [address] [place], [address], 06/21/2023 23:52:46 06/21/19 24 06/21/2023 VITAM IN D 25-HY DROXY vd25oh 42.0 NG/mL 30-100 Vitam in D Statu s: Defic ient: <20 ng/mL Insuf ficie nt: 20-29 ng/mL Suffi cient : 30-10 0 ng/mL Not Available [facility] (Lab) [address] [place], [address], 06/21/2023 21:36:12 06/21/19 24 06/21/2023 TSH thyroid-stim ulating hormone 1.810 uIU/m L 0.465- 4.680 Not Available [facility] (Lab) [address] [place], [address], 06/21/2023 22:21:45 06/21/19 24 06/23/2023 CALCI UM, IONIZ ED/LC calcium, ionized, serum TNP mg/dL Test not perfo rmed. Speci men is hemol yzed. Unabl e to obtai n valid resul ts. Conta ct: Fabio Saez 2.1.2 4 Perfo rmed at: [address], [place] [address] Lab Direc tor: Colt morel PhD, Phone : [phone] Not Available [facility] (Lab) [address] [place], [address], 06/23/2023 13:09:57 09/20/19 24 09/20/2023 CBC/C OMPLE TE BLD COUNT W/DIF F white blood cells 14.5 x10'3 /uL 4.2-10 .8 high Not Available [facility] (Lab) [address] [place], [address], 09/20/2023 20:33:31 09/20/19 24 09/20/2023 CBC/C OMPLE TE BLD COUNT W/DIF F red blood cells 5.21 x10'6 /uL 3.80-5 .20 high Not Available [facility] (Lab) [address] [place], [address], 09/20/2023 20:33:31 09/20/19 24 09/20/2023 CBC/C OMPLE TE BLD COUNT W/DIF F hemoglobin 17.3 g/dL 12.0-1 5.6 high Not Available [facility] (Lab) [address] [place], [address], 09/20/2023 20:33:31 09/20/19 24 09/20/2023 CBC/C OMPLE TE BLD COUNT W/DIF F hematocrit 48.3 % 35.7-4 5.7 high Not Available [facility] (Lab) [address] [place], [address], 09/20/2023 20:33:31 09/20/19 24 09/20/2023 CBC/C OMPLE TE BLD COUNT W/DIF F mean red cell volume 92.7 fL 82.0-9 9.0 Not Available [facility] (Lab) [address] [place], [address], 09/20/2023 20:33:31 09/20/19 24 09/20/2023 CBC/C OMPLE TE BLD COUNT W/DIF F mean red cell hemoglobin 33.2 pg 27.0-3 3.0 high Not Available [facility] (Lab) [address] [place], [address], 09/20/2023 20:33:31 09/20/19 24 09/20/2023 CBC/C OMPLE TE BLD COUNT W/DIF F mean RBC HGB concentratio n 35.8 g/dL 31.0-3 6.0 Not Available [facility] (Lab) [address] [place], [address], 09/20/2023 20:33:31 09/20/19 24 09/20/2023 CBC/C OMPLE TE BLD COUNT W/DIF F red cell distribution width 12.1 % 11.8-1 5.5 Not Available [facility] (Lab) [address] [place], [address], 09/20/2023 20:33:31 09/20/19 24 09/20/2023 CBC/C OMPLE TE BLD COUNT W/DIF F platelets 256 x10'3 /uL 150-40 0 Not Available [facility] (Lab) [address] [place], [address], 09/20/2023 20:33:31 09/20/19 24 09/20/2023 CBC/C OMPLE TE BLD COUNT W/DIF F mean platelet volume 11.8 fL 9.0-12 .4 Not Available [facility] (Lab) [address] [place], [address], 09/20/2023 20:33:31 09/20/19 24 09/20/2023 CBC/C OMPLE TE BLD COUNT W/DIF F neutrophils 72.8 % 39.0-7 2.0 high Not Available [facility] (Lab) [address] [place], [address], 09/20/2023 20:33:31 09/20/19 24 09/20/2023 CBC/C OMPLE TE BLD COUNT W/DIF F lymphocytes 21.1 % 16.0-4 7.0 Not Available [facility] (Lab) [address] [place], [address], 09/20/2023 20:33:31 09/20/19 24 09/20/2023 CBC/C OMPLE TE BLD COUNT W/DIF F monocytes 4.8 % 5.0-12 .0 low Not Available [facility] (Lab) [address] [place], [address], 09/20/2023 20:33:31 09/20/19 24 09/20/2023 CBC/C OMPLE TE BLD COUNT W/DIF F eosinophils 0.7 % 1.0-7. 0 low Not Available [facility] (Lab) [address] [place], [address], 09/20/2023 20:33:31 09/20/19 24 09/20/2023 CBC/C OMPLE TE BLD COUNT W/DIF F basophils 0.3 % 0.0-2. 0 Not Available [facility] (Lab) [address] [place], [address], 09/20/2023 20:33:31 09/20/19 24 09/20/2023 CBC/C OMPLE TE BLD COUNT W/DIF F immature granulocytes 0.3 % 0.00-0 .50 Not Available [facility] (Lab) [address] [place], [address], 09/20/2023 20:33:31 09/20/19 24 09/20/2023 CBC/C OMPLE TE BLD COUNT W/DIF F neutrophils, absolute count 10.55 x10'3 /uL 1.5-8. 0 high Not Available [facility] (Lab) [address] [place], [address], 09/20/2023 20:33:31 09/20/19 24 09/20/2023 CBC/C OMPLE TE BLD COUNT W/DIF F lymphocytes, absolute count 3.07 x10'3 /uL 1.07-3 .43 Not Available [facility] (Lab) [address] [place], [address], 09/20/2023 20:33:31 09/20/19 24 09/20/2023 CBC/C OMPLE TE BLD COUNT W/DIF F monocytes, absolute count 0.70 x10'3 /uL 0.29-0 .99 Not Available [facility] (Lab) [address] [place], [address], 09/20/2023 20:33:31 09/20/19 24 09/20/2023 CBC/C OMPLE TE BLD COUNT W/DIF F eosinophils, absolute count 0.10 x10'3 /uL 0.02-0 .53 Not Available [facility] (Lab) [address] [place], [address], 09/20/2023 20:33:31 09/20/19 24 09/20/2023 CBC/C OMPLE TE BLD COUNT W/DIF F basophils, absolute count 0.05 x10'3 /uL 0.01-0 .08 Not Available [facility] (Lab) [address] [place], [address], 09/20/2023 20:33:31 09/20/19 24 09/20/2023 CBC/C OMPLE TE BLD COUNT W/DIF F immature granulocytes ,absolute 0.05 x10'3 /uL 0.00-0 .05 Not Available [facility] (Lab) [address] [place], [address], 09/20/2023 20:33:31 09/20/19 24 09/20/2023 CBC/C OMPLE TE BLD COUNT W/DIF F nucleated red blood cells 0.0 % -[address] [facility] (Lab) [address] [place], [address], 09/20/2023 20:33:31 09/20/19 24 09/20/2023 CBC/C OMPLE TE BLD COUNT W/DIF F NRBC# 0.00 x10'3 /uL Not Available [facility] (Lab) [address] [place], [address], 09/20/2023 20:33:31 09/20/19 24 09/22/2023 CALCI UM, IONIZ ED/LC calcium, ionized, serum 5.0 mg/dL 4.5-5. 6 Perfo rmed at: [facility] [address] [facility], [place] [address] Lab Direc tor: Colt morel PhD, Phone : [phone] Not Available [facility] (Lab) [address] [place], [address], 09/22/2023 13:10:47 11/04/19 24 11/04/2023 CBC/C OMPLE TE BLD COUNT W/DIF F white blood cells 12.9 x10'3 /uL 4.2-10 .8 high Not Available [facility] (Lab) [address] [place], [address], 11/04/2023 20:37:43 11/04/19 24 11/04/2023 CBC/C OMPLE TE BLD COUNT W/DIF F red blood cells 5.08 x10'6 /uL 3.80-5 .20 Not Available [facility] (Lab) [address] [place], [address], 11/04/2023 20:37:43 11/04/19 24 11/04/2023 CBC/C OMPLE TE BLD COUNT W/DIF F hemoglobin 16.5 g/dL 12.0-1 5.6 high Not Available [facility] (Lab) [address] [place], [address], 11/04/2023 20:37:43 11/04/19 24 11/04/2023 CBC/C OMPLE TE BLD COUNT W/DIF F hematocrit 46.3 % 35.7-4 5.7 high Not Available [facility] (Lab) [address] [place], [address], 11/04/2023 20:37:43 11/04/19 24 11/04/2023 CBC/C OMPLE TE BLD COUNT W/DIF F mean red cell volume 91.1 fL 82.0-9 9.0 Not Available [facility] (Lab) [address] [place], [address], 11/04/2023 20:37:43 11/04/19 24 11/04/2023 CBC/C OMPLE TE BLD COUNT W/DIF F mean red cell hemoglobin 32.5 pg 27.0-3 3.0 Not Available [facility] (Lab) [address] [place], [address], 11/04/2023 20:37:43 11/04/19 24 11/04/2023 CBC/C OMPLE TE BLD COUNT W/DIF F mean RBC HGB concentratio n 35.6 g/dL 31.0-3 6.0 Not Available [facility] (Lab) [address] [facility], [address], 11/04/2023 20:37:43 11/04/19 24 11/04/2023 CBC/C OMPLE TE BLD COUNT W/DIF F red cell distribution width 11.7 % 11.8-1 5.5 low Not Available [facility] (Lab) [address] [place], [address], 11/04/2023 20:37:43 11/04/19 24 11/04/2023 CBC/C OMPLE TE BLD COUNT W/DIF F platelets 272 x10'3 /uL 150-40 0 Not Available [facility] (Lab) [address] [place], [address], 11/04/2023 20:37:43 11/04/19 24 11/04/2023 CBC/C OMPLE TE BLD COUNT W/DIF F mean platelet volume 11.0 fL 9.0-12 .4 Not Available [facility] (Lab) [address] [place], [address], 11/04/2023 20:37:43 11/04/19 24 11/04/2023 CBC/C OMPLE TE BLD COUNT W/DIF F neutrophils 67.8 % 39.0-7 2.0 Not Available [facility] (Lab) [address] [place], [address], 11/04/2023 20:37:43 11/04/19 24 11/04/2023 CBC/C OMPLE TE BLD COUNT W/DIF F lymphocytes 23.2 % 16.0-4 7.0 Not Available [facility] (Lab) [address] [place], [address], 11/04/2023 20:37:43 11/04/19 24 11/04/2023 CBC/C OMPLE TE BLD COUNT W/DIF F monocytes 6.6 % 5.0-12 .0 Not Available [facility] (Lab) [address] [place], [address], 11/04/2023 20:37:43 11/04/19 24 11/04/2023 CBC/C OMPLE TE BLD COUNT W/DIF F eosinophils 1.3 % 1.0-7. 0 Not Available [facility] (Lab) [address] [place], [address], 11/04/2023 20:37:43 11/04/19 24 11/04/2023 CBC/C OMPLE TE BLD COUNT W/DIF F basophils 0.7 % 0.0-2. 0 Not Available [facility] (Lab) [address] [place], [address], 11/04/2023 20:37:43 11/04/19 24 11/04/2023 CBC/C OMPLE TE BLD COUNT W/DIF F immature granulocytes 0.4 % 0.00-0 .50 Not Available [facility] (Lab) [address] [place], [address], 11/04/2023 20:37:43 11/04/19 24 11/04/2023 CBC/C OMPLE TE BLD COUNT W/DIF F neutrophils, absolute count 8.76 x10'3 /uL 1.5-8. 0 high Not Available [facility] (Lab) [address] [place], [address], 11/04/2023 20:37:43 11/04/19 24 11/04/2023 CBC/C OMPLE TE BLD COUNT W/DIF F lymphocytes, absolute count 3.00 x10'3 /uL 1.07-3 .43 Not Available [facility] (Lab) [address] [place], [address], 11/04/2023 20:37:43 11/04/19 24 11/04/2023 CBC/C OMPLE TE BLD COUNT W/DIF F monocytes, absolute count 0.85 x10'3 /uL 0.29-0 .99 Not Available [facility] (Lab) [address] [place], [address], 11/04/2023 20:37:43 11/04/19 24 11/04/2023 CBC/C OMPLE TE BLD COUNT W/DIF F eosinophils, absolute count 0.17 x10'3 /uL 0.02-0 .53 Not Available [facility] (Lab) [address] [place], [address], 11/04/2023 20:37:43 11/04/19 24 11/04/2023 CBC/C OMPLE TE BLD COUNT W/DIF F basophils, absolute count 0.09 x10'3 /uL 0.01-0 .08 high Not Available [facility] (Lab) [address] [place], [address], 11/04/2023 20:37:43 11/04/19 24 11/04/2023 CBC/C OMPLE TE BLD COUNT W/DIF F immature granulocytes ,absolute 0.05 x10'3 /uL 0.00-0 .05 Not Available [facility] (Lab) [address] [place], [address], 11/04/2023 20:37:43 11/04/19 24 11/04/2023 CBC/C OMPLE TE BLD COUNT W/DIF F nucleated red blood cells 0.0 % -[address] [facility] (Lab) [address] [place], [address], 11/04/2023 20:37:43 11/04/19 24 11/04/2023 CBC/C OMPLE TE BLD COUNT W/DIF F NRBC# 0.00 x10'3 /uL Not Available [facility] (Lab) [address] [place], [address], 11/04/2023 20:37:43 05/19/20 24 05/18/2024 MAMMO , scree maru, digit al, bilat eral No observ ation record ed. [email or web address] [address], [place], [address], 05/28/2024 17:58:17 Result Notes None recorded. Problems Name Problem SNOMED Code Status Onset Date Resolution Date Notes Provider Name and Address Organization Details Recorded Time Otalgia 78394055 Active Not Available [facility] 3 07:35:36 Backache 010405216 Active Not Available [facility] 3 07:35:36 Abdominal pain 40360774 Active Not Available [facility] 3 07:35:36 Mixed anxiety and depressive disorder 045937122 Active 2020 Not Available [facility] 3 07:35:36 Gastroesophag eal reflux disease 345161367 Active Not Available [facility] 3 07:35:36 Gastroenterit is 96345868 Active Not Available [facility] 3 07:35:37 Low back pain 846517787 Active Not Available [facility] 3 07:35:37 Adnexal tenderness 323105069 Active Not Available [facility] 3 07:35:37 Chest pain 98712250 Active Not Available [facility] 3 07:35:37 Blood in urine 84463903 Active Not Available [facility] 3 07:35:37 Depressive disorder 71406651 Active Not Available [facility] 3 07:35:37 Chronic pain syndrome 085711626 Active Not Available [facility] 3 07:35:37 Vomiting 078698043 Active Not Available [facility] 3 07:35:37 Chronic headache disorder 486326638 Active 2020 Not Available [facility] 3 07:35:37 Viral syndrome 157408247 Active Not Available [facility] 3 07:35:38 Anxiety 04144218 Active Not Available [facility] 3 07:35:38 Pain of hip region 00175205 Active Not Available [facility] 3 07:35:38 Chronic fatigue syndrome 06115727 Active Not Available [facility] 3 07:35:38 Upper respiratory infection 16649635 Active Not Available [facility] 3 07:35:38 Rheumatoid arthritis 23852522 Active 2020 Not Available [facility] 3 07:35:38 Neck pain 60129739 Active Not Available [facility] 3 07:35:38 COVID-19 035544118 Active 2020 Not Available [facility] 3 07:35:39 Fatigue 15220194 Active Not Available [facility] 3 07:35:39 Increased frequency of urination 757964199 Active 2022 LUCIAN Kendall [address], [address] [place] [address], [address] , [facility] 3 11:13:14 Tremor 50801687 Active 2022 LUCIAN Kendall [address], [address], [address] , [facility] 3 11:18:58 Urinary incontinence 043756793 Active 2022 LUCIAN Kendall [address], [address] , 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 69964720 Active 2022 LUCIAN Kendall [address], [address], [place], [address] , [facility] 3 18:56:56 Psychologic conversion disorder 29831806 Active 2022 LUCIAN Kendall [address], [place], [address] , [facility] 3 18:58:36 Migraine 01009217 Active 2022 LUCIAN Kendall [address], [place], [address] , [facility] 3 11:17:28 Recurrent conversion disorder 15198219 Active 2022 Sharita De La Paz MD [address], [place], [address] , [facility] 3 11:29:45 Cobalamin deficiency 110095681 Active 2022 Sharita De La Paz MD [address], [place], [address] , [facility] 3 11:30:32 Vitamin D deficiency 03144866 Active 2022 Sharita De La Paz MD [address], [place], [address] , [facility] 3 11:31:25 Hypercalcemia 79863282 Active 2022 Sharita De La Paz MD [address], [place], [address] , [facility] 3 07:57:15 Neuropathy 691577553 Active 2023 Sharita De La Paz MD [address], [address], [place], [address] , [facility] 4 11:29:36 Leukocytosis 457331209 Active 2023 Sharita De La Paz MD [address], [address], [place], [address] , [facility] 4 11:20:04 Insomnia 778583130 Active 2023 MANE Corral [address], [facility] [address], [place], [address] , [facility] 4 11:25:06 Disorder of autonomic nervous system 69078492 Active 2024 MANE Georges [address], [place] [address], [place], [address] , [facility] 5 15:11:58 Acute right otitis media 098363237 Active 2024 MANE Georges [address], [place] [address], [place], [address] , [facility] 5 15:14:42 Problem Notes None recorded. 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 Procedure Notes None recorded. Medical Equipment None Reported. Allergies No known drug allergies Medications Name Sig Start Date Stop Date Status Note LastModified by Organization Details LastModified Time cyclobenza annamaria 10 mg tablet active Not Available Not Available No t Available amoxicilli n 500 mg capsule TAKE 1 CAPSULE BY MOUTH TWICE A DAY active Not Available Not Available No t Available hydrocodon e 7.5 mg-ibuprof en 200 mg tablet active Not Available Not Available Not Available nabumetone 750 mg tablet 01/23 completed Not Available Not Available Not Available trazodone 50 mg tablet Take 1 tablet every day by oral route. 07/03 completed Not Available Not Available Not Available polyethyle ne glycol 3350 17 gram [...] Not Available Not Available No t Available carbidopa 10 mg-levodop a 100 mg tablet TAKE 1 TABLET 3 TIMES A DAY BY ORAL ROUTE. active Not Available Not Available No t [...] Available Not Available lorazepam 1 mg tablet TAKE 1 TABLET BY MOUTH IN THE MORNING AND NOON. THEN TAKE 2 TABLETS BY MOUTH AT BEDTIME. 2024 active Not Available Not Available Not Avai lable hydroxychl oroquine 200 mg tablet Take 1 [...] Not Available Not Available Not Available Afluria 2498-3153( PF) 45 mcg (15 mcg x 3)/0.5 mL intramuscu lar syringe TO BE ADMINIST ERED BY PHARMACI [...] Available Not Available Not Available Flucelvax Quad 2893-9165 (PF) 60 mcg (15 mcg x 4)/0.5 mL IM syringe 05/18 completed Not Available Not Available Not Available cyanocobal escamilla (vitamin B-12) 1,000 mcg capsule TAKE 1 CAPSULE BY MOUTH EVERY DAY IN THE MORNING 03/22 completed Not Available Not Available Not Available Flucelvax Quad (PF) 60 mcg (15 mcg x 4)/0.5 [...] Not Available Vitals Date Recorded Body height Body mass index (BMI) Body weight Body temperature Heart rate Oxygen saturation Oxygen saturation in Arterial blood by Pulse oximetry Systolic blood pressure Diastolic blood pressure Provider Name and Address Organization Details Last Updated DateTime 4 167.64 cm 26.8 kg/m2 86278.3 3 g 97.4 [degF] 83 /min 97 % 97 % 138 mm[Hg] 84 mm[Hg] Reina Carrillo RN [facility] markedup [facility] 4 11:03:15 Date Recorded Body height Body mass index (BMI) Body weight Body temperature Heart rate Oxygen saturation Oxygen saturation in Arterial blood by Pulse oximetry Systolic blood pressure Diastolic blood pressure Provider Name and Address Organization Details Last Updated DateTime 5 167.64 cm 24.7 kg/m2 15539.6 3 g 97.2 [degF] 79 /min 98 % 98 % 118 mm[Hg] 78 mm[Hg] Reina Carrillo RN [facility] markedup [facility] 5 14:52:49 Date Recorded Body height Body mass index (BMI) Body weight Body temperature Oxygen saturation Oxygen saturation in Arterial blood by Pulse oximetry Heart rate Systolic blood pressure Diastolic blood pressure Provider Name and Address Organization Details Last Updated DateTime 4 167.64 cm 25.8 kg/m2 36395.7 8 g 97.9 [degF] 97 % 97 % 68 /min 126 mm[Hg] 78 mm[Hg] Reina Carrillo RN [facility] markedup [facility] 4 11:13:58 Date Recorded Body height Body mass index (BMI) Body weight Body temperature Heart rate Oxygen saturation Oxygen saturation in Arterial blood by Pulse oximetry Systolic blood pressure Diastolic blood pressure Provider Name and Address Organization Details Last Updated DateTime 4 167.64 cm 24.7 kg/m2 27144.6 3 g 96.7 [degF] 78 /min 98 % 98 % 118 mm[Hg] 82 mm[Hg] Senia Gallo RN [facility] markedup [facility] 4 11:05:26 Social History Question Answer Notes LastModified by Organizat ion Details LastModified Time Tobacco Smoking Status Former Smoker Not Available [employer] 07/21/2022 07:28:29 Do You Have An Advance Directive? No [id number] Information not available 07/21/2022 Do You Wear A Helmet When Biking? Yes MIGRATION.638970 7496 Information not available 07/21/2022 What Is Your Level Of Caffeine Consumption? Moderate MIGRATION.039418 8833 Information not available 07/21/2022 How Much Tobacco Do You Chew? None MIGRATION.644463 2978 Information not available 07/21/2022 In The 14 Days Before Symptom Onset, Have You Had Close Contact With A Laboratory-confirm ed COVID-19 While That Case Was Ill? No MIGRATION.517183 4717 Information not available 07/21/2022 In The 14 Days Before Symptom Onset, Have You Had Close Contact With A Person Who Is Under Investigation For COVID-19 While That Person Was Ill? No MIGRATION.025239 9354 Information not available 07/21/2022 What Type Of Diet Are You Following? REGULAR MIGRATION.485747 7544 Information not available 07/21/2022 Which Illicit Or Recreational Drugs Have You Used? None MIGRATION.829412 2961 Information not available 07/21/2022 What Is The Highest Grade Or Level Of School You Have Completed Or The Highest Degree You Have Received? [id number] MIGRATION.903530 9773 Information not available 07/21/2022 Are There Any Guns Present In Your Home? No MIGRATION.118326 8885 Information not available 07/21/2022 What Was The Date Of Your Most Recent Tobacco Screening? 10/30/2019 MIGRATION.272203 1601 Information not available 07/21/2022 What Is Your Current Pack Years? 30ormorepacky ears MIGRATION.589743 1506 Information not available 07/21/2022 What Is Your Relationship Status? MIGRATION.773437 3460 Information not available 07/21/2022 At What Age Did You Start Smoking Tobacco? 25 MIGRATION.579220 7775 Information not available 07/21/2022 How Much Tobacco Do You Smoke? No MIGRATION.252130 1679 Information not available 07/21/2022 Do You Participate In Social Media? No MIGRATION.759301 7744 Information not available 07/21/2022 Do You Use Sunscreen Routinely? Yes MIGRATION.603081 7314 Information not available 07/21/2022 Has Tobacco Cessation Counseling Been Provided? No MIGRATION.356799 7831 Information not available 07/21/2022 How Many Years Have You Smoked Tobacco? 26 MIGRATION.140156 4118 Information not available 07/21/2022 Have You Recently Traveled Abroad? No MIGRATION.310413 5947 Information not available 07/21/2022 Are You Currently In School? No MIGRATION.622047 8253 Information not available 07/21/2022 Do You Have Any Dietary Restrictions? No MIGRATION.699548 0875 Information not available 07/21/2022 Sex: Unknown Functional Status Question Answer Note LastModified by Treatoizat ion Details LastModified Time Do you use any illicit or recreational drugs? No MIGRATION.756638 3155 Information not available 07/21/2022 Do you or have you ever used any other forms of tobacco or nicotine? No MIGRATION.944689 6145 Information not available 07/21/2022 What is your level of alcohol consumption? None MIGRATION.337429 9779 Information not available 07/21/2022 Do you or have you ever used smokeless tobacco? Never used smokeless tobacco MIGRATION.999531 6488 Information not available 07/21/2022 Do you or have you ever used e-cigarettes or vape? Never used electronic cigarettes MIGRATION.772544 2279 Information not available 07/21/2022 What is your exercise level? None MIGRATION.643071 7663 Information not available 07/21/2022 Mental Status Question Answer Note LastModified by Treatoizat ion Details LastModified Time Do you feel stressed (tense, restless, nervous, or anxious, or unable to sleep at night)? [id number] MIGRATION.[id number] 6 Information not available 07/21/2022 Family History Relationship Description Onset Age of this Age Resolved Age Notes LastModified by Organization Details LastModified Time Mother Essential hypertension frivastorres Not available 03/23/2024 10:55:36 Mother Cholecystect clinton frivastorres Not available 05/2023 10:55:36 Mother Diabetes mellitus MIGRATION.812 [id number] Not available 07/21/2022 07:28:42 Maternal Aunt Diabetes mellitus MIGRATION.[id number] Not available 07/21/2022 07:28:42 Maternal Uncle Diabetes mellitus MIGRATION.[id number] Not available 07/21/2022 07:28:42 Daughter Essential hypertension frivastorres Not available 03/23/2024 10:55:36 Daughter Cholecystect clinton frivastorres Not available 05/2023 10:55:36 Medical History Condition Response BLINDNESS N RHEUMATIC FEVER N KIDNEY STONES N BLADDER PROBLEMS N MRSA N POLIO N LUNG DISEASE/DISORDER N COPD N RADIATION / CHEMOTHERAPY N BLOOD DISEASES N SURGERY N EAR [...] HAVE YOU BEEN HOSPITALIZED OR SEEN IN [facility] IN THE PAST YEAR ? N [...] PPV23 2 completed Not Available [facility] 07/21/2022 07:42:50 Influenza, split virus, trivalent, PF 2 completed Not Available [facility] 07/21/2022 07:42:50 SARS-COV-2 (COVID-19) vaccine, UNSPECIFIED 1 completed Not Available [facility] 07/21/2022 07:42:50 Influenza, split virus, quadrivalent, PF 1 completed Not Available [facility] 07/21/2022 07:42:50 Influenza, split virus, quadrivalent, preservative 9 completed Not Available [facility] 07/21/2022 07:42:50 Tdap 7 completed Not Available [facility] 07/21/2022 07:42:50 Influenza, split virus, quadrivalent, preservative 6 completed Not Available [facility] 07/21/2022 07:42:50 Influenza, split virus, quadrivalent, PF 5 completed Not Available [facility] 07/21/2022 07:42:51 Past Encounters Encounter ID Performer Location Encounter Start Date Encounter Closed Date Diagnosis/Indication Diagnosis SNOMED-CT Code Diagnosis ICD10 Code Diagnosis Note [id number] LUCIAN Kendall [facility] [place] [address] [place] [address] 09/05/2020 00:00:00 09/05/2020 09:25:58 [id number] LUCIAN Kendall [facility] [place] [address] [place] [address] 10/10/2020 00:00:00 10/10/2020 12:05:31 [id number] LUCIAN Kendall [facility] [place] [address] [place] [address] 11/07/2020 00:00:00 11/07/2020 13:45:50 [id number] Sharita De La Paz MD [facility] [place] [address] [place] [address] 12/05/2020 00:00:00 12/05/2020 14:04:16 [id number] Sharita De La Paz MD [facility] [place] [address] [place] [address] 01/02/2021 00:00:00 01/02/2021 21:05:39 [id number] Sharita De La Paz MD [facility] [place] [address] [place] [address] 02/10/2021 00:00:00 02/10/2021 18:13:13 [id number] Sharita De La Paz MD [facility] [place] [address] [place] [address] 03/13/2021 00:00:00 03/13/2021 20:34:08 [id number] Sharita De La Paz MD [facility] [place] [address] [place] [address] 04/10/2021 00:00:00 04/10/2021 13:52:52 [id number] Sharita De La Paz MD [facility] [place] [address] [place] [address] 05/08/2021 00:00:00 05/08/2021 16:40:32 [id number] Sharita De La Paz MD [facility] [place] [address] [place] [address] 06/05/2021 00:00:00 06/05/2021 17:15:24 [id number] Sharita De La Paz MD [facility] [place] [address] [place] [address] 07/14/2021 00:00:00 07/14/2021 14:11:48 [id number] Sharita De La Paz MD [facility] [place] [address] [place] [address] 08/11/2021 00:00:00 08/11/2021 20:42:18 [id number] LUCIAN Kendall [facility] [place] [address] [place] [address] 09/08/2021 00:00:00 09/09/2021 20:30:57 [id number] CARIDAD Keith [facility] [place] [address] [place] [address] 10/06/2021 00:00:00 10/06/2021 14:05:52 [id number] LUCIAN Kendall [facility] [place] [address] [place] [address] 11/03/2021 00:00:00 11/03/2021 11:30:20 [id number] LUCIAN Kendall [facility] [place] [address] [place] [address] 12/01/2021 00:00:00 12/01/2021 16:07:55 [id number] LUCIAN Kendall [facility] [place] [address] [place] [address] 01/12/2022 00:00:00 01/12/2022 14:05:08 [id number] LUCIAN Kendall [facility] [place] [address] [place] [address] 02/11/2022 00:00:00 02/11/2022 20:07:26 [id number] Sharita De La Paz MD [facility] [place] [address] [place] [address] 02/25/2022 00:00:00 02/25/2022 11:53:18 [id number] Sharita De La Paz MD [facility] [place] [address] [place] [address] 04/06/2022 00:00:00 04/06/2022 19:01:25 [id number] Sharita De La Paz MD [facility] [place] [address] [place] [address] 05/18/2022 00:00:00 05/18/2022 17:58:40 [id number] Sharita De La Paz MD [facility] [place] [address] [place] [address] 06/29/2022 00:00:00 06/29/2022 12:08:24 [id number] Ivette Renees, DIGITAL COMMUNICATIONS MANAGER [facility] [place] [address] [place] [address] 08/24/2022 10:52:24 08/24/2022 11:27:35 Increased frequency of urination 694134634 R35.0 R32 R30.0 New problem--U TI-Urine dip in office today/UA sent for C & S. Will start on PO abx. Advised continue increased fluid intake to flush urinary tract. Discussed proper feminine hygiene (wipe front to back, unscented soaps/mois turizers, empty bladder immediatel y after sexual activity). Encouraged use of probiotics . Tremor 63486428 R25.1 08/24/22: ChronicLik jennifer d/t long-covid Again [...] with thc.Differ entials include post viral/[place] (most likely), Myasthenia Gravis, Parkinson' s (less [...] visit.MRI unremarkab le (07/21/21) Urinary incontinence 165 681199 R32 ChronicEnc ouraged q 2hr toileting, Kegel exercises. Checking UA and culture for possible UTI. Discussed this may be sequelae of long-covid . Psychologi c conversion disorder 64453714 F44.9 Functional Neurologic DisorderNe w dx per neurology (Dr. Bentley)Philipp lomeli neurology note from Dr. 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), with abnormal movement- evaluated patient and discussed my impression that she is a functional neurologic disorder- directed patient to the website [employer]or g- address that many patients with a functional neurologic disorder can benefit from seeing a therapist particular ly as symptoms can cause significan t emotional stress and feelings of hopelessne ss- PSYCHOLOGY REFERRAL; Future [id number] LUCIAN Kendall [facility] Primary Care [facility] [address] [place] [address] 12/15/2022 10:55:43 12/15/2022 11:34:08 Tremor 51769546 R25.1 12/15/22: Chronic, secondary to long covid. [...] with thc.Differ entials include post viral/[place] (most likely), Myasthenia Gravis, Parkinson' s (less [...] unremarkab le (07/21/21) Psychologi c conversion disorder 41708659 F44.9 Functional Neurologic DisorderPe r neurology (Dr. Bentley) Reviewed neurology note from Dr. 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 timed/c diazepamre start lorazepam 1 mg po bid and 2 po qhscontinu e home exercisech nataly labsf/u in 3 months or sooner if needed Fatigue 52205758 R53.83 check labs Cobalamin deficiency 190 073242 E53.8 Vitamin D deficiency 347 55761 E55.9 [id number] Sharita De La Paz MD [facility] Primary Care [address] [place] [address] 06/21/2023 10:54:18 06/21/2023 11:38:23 Neuropathy 696394551 G62.9 has failed gabapentin check labs Hypercalcemia 47151930 E 83.52 noted on labscheck PTH and ionized calcium Cobalamin deficiency 190 939610 E53.8 Tremor 86602164 R25.1 no changeok to continue lorazepam 1 mg up to 4x per dayf/u in 3 months or sooner if needed Recurrent conversion disorder 77412715 F44.4 dx by neurology with functional neurologic [...] assistance , unable to drive/oper ate heavy [employer] srlaryu nable to work at this timecontin ue lorazepam 1 mg po bid and 2 po qhscontinu e home exercisech nataly labsf/u in 3 months or sooner if needed [id number] Sharita De La Paz MD [facility] [address] [place] [address] 09/20/2023 11:07:34 09/20/2023 11:32:03 Tremor 29167124 R25.1 no changeok to continue lorazepam 1 mg up to 4x per dayf/u in 6 months or sooner if needed Hypercalcemia 71684860 E 83.52 noted on labs previously PTH normal but ionized calcium couldn't be donerechec k ionized calcium Leukocytosis 091994746 D 72.111 [id number] MANE Corral [facility] Primary Care [facility] [address] [facility] [place] [address] 11/04/2023 11:53:09 11/04/2023 12:05:54 [id number] MANE Corral [facility] Primary Care [facility] [address] [facility] [place] [address] 03/23/2024 10:53:59 03/23/2024 11:44:25 Tremor 63657570 R25.1 no changeok to continue lorazepam 1 mg up to 4x per dayf/u in 3 months or sooner if needed Hypercalcemia 77850593 E 83.52 noted on labs previously PTH normal but ionized calcium couldn't be donerechec k ionized calcium Leukocytosis 169737731 D 72.829 has already f/u with hematology next f/u in June 2024 Long-term drug therapy 617685447 Z79.891 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 16196536 E34.9 tremors, slurred/de layed speechpt believes symptoms improve at times Insomnia 530725141 G47.0 0 FMD causing trouble staying asleephas tried melatonin without reliefuses lorazepamt rial trazodone [id number] MANE Georges [facility] Primary Care [facility] [address] [facility] [place] [address] 07/03/2024 14:47:37 07/03/2024 15:21:25 Adult health examination 426617746 Z00.00 Discussed medication compliance and routine follow up.Discuss ed healthy diet and routine exercise.Philipp gamboawed vaccine records and made recommenda tions as needed.Enc ouraged annual eye and dental exams, as well as twice yearly dental cleanings. Tremor 82160128 R25.1 Acute righ t otitis media 877275510 H66.91 Will treat as listed below, patient will follow up as needed. 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 Does virtual meditation every morning. Health Concerns Section Related Observation LastModified by Organization Detai ls LastModified Time None Recorded Concern Status LastModified by Organization Details LastModified Time None Recorded Advance Directives Directive N: Payers Encounter Date Sequence Insurance Name Policy Number Policy Jordan Covered Member ID Jordan Member ID Guarantor Name 06/21/2023 1 [place] [id number] [place] [id number] Lory Bridges 09/20/2023 1 [place] [id number] [place] [id number] Lory Bridges 09/20/2023 2 [place] Lory Bridges [id number] Lory Bridges 11/04/2023 1 [place] [id number] [place] [id number] Lory Bridges 11/04/2023 2 [place] L[place] Bridges [id number] Lory Bridges 03/23/2024 2 [place] Lory Bridges [id number] Lory Bridges 03/23/2024 1 [place] [id number] [place] [id number] Lory Bridges 07/03/2024 2 [place] Lory Bridges [id number] Lory Bridges 07/03/2024 1 [place] [id number] [place] [id number] Lory Bridges Notes Date Note Type Note Provider Name and Address Organization Details Recorded Time 06/21/2023 text/html update 06/21/23: No interval change. [...] down all night eating everything in the house. 06/29/22: 1. 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 Was dx with mild obstructive airway disease via PFT (02/19/21). Pt states the cough often makes her throw up. States the vomit is primarily mucous. 04/06/22: 1. Pt presents for telehealth video/phone conference. Verbal consent witnessed by emergency medical technician basic student and Ivette Macedo (provider).2. Pt presents for 4 week f/u on depression sx since increasing Abilify dosage. Pt states she thinks she is feeling a little better with the higher dose. States she is down a lot. Thinks her down feeling is d/t her health issues.3. Pt c/o still having cough with lots of mucous since last visit. No improvement with otc cough/cold meds and higher doses of antihistamines.4. Pt states her believes her tics/tremors might be due to Parkinson's disease. Pt states the tremors just consume my life. Pt states stress/commotion set the tremors off. [...] exam next week that was ordered by [employer] people.2. Pt states propranolol helps some with [...] for permanent disability. States she has an senior trial attorney assisting.3. Pt and report that her tremors [...] telehealth video/phone conference. Verbal consent witnessed by emergency medical technician basic name (MA) and Ivette Macedo (provider).2. Pt states she is feeling like she is coming down sick. States she has a cough, body aches, fever. Worried that it could be flu or covid b/c is back at work. States son and are both sick as well.3. Pt states abd pain is better, but still present. Still having some vaginal bleeding. Reports she hasn't gotten call to schedule with pool lifeguard provider.4. Pt states she has an upcoming [...] her stomach, cramping, and bleeding heavily since Thanksgiving. States she had a uterine ablation years [...] like she just isn't getting better at all. Pt states she feels like she had [...] issues.3. Pt states her tongue is still weird. States it feels like it did when [...] with neuro.2. Pt states she saw her back seam stitcher and had updated labs done. States they didn't make a recommendation for her to get back on autoimmune meds. Sharita De La Paz MD [address], [place] [address], [place], [address], [employer] [facility] [employer] 06/21/2023 11:38:41 09/20/2023 text/html she is taking lorazepam as prescribed, finds it helpful no selling/lending/jamarcus ing, no heavy etoh or illegal drug Sharita De La Paz MD [address], [address], [place], [address], [employer] 10/09/2023 15:19:46 03/23/2024 text/html pt is here for f/u MANE Shaver [address], [facility] [address], [place], [address], [facility] [employer] 03/23/2024 11:41:23 07/03/2024 text/html Patient is a 49 year old female that presents to the office for annual wellness. Patient is accompanied by . Patient is doing well at this time given her functional neurological disorder. Patient has been released from neurology (there is nothing else they could do for her). Patient was recently deemed disabled.Patient does online meditation every morning. Patient reports influenza two weeks ago, has had productive cough with green sputum since Tuesday and right ear pain. Patient denies chest pain and shortness of breath, fevers and sore throat at this time. labs-UTD (10/2023)WWE-decline sMammogram- UTD (04/2024)Colonoscopy - UTDFlu-declinesCovid - UTD declinesTdap- UTD (12/2016)Shingles- declines MANE Georges [address], [facility] [address], [place], [address], [employer] 07/03/2024 15:21:24 OBGyn Episode No OBEpisode recorded.
[2024-10-18 13:30] LABS: Basophils Absolute Auto 0.1 K/mm3 (0.0-0.1); Basophils Percent Auto 0.6 % (0.2-1.2); Eosinophils Absolute Auto 0.2 K/mm3 (0-0.3); Eosinophils Percent Auto 1.5 % (0-4.4); Hematocrit 48.9 % (37.0-47.0); Hemoglobin 16.6 g/dL (12.0-15.0); Immature Granulocyte Absolute 0.03 K/mm3 (0.00-0.031); Immature Granulocyte Percent A 0.2 % (0-0.5); Lymphocytes Absolute Auto 3.19 K/mm3 (0.9-3.2); Lymphocytes Percent Auto 25.6 % (18.3-44.2); Mean Corpuscular HGB Conc 33.9 g/dl (32-36); Mean Corpuscular Hemoglobin 30.9 pg (26-34); Mean Corpuscular Volume 90.9 fl (80-100); Mean Platelet Volume 10.6 fl (7.4-10.4); Monocytes Absolute Auto 0.7 K/mm3 (0.1-0.6); Monocytes Percent Auto 5.5 % (2.6-8.5); Neutrophils Absolute Auto 8.3 K/mm3 (1.3-6.7); Neutrophils Percent Auto 66.6 % (45.5-73.1); Platelet Count Result 251 k/mm3 (150-375); Red Blood Count 5.38 M/mm3 (4.2-5.4); White Blood Count 12.5 K/mm3 (4.5-10.0)
[2024-10-18 13:38] LABS: Anion Gap 9 mmol/L (4-12); Blood Urea Nitrogen 13 mg/dL (7-17); Calcium 10.2 mg/dL (8.4-10.2); Carbon Dioxide 26 mmol/L (22-30); Chloride 106 mmol/L (98-107); Estimated Glomerular Filt Rate > 60; Glucose 100 mg/dL (65-110); Potassium 4.3 mmol/L (3.4-5.0); Sodium 141 mmol/L (137-145)
== END 2024-10-18 12:42 | disposition home or self-care (01) ==
PROVIDERS: PCP Nurse Practitioner Family; Visit Provider Internal Medicine Hematology & Oncology
DX: D75.1 Secondary polycythemia (principal)
CPT/HCPCS: 36415; 80048; 81270; 85025

== ENCOUNTER 2024-11-30 08:29 | Outpatient (CLI) | payer BC, MEDICARE, SELFPAY ==
--- NOTE | ~2024-11-30 | US_ITS ---
EXAMINATION TYPE: US breast RT limited COMPARISON: 06/05/2024 REASON FOR STUDY: ABNORMAL ALESHIA TECHNIQUE: Targeted sonographic evaluation of the right breast was performed. INTERPRETATION: There is a 5 mm septated cyst at the 12:00 position right breast, 5 cm from the nipple. There is a 5 mm mildly complex cyst at the 12:00 position right breast near the nipple, with low-level internal ec hoes. There is a 4 mm lobulated hypoechoic mass versus possibly cyst at the 1:00 position right breas t, 5 cm from the nipple. There is a 4 mm probably minimally complex cyst at the 3:00 position right b reast, 2 cm the nipple. There is a 4 mm cyst at the 9:00 position right breast, near the nipple. Ther e is a 7 mm probable lymph node with small fatty hilum at the 9:00 position right breast near the nip ple. IMPRESSION: Multiple subcentimeter breast lesions as above are stable to mildly decreased from prior exam, all co mpatible with benign findings. BI-RADS CATEGORY: BI-RADS 2: Benign Reviewed, dictated and finalized at location M. IMPRESSION: Multiple subcentimeter breast lesions as above are stable to mildly decreased f rom prior exam, all compatible with benign findings. BI-RADS CATEGORY: BI-RADS 2: Benign
--- OUTSIDE RECORDS SUMMARY | 2024-11-30 08:32 | XMS_ITS | Clinical Summary ---
Author Organization [facility] Address [address] [place] [address] Phone Care Team Providers Care Irrigator Valve Pipe Name Role Phone Ivette Macedo APRN, PAINT STOCK CLERK Primary Care Provider Jcarlos Bentley MD Unavailable [phone] Allergies No known active allergies Medications ARIPiprazole [...] Cervical Cancer Screening (CCS) 2004 HPV/Cotest 2004 Cologuard 2019 Colonoscopy 2019 Colorectal Cancer Screening 2019 Immunochemical Fecal Occult Blood 2019 SARS-COV-2 Immunization ( season) 2024 11/07/2020, 10/10/2020 Pneumococcal Immunization (50+ years) (2 of 2 - PCV) 2024 09/01/2011 Zoster Immunization (1 of 2) 2024 Influenza Immunization (#1) 01/21/202503/23, 04/26/2019, 02/20/2018, Additional history exists Respiratory Syncytial Virus (RSV) Immunization (Adult) (1 - 1-dose 75+ series) 2049 Pneumococcal Immunization Combined Discontinued 09/01/2011 DTaP/Tdap/Td Immunization Discontinued 12/30/2016 TdaP Immunization Completed 12/30/2016 Human Papillomavirus (HPV) Immunization Aged Out No longer eligible based on patient's age to complete this topic Meningococcal Immunization (ACWY) Aged Out No longer eligible based on patient's age to complete this topic Rotavirus Immunization Aged Out No lo nger eligible based on patient's age to complete this topic Insurance [facility] Care Teams Irrigator Valve Pipe Relationship Specialty Start Date End Date Ivette Macedo, LIGHT COIL WINDER, PAINT STOCK CLERK [address] [place] [address] PCP - General Certified Nurse Practitioner 05/19/22 Jcarlos Bentley MD [address] [place] [address] Consulting Physician Neurology 08/16/22
--- OUTSIDE RECORDS SUMMARY | 2024-11-30 08:32 | XMS_ITS | Clinical Summary ---
Author Organization [facility] [place] Address [address] [place] [place] [address] Care Team Providers Care Celery Packer Name Role Phone Sharita De La Paz MD Primary Care Provider [phone] Source Comments [facility] [place],non-owned Affiliates and Associated Physician Practices is amultiple site organization consisting of ambulatory clinics and hospital sitesin [place], [place], [place] and [place]. This disclosure is being madepursuant to the Care Everywhere program and may not contain all information available regarding this patient. Last updated 18.[facility] Allergies No known active allergies Medications * [...] on file Legal Sex Female 5:13 PM PLUCK TRIMMER Gender Identity Not on file Sexual Orientation Not on file Last Filed Vital Signs Vital Sign Reading Time Taken Comments Blood Pressure 121/74 07/06/2021 10:40 AM PLUCK TRIMMER Pulse 81 07/06/2021 10:40 AM PLUCK TRIMMER Temperature 36.4 C (97.6 F) 07/06/2021 10:40 AM PLUCK TRIMMER Respiratory Rate 18 10/27/2016 9:40 AM CDT Oxygen Saturation 99% 02/11/2021 8:31 AM CDT Inhaled Oxygen Concentration - - Weight 78.9 kg (174 lb) 07/06/2021 10:40 AM PLUCK TRIMMER Height 167.6 cm (5' 6) 07/06/2021 10:40 AM PLUCK TRIMMER Body Mass Index 28.08 07/06/2021 10:40 AM PLUCK TRIMMER Plan of Treatment Health Maintenance Due Date Last Done Comments COLOGUARD (AGES 45-75) - COLON CA SCREENING 1974 COLON MONITORING 1974 COLONOSCOPY - COLON CA SCREENING 1974 CT COLONOGRAPHY - COLON CA SCREENING 1974 Colorectal Cancer Screening 1974 FIT - COLON CA SCREENING 1974 FLEX SIG - COLON CA SCREENING 1974 MAMMOGRAM 1974 MEDICARE AWV 12 MONTHS 1974 HIV SCREENING 1989 DTAP/TDAP/TD VACCINES (1 - Tdap) 1993 HEPATITIS B VACCINE (1 of 3 - 19+ 3-dose series) 1993 PNEUMOCOCCAL VACCINE 50+ (1 of 2 - PCV) 1993 PAP SMEAR 1995 SCREENING FOR DIABETES 11/13/2023 , 11/22/2019, 01/23/2019, [...] HEPATITIS C ANTIBODY Routine 06/25/2014 9:23 AM PLUCK TRIMMER from Last 3 Months or Most Recently Relevant to Health Maintenance Results * (ABNORMAL) COMPREHENSIVE METABOLIC PANEL (11/12/2020 11:06 AM CDT) [facility] Glucose 78 65 - 99 mg/dL [facility] [...] 29 U/L [facility] Comment: Test Performed at: [address] [facility] [employer] [id number] AMADEO GONZALES DO,MPH Blood BLOOD SPECIMEN / Unknown 11/12/2020 11:06 AM CDT 11/12/2020 11:08 AM CDT Jay Patel MD LAB - CHEMISTRY ORDERABLES Final Result [facility] [address] [place] [address] * HEPATITIS C ANTIBODY (06/25/2014 9:23 AM PLUCK TRIMMER) [facility] Hepatitis C Antibody NON-REACTI VE NON-REACT FELIPE [facility] ([facility]) Signal/Cutoff 0.01 <1.00 [facility] ([facility]) Comment: Test Performed at: [id number] [employer] [id number] AMADEO GONZALES DO,MPH Blood specimen (specimen) BLOOD SPECIMEN / Unknown 06/25/2014 9:23 AM PLUCK TRIMMER 06/25/2014 9:23 AM PLUCK TRIMMER Khushbu Gan MD LAB - CHEMISTRY ORDERABLES Final Result [facility] ([facility]) [id number] from Last 3 Months or Most Recently Relevant to Health Maintenance Insurance [facility] MEDICARE MEDICARE ANTH Care Teams Celery Packer Relationship Specialty Start Date End Date Sharita De La Paz MD [address] [place] [id number] PCP - General 01/29/15
--- OUTSIDE RECORDS SUMMARY | 2024-11-30 08:32 | XMS_ITS | Clinical Summary ---
Author Organization [facility] [place] Address [address] [facility] [place] [address] Care Team Providers Care Lining Cleaner Name Role Phone Unavailable Primary Care Provider Unavailabl e Allergies No known active allergies Medications LORazepam (ATIVAN) 0.5 mg tablet Take 0.5 mg by mouth every 4 hours as needed for Other (See Comment). Active Active Problems No known active problems Encounters Date Type Department Care Team Description 11/09/2024 11:15 AM CDT Office Visit [facility] On[facility] and Hematology - [place] [address] [place] [address] Malik Ko MD Abnormal mammogram of right breast (Primary Dx); Polycythemia, secondary 11/06/2024 External Device Data STL ABSTRACTION Provider, Abstract 10/29/2024 Orders Only [facility] - [place] [address] [place] [address] Malik Ko MD 10/23/2024 External Device Data STL ABSTRACTION Provider, Abstract 10/18/2024 Orders Only [facility] - [address] [place] [address] Malik Ko MD 10/11/2024 External Device Data STL ABSTRACTION Provider, Abstract 10/10/2024 External Device Data STL ABSTRACTION Provider, Abstract 10/09/2024 External Device Data STL ABSTRACTION Provider, Abstract 09/26/2024 Abstract [facility] [address] [place] [address] Malik Ko MD 09/04/2024 External Device [...] on file 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 Gender Identity Not on file Sexual Orientation Not on file Last Filed Vital Signs Vital Sign Reading Time Taken Comments Blood Pressure 111/74 11/09/2024 11:19 AM CDT Pulse 89 11/09/2024 11:19 AM CDT Temperature 36.7 C (98.1 F) 11/09/2024 11:19 AM CDT Respiratory Rate 15 11/09/2024 11:19 AM CDT Oxygen Saturation 97% 11/09/2024 11:19 AM CDT Inhaled Oxygen Concentration - - Weight 68.5 kg (151 lb 1.6 oz) 11/09/2024 11:19 AM CDT Height 167.6 cm (5' 6) 01/12/2024 10:19 AM CDT Body Mass Index 24.39 01/12/2024 10:19 AM CDT Plan of Treatment Upcoming Encounters Date Type Department Care Team (Late st Contact Info) Description 12/06/2024 4:30 PM CDT Telephone Check Up [facility] - [place] [address] [place] [address] Malik Ko MD [address] [facility] [address] [place] [address] 05/10/2025 11:30 AM DRYING MACHINE OPERATOR Office Visit [facility] - [place] [address] [place] [address] Malik Ko MD [address] [facility] [address] [place] [address] Health Maintenance Due Date Last Done Comments HEPATITIS B VACCINES (1 of 3 - 19+ 3-dose series) 1993 ZOSTER VACCINE (1 of 2) 1993 HPV/Cotest (21-29) 1995 CERVICAL CANCER SCREENING 2004 HPV/Cotest (30-65) 2004 PAP SMEAR 2004 FIT-DNA Q 3 years 2019 FIT/FOBT Q 1 year 2019 Flex Sig/CT Colonography Q 5 years 2019 Lung Cancer Screening 2024 INFLUENZA VACCINE (#1) 2024 , 04/26/2019, 03/04/2016, Additional history exists BREAST CANCER SCREENING 05/18/2025 05/18/2024 DTAP/TDAP/TD VACCINES (2 - T d or Tdap) 12/30/2026 12/30/2016 COLORECTAL SCREENING 02/02/2034 02/03/2024 Colorectal Cancer Screening 02/02/2034 Procedures Procedure Name Priority Date/Time Associated Diagnosis Comments CBC WITH DIFFERENTIAL Routine 10/18/2024 4:29 PM CDT JAK2 EXON 12 MUTATION ANALYSIS Routine 10/18/2024 11:25 AM CDT MAMMO SCREENING BILAT Routine 05/18/2024 8:16 AM DRYING MACHINE OPERATOR from Last 3 Months or Most Recently Relevant to Health Maintenance Results * CBC WITH DIFFERENTIAL (10/18/2024 4:29 PM CDT) Blood us Malik Ko MD HEMATOLOGY ORDERABLES Final Res ult * JAK2 EXON 12 MUTATION ANALYSIS (10/18/2024 11:25 AM CDT) Blood us Malik Ko MD HEMATOLOGY ORDERABLES COM Final Result * MAMMO SCREENING BILAT (05/18/2024 8:16 AM DRYING MACHINE OPERATOR) Anatomical Region Laterality Modality Breast Bilateral Mammography Malik Ko MD MAMMO ORDERABLES Final Result from Last 3 Months or Most Recently Relevant to Health Maintenance Insurance MEDICARE PART A AND B [facility] STATE [facility]
--- OUTSIDE RECORDS SUMMARY | 2024-11-30 08:33 | XMS_ITS | Encounter Summary ---
Author Organization [facility] Address [address] [place] [address] Care Team Providers Care Pmp Certified Project Manager Name Role Phone Sharita De La Paz MD Primary Care Provider [phone] Reason for Visit * Reason Onset Date Comments MEDICATION REFILL 03/14/2019 Encounter Details Date Type Department Care Team (Late st Contact Info) Description 03/14/[address] 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 [phone] PCP - General 01/29/15 documented as of this encounter
--- OUTSIDE RECORDS SUMMARY | 2024-11-30 08:33 | XMS_ITS | Encounter Summary ---
Author Organization [facility] Address [address] [place] [address] Care Team Providers Care Tire Trucker Name Role Phone Sharita De La Paz MD Primary Care Provider [phone] Reason for Visit * Reason Onset Date Comments MEDICATION REFILL 03/15/2019 Encounter Details Date Type Department Care Team (Late st Contact Info) Description 03/15/2019 Refill [facility] Pediatrics - Rheumatology [address] [place] [address] Khushbu Gan MD [address] [facility] 5th [place] [phone] MEDICATION REFILL Social History Tobacco Use Types Packs/Day Years Used Date Smoking Tobacco: Every Day Cigarettes Smokeless Tobacco: Never Alcohol Use Standard Drinks/Week Comments No 0 (1 standard drink = 0.6 oz pur e alcohol) Comments No Sex and Gender Information Value Date Recorded Sex Assigned at Not on file 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 [phone] PCP - General 01/29/15 documented as of this encounter
--- OUTSIDE RECORDS SUMMARY | 2024-11-30 08:33 | XMS_ITS | Data Portability ---
Author Organization [place] - [facility] [employer], Main Office Address [address] [place] [address] Assessment No assessment recorded. Plan of Treatment Reminders Order Date Submit Date Provider Last Modified By Organization Details Last Modified Time Details Appointments Follow Up 2024 09:30A Edgar Hill NP Not available Not available Not available Lab drug of abuse panel, urine 2023 024 [facility] ([facility] [address] [place], [address], 03/23/2024 18:48:53 CBC w/ auto diff 2023 [...] 13:25:30 CBC w/ auto diff 2023 [facility]24 [facility] Not available 06/21/2023 13:26:11 Referral None recorded. Procedures None recorded. Surgeries None recorded. Imaging None recorded. Medication Orders amoxicill in 500 mg capsule 2024 025 [id number], [address], [place], [address], 07/03/2024 15:18:13 lorazepam 1 mg tablet 2024 025 [id number], [address], [place], [address], 07/03/2024 15:18:16 carbidopa 10 mg-levodo pa 100 mg tablet 2024 025 [id number], [address], [place], [address], 07/03/2024 15:18:14 lorazepam 1 mg tablet 2023 024 [id number], [address], [place], [address], 03/23/2024 11:40:38 trazodone 50 mg tablet [address] [place], [place] [address]Pharmacy #[id number], [address], [place], [address], 07/03/2024 14:53:03 lorazepam 1 mg tablet 2023 024 [id number], [address], [place], [address], 09/20/2023 11:23:58 lorazepam 1 mg tablet 2023 024 [facility] #[id number], [address], [place], [address], 06/21/2023 11:36:37 Patient TargetsNo targets recorded. Patient InstructionsNo instructions recorded. Reason for Referral None Reported. Results Created Date Observation Date Name Description Value Unit Range Abnormal Flag Note LastModifiedBy Organization Detail LastModifiedTime 06/21/19 24 06/21/2023 CBC/C OMPLE TE BLD COUNT W/DIF F white blood cells 11.0 x10'3 /uL 4.2-10 .8 high Not Available [facility] (Lab) [address] [place], [address], 06/21/2023 20:39:58 06/21/19 24 06/21/2023 CBC/C OMPLE TE BLD COUNT W/DIF F red blood cells 5.10 x10'6 /uL 3.80-5 .20 Not Available [facility] (Lab) [address] [place], [address], 06/21/2023 20:39:58 06/21/19 24 06/21/2023 CBC/C OMPLE TE BLD COUNT W/DIF F hemoglobin 16.7 g/dL 12.0-1 5.6 high Not Available [facility] (Lab) [address] [place], [address], 06/21/2023 20:39:58 06/21/19 24 06/21/2023 CBC/C OMPLE TE BLD COUNT W/DIF F hematocrit 47.5 % 35.7-4 5.7 high Not Available [facility] (Lab) [address] [place], [address], 06/21/2023 20:39:58 06/21/19 24 06/21/2023 CBC/C OMPLE TE BLD COUNT W/DIF F mean red cell volume 93.1 fL 82.0-9 9.0 Not Available [facility] (Lab) [address] [place], [address], 06/21/2023 20:39:58 06/21/19 24 06/21/2023 CBC/C OMPLE TE BLD COUNT W/DIF F mean red cell hemoglobin 32.7 pg 27.0-3 3.0 Not Available [facility] (Lab) [address] [place], [address], 06/21/2023 20:39:58 06/21/19 24 06/21/2023 CBC/C OMPLE TE BLD COUNT W/DIF F mean RBC HGB concentratio n 35.2 g/dL 31.0-3 6.0 Not Available [facility] (Lab) [address] [place], [address], 06/21/2023 20:39:58 06/21/19 24 06/21/2023 CBC/C OMPLE TE BLD COUNT W/DIF F red cell distribution width 12.0 % 11.8-1 5.5 Not Available [facility] (Lab) [address] [place], [address], 06/21/2023 20:39:58 06/21/19 24 06/21/2023 CBC/C OMPLE TE BLD COUNT W/DIF F platelets 258 x10'3 /uL 150-40 0 Not Available [facility] (Lab) [address] [place], [address], 06/21/2023 20:39:58 06/21/19 24 06/21/2023 CBC/C OMPLE TE BLD COUNT W/DIF F mean platelet volume 11.2 fL 9.0-12 .4 Not Available [facility] (Lab) [address] [place], [address], 06/21/2023 20:39:58 06/21/19 24 06/21/2023 CBC/C OMPLE TE BLD COUNT W/DIF F neutrophils 66.0 % 39.0-7 2.0 Not Available [facility] (Lab) [address] [place], [address], 06/21/2023 20:39:58 06/21/19 24 06/21/2023 CBC/C OMPLE TE BLD COUNT W/DIF F lymphocytes 25.3 % 16.0-4 7.0 Not Available [facility] (Lab) [address] [place], [address], 06/21/2023 20:39:58 06/21/19 24 06/21/2023 CBC/C OMPLE TE BLD COUNT W/DIF F monocytes 5.9 % 5.0-12 .0 Not Available [facility] (Lab) [address] [place], [address], 06/21/2023 20:39:58 06/21/19 24 06/21/2023 CBC/C OMPLE TE BLD COUNT W/DIF F eosinophils 1.5 % 1.0-7. 0 Not Available [facility] (Lab) [address] [place], [address], 06/21/2023 20:39:58 06/21/19 24 06/21/2023 CBC/C OMPLE TE BLD COUNT W/DIF F basophils 0.8 % 0.0-2. 0 Not Available [facility] (Lab) [address] [place], [address], 06/21/2023 20:39:58 06/21/19 24 06/21/2023 CBC/C OMPLE TE BLD COUNT W/DIF F immature granulocytes 0.5 % 0.00-0 .50 Not Available [facility] (Lab) [address] [place], [address], 06/21/2023 20:39:58 06/21/19 24 06/21/2023 CBC/C OMPLE TE BLD COUNT W/DIF F neutrophils, absolute count 7.29 x10'3 /uL 1.5-8. 0 Not Available [facility] (Lab) [address] [place], [address], 06/21/2023 20:39:58 06/21/19 24 06/21/2023 CBC/C OMPLE TE BLD COUNT W/DIF F lymphocytes, absolute count 2.79 x10'3 /uL 1.07-3 .43 Not Available [facility] (Lab) [address] [place], [address], 06/21/2023 20:39:58 06/21/19 24 06/21/2023 CBC/C OMPLE TE BLD COUNT W/DIF F monocytes, absolute count 0.65 x10'3 /uL 0.29-0 .99 Not Available [facility] (Lab) [address] [place], [address], 06/21/2023 20:39:58 06/21/19 24 06/21/2023 CBC/C OMPLE TE BLD COUNT W/DIF F eosinophils, absolute count 0.17 x10'3 /uL 0.02-0 .53 Not Available [facility] (Lab) [address] [place], [address], 06/21/2023 20:39:58 06/21/19 24 06/21/2023 CBC/C OMPLE TE BLD COUNT W/DIF F basophils, absolute count 0.09 x10'3 /uL 0.01-0 .08 high Not Available [facility] (Lab) [address] [place], [address], 06/21/2023 20:39:58 06/21/19 24 06/21/2023 CBC/C OMPLE TE BLD COUNT W/DIF F immature granulocytes ,absolute 0.05 x10'3 /uL 0.00-0 .05 Not Available [facility] (Lab) [address] [place], [address], 06/21/2023 20:39:58 06/21/19 24 06/21/2023 CBC/C OMPLE TE BLD COUNT W/DIF F nucleated red blood cells 0.0 % -0 Not Available [facility] (Lab) [address] [place], [address], 06/21/2023 20:39:58 06/21/19 24 06/21/2023 CBC/C OMPLE TE BLD COUNT W/DIF F NRBC# 0.00 x10'3 /uL Not Available [facility] (Lab) [address] [place], [address], 06/21/2023 20:39:58 06/21/19 24 06/21/2023 MAGNE SIUM magnesium 2.2 mg/dL 1.6-2. 3 Not Available [facility] (Lab) [address] [place], [address], 06/21/2023 20:41:41 06/21/19 24 06/21/2023 PARAT HY.HO RM(PT H)INT ACT-W /O CA intact parathyroid hormone 33.9 pg/mL 24.0-7 8.0 Pleas e note new refer ence range effec tive 06/18 . Not Available [facility] (Lab) [address] [place], [address], 06/21/2023 21:32:46 06/21/19 24 06/21/2023 VITAM IN B12 (SARI AVERY ) vb12 366 pg/mL 239-93 1 Not Available [facility] (Lab) [address] [place], [address], 06/21/2023 23:52:44 06/21/19 24 06/21/2023 FOLAT E, SERUM /PLAS MA folate >20.0 NG/mL 2.76-2 0.0 Not Available [facility] (Lab) [address] [place], [address], 06/21/2023 23:52:46 06/21/19 24 06/21/2023 VITAM IN D 25-HY DROXY vd25oh 42.0 NG/mL 30-100 Vitam in D Statu s: Defic ient: <20 ng/mL Insuf ficie nt: 20-29 ng/mL Suffi cient : 30-10 0 ng/mL Not Available [facility] (Lab) [address] [place], [address], 06/21/2023 21:36:12 06/21/19 24 06/21/2023 TSH thyroid-stim ulating hormone 1.810 uIU/m L 0.465- 4.680 Not Available [facility] (Lab) [address] [place], [address], 06/21/2023 22:21:45 06/21/19 24 06/23/2023 CALCI UM, IONIZ ED/LC calcium, ionized, serum TNP mg/dL Test not perfo rmed. Speci men is hemol yzed. Unabl e to obtai n valid reed ts. Conta ct: Fabio Saez 2.1.2 4 Perfo rmed at: [address], [place] [address] Lab Direc tor: Colt morel PhD, Phone : [phone] Not Available [facility] (Lab) [address] [place], [address], 06/23/2023 13:09:57 09/20/19 24 09/20/2023 CBC/C OMPLE TE BLD COUNT W/DIF F white blood cells 14.5 x10'3 /uL 4.2-10 .8 high Not Available [facility] (Lab) [address] [place], [address], 09/20/2023 20:33:31 09/20/19 24 09/20/2023 CBC/C OMPLE TE BLD COUNT W/DIF F red blood cells 5.21 x10'6 /uL 3.80-5 .20 high Not Available [facility] (Lab) [address] [place], [address], 09/20/2023 20:33:31 09/20/19 24 09/20/2023 CBC/C OMPLE TE BLD COUNT W/DIF F hemoglobin 17.3 g/dL 12.0-1 5.6 high Not Available [facility] (Lab) [address] [place], [address], 09/20/2023 20:33:31 09/20/19 24 09/20/2023 CBC/C OMPLE TE BLD COUNT W/DIF F hematocrit 48.3 % 35.7-4 5.7 high Not Available [facility] (Lab) [address] [place], [address], 09/20/2023 20:33:31 09/20/19 24 09/20/2023 CBC/C OMPLE TE BLD COUNT W/DIF F mean red cell volume 92.7 fL 82.0-9 9.0 Not Available [facility] (Lab) [address] [place], [address], 09/20/2023 20:33:31 09/20/19 24 09/20/2023 CBC/C OMPLE TE BLD COUNT W/DIF F mean red cell hemoglobin 33.2 pg 27.0-3 3.0 high Not Available [facility] (Lab) [address] [place], [address], 09/20/2023 20:33:31 09/20/19 24 09/20/2023 CBC/C OMPLE TE BLD COUNT W/DIF F mean RBC HGB concentratio n 35.8 g/dL 31.0-3 6.0 Not Available [facility] (Lab) [address] [place], [address], 09/20/2023 20:33:31 09/20/19 24 09/20/2023 CBC/C OMPLE TE BLD COUNT W/DIF F red cell distribution width 12.1 % 11.8-1 5.5 Not Available [facility] (Lab) [address] [place], [address], 09/20/2023 20:33:31 09/20/19 24 09/20/2023 CBC/C OMPLE TE BLD COUNT W/DIF F platelets 256 x10'3 /uL 150-40 0 Not Available [facility] (Lab) [address] [place], [address], 09/20/2023 20:33:31 09/20/19 24 09/20/2023 CBC/C OMPLE TE BLD COUNT W/DIF F mean platelet volume 11.8 fL 9.0-12 .4 Not Available [facility] (Lab) [address] [place], [address], 09/20/2023 20:33:31 09/20/19 24 09/20/2023 CBC/C OMPLE TE BLD COUNT W/DIF F neutrophils 72.8 % 39.0-7 2.0 high Not Available [facility] (Lab) [address] [place], [address], 09/20/2023 20:33:31 09/20/19 24 09/20/2023 CBC/C OMPLE TE BLD COUNT W/DIF F lymphocytes 21.1 % 16.0-4 7.0 Not Available [facility] (Lab) [address] [place], [address], 09/20/2023 20:33:31 09/20/19 24 09/20/2023 CBC/C OMPLE TE BLD COUNT W/DIF F monocytes 4.8 % 5.0-12 .0 low Not Available [facility] (Lab) [address] [place], [address], 09/20/2023 20:33:31 09/20/19 24 09/20/2023 CBC/C OMPLE TE BLD COUNT W/DIF F eosinophils 0.7 % 1.0-7. 0 low Not Available [facility] (Lab) [address] [place], [address], 09/20/2023 20:33:31 09/20/19 24 09/20/2023 CBC/C OMPLE TE BLD COUNT W/DIF F basophils 0.3 % 0.0-2. 0 Not Available [facility] (Lab) [address] [place], [address], 09/20/2023 20:33:31 09/20/19 24 09/20/2023 CBC/C OMPLE TE BLD COUNT W/DIF F immature granulocytes 0.3 % 0.00-0 .50 Not Available [facility] (Lab) [address] [place], [address], 09/20/2023 20:33:31 09/20/19 24 09/20/2023 CBC/C OMPLE TE BLD COUNT W/DIF F neutrophils, absolute count 10.55 x10'3 /uL 1.5-8. 0 high Not Available [facility] (Lab) [address] [place], [address], 09/20/2023 20:33:31 09/20/19 24 09/20/2023 CBC/C OMPLE TE BLD COUNT W/DIF F lymphocytes, absolute count 3.07 x10'3 /uL 1.07-3 .43 Not Available [facility] (Lab) [address] [place], [address], 09/20/2023 20:33:31 09/20/19 24 09/20/2023 CBC/C OMPLE TE BLD COUNT W/DIF F monocytes, absolute count 0.70 x10'3 /uL 0.29-0 .99 Not Available [facility] (Lab) [address] [place], [address], 09/20/2023 20:33:31 09/20/19 24 09/20/2023 CBC/C OMPLE TE BLD COUNT W/DIF F eosinophils, absolute count 0.10 x10'3 /uL 0.02-0 .53 Not Available [facility] (Lab) [address] [place], [address], 09/20/2023 20:33:31 09/20/19 24 09/20/2023 CBC/C OMPLE TE BLD COUNT W/DIF F basophils, absolute count 0.05 x10'3 /uL 0.01-0 .08 Not Available [facility] (Lab) [address] [place], [address], 09/20/2023 20:33:31 09/20/19 24 09/20/2023 CBC/C OMPLE TE BLD COUNT W/DIF F immature granulocytes ,absolute 0.05 x10'3 /uL 0.00-0 .05 Not Available [facility] (Lab) [address] [place], [address], 09/20/2023 20:33:31 09/20/19 24 09/20/2023 CBC/C OMPLE TE BLD COUNT W/DIF F nucleated red blood cells 0.0 % -0 Not Available [facility] (Lab) [address] [place], [address], 09/20/2023 20:33:31 09/20/19 24 09/20/2023 CBC/C OMPLE TE BLD COUNT W/DIF F NRBC# 0.00 x10'3 /uL Not Available [facility] (Lab) [address] [place], [address], 09/20/2023 20:33:31 09/20/19 24 09/22/2023 CALCI UM, IONIZ ED/LC calcium, ionized, serum 5.0 mg/dL 4.5-5. 6 Perfo rmed at: [facility] [address] [facility], [place] [address] Lab Direc tor: Colt morel PhD, Phone : [phone] Not Available [facility] (Lab) [address] [place], [address], 09/22/2023 13:10:47 11/04/19 24 11/04/2023 CBC/C OMPLE TE BLD COUNT W/DIF F white blood cells 12.9 x10'3 /uL 4.2-10 .8 high Not Available [facility] (Lab) [address] [place], [address], 11/04/2023 20:37:43 11/04/19 24 11/04/2023 CBC/C OMPLE TE BLD COUNT W/DIF F red blood cells 5.08 x10'6 /uL 3.80-5 .20 Not Available [facility] (Lab) [address] [place], [address], 11/04/2023 20:37:43 11/04/19 24 11/04/2023 CBC/C OMPLE TE BLD COUNT W/DIF F hemoglobin 16.5 g/dL 12.0-1 5.6 high Not Available [facility] (Lab) [address] [place], [address], 11/04/2023 20:37:43 11/04/19 24 11/04/2023 CBC/C OMPLE TE BLD COUNT W/DIF F hematocrit 46.3 % 35.7-4 5.7 high Not Available [facility] (Lab) [address] [place], [address], 11/04/2023 20:37:43 11/04/19 24 11/04/2023 CBC/C OMPLE TE BLD COUNT W/DIF F mean red cell volume 91.1 fL 82.0-9 9.0 Not Available [facility] (Lab) [address] [place], [address], 11/04/2023 20:37:43 11/04/19 24 11/04/2023 CBC/C OMPLE TE BLD COUNT W/DIF F mean red cell hemoglobin 32.5 pg 27.0-3 3.0 Not Available [facility] (Lab) [address] [facility] [place], [address], 11/04/2023 20:37:43 11/04/19 24 11/04/2023 CBC/C OMPLE TE BLD COUNT W/DIF F mean RBC HGB concentratio n 35.6 g/dL 31.0-3 6.0 Not Available [facility] (Lab) [address] [place], [address], 11/04/2023 20:37:43 11/04/19 24 11/04/2023 CBC/C OMPLE TE BLD COUNT W/DIF F red cell distribution width 11.7 % 11.8-1 5.5 low Not Available [facility] (Lab) [address] [place], [address], 11/04/2023 20:37:43 11/04/19 24 11/04/2023 CBC/C OMPLE TE BLD COUNT W/DIF F platelets 272 x10'3 /uL 150-40 0 Not Available [facility] (Lab) [address] [place], [address], 11/04/2023 20:37:43 11/04/19 24 11/04/2023 CBC/C OMPLE TE BLD COUNT W/DIF F mean platelet volume 11.0 fL 9.0-12 .4 Not Available [facility] (Lab) [address] [place], [address], 11/04/2023 20:37:43 11/04/19 24 11/04/2023 CBC/C OMPLE TE BLD COUNT W/DIF F neutrophils 67.8 % 39.0-7 2.0 Not Available [facility] (Lab) [address] [place], [address], 11/04/2023 20:37:43 11/04/19 24 11/04/2023 CBC/C OMPLE TE BLD COUNT W/DIF F lymphocytes 23.2 % 16.0-4 7.0 Not Available [facility] (Lab) [address] [place], [address], 11/04/2023 20:37:43 11/04/19 24 11/04/2023 CBC/C OMPLE TE BLD COUNT W/DIF F monocytes 6.6 % 5.0-12 .0 Not Available [facility] (Lab) [address] [place], [address], 11/04/2023 20:37:43 11/04/19 24 11/04/2023 CBC/C OMPLE TE BLD COUNT W/DIF F eosinophils 1.3 % 1.0-7. 0 Not Available [facility] (Lab) [address] [place], [address], 11/04/2023 20:37:43 11/04/19 24 11/04/2023 CBC/C OMPLE TE BLD COUNT W/DIF F basophils 0.7 % 0.0-2. 0 Not Available [facility] (Lab) [address] [place], [address], 11/04/2023 20:37:43 11/04/19 24 11/04/2023 CBC/C OMPLE TE BLD COUNT W/DIF F immature granulocytes 0.4 % 0.00-0 .50 Not Available [facility] (Lab) [address] [place], [address], 11/04/2023 20:37:43 11/04/19 24 11/04/2023 CBC/C OMPLE TE BLD COUNT W/DIF F neutrophils, absolute count 8.76 x10'3 /uL 1.5-8. 0 high Not Available [facility] (Lab) [address] [place], [address], 11/04/2023 20:37:43 11/04/19 24 11/04/2023 CBC/C OMPLE TE BLD COUNT W/DIF F lymphocytes, absolute count 3.00 x10'3 /uL 1.07-3 .43 Not Available [facility] (Lab) [address] [place], [address], 11/04/2023 20:37:43 11/04/19 24 11/04/2023 CBC/C OMPLE TE BLD COUNT W/DIF F monocytes, absolute count 0.85 x10'3 /uL 0.29-0 .99 Not Available [facility] (Lab) [address] [place], [address], 11/04/2023 20:37:43 11/04/19 24 11/04/2023 CBC/C OMPLE TE BLD COUNT W/DIF F eosinophils, absolute count 0.17 x10'3 /uL 0.02-0 .53 Not Available [facility] (Lab) [address] [place], [address], 11/04/2023 20:37:43 11/04/19 24 11/04/2023 CBC/C OMPLE TE BLD COUNT W/DIF F basophils, absolute count 0.09 x10'3 /uL 0.01-0 .08 high Not Available [facility] (Lab) [address] [place], [address], 11/04/2023 20:37:43 11/04/19 24 11/04/2023 CBC/C OMPLE TE BLD COUNT W/DIF F immature granulocytes ,absolute 0.05 x10'3 /uL 0.00-0 .05 Not Available [facility] (Lab) [address] [place], [address], 11/04/2023 20:37:43 11/04/19 24 11/04/2023 CBC/C OMPLE TE BLD COUNT W/DIF F nucleated red blood cells 0.0 % -0 Not Available [facility] (Lab) [address] [place], [address], 11/04/2023 20:37:43 11/04/19 24 11/04/2023 CBC/C OMPLE TE BLD COUNT W/DIF F NRBC# 0.00 x10'3 /uL Not Available [facility] (Lab) [address] [place], [address], 11/04/2023 20:37:43 05/19/20 24 05/18/2024 MAMMO , scree maru, digit al, bilat eral No observ ation record ed. [email or web address] [address], [place], [address], 05/28/2024 17:58:17 Result Notes None recorded. Problems Name Problem SNOMED Code Status Onset Date Resolution Date Notes Provider Name and Address Organization Details Recorded Time Otalgia 22984774 Active Not Available [facility] 3 07:35:36 Backache 568957581 Active Not Available [facility] 3 07:35:36 Abdominal pain 60871722 Active Not Available [facility] 3 07:35:36 Mixed anxiety and depressive disorder 674977198 Active 2020 Not Available [facility] 3 07:35:36 Gastroesophag eal reflux disease 323088952 Active Not Available [facility] 3 07:35:36 Gastroenterit is 96595708 Active Not Available [facility] 3 07:35:37 Low back pain 981749891 Active Not Available [facility] 3 07:35:37 Adnexal tenderness 393145464 Active Not Available [facility] 3 07:35:37 Chest pain 61895356 Active Not Available [facility] 3 07:35:37 Blood in urine 25831091 Active Not Available [facility] 3 07:35:37 Depressive disorder 74736124 Active Not Available [facility] 3 07:35:37 Chronic pain syndrome 514591034 Active Not Available [facility] 3 07:35:37 Vomiting 839083979 Active Not Available [facility] 3 07:35:37 Chronic headache disorder 853908622 Active 2020 Not Available [facility] 3 07:35:37 Viral syndrome 383741866 Active Not Available [facility] 3 07:35:38 Anxiety 98870176 Active Not Available [facility] 3 07:35:38 Pain of hip region 15604251 Active Not Available [facility] 3 07:35:38 Chronic fatigue syndrome 56962256 Active Not Available [facility] 3 07:35:38 Upper respiratory infection 99077752 Active Not Available [facility] 3 07:35:38 Rheumatoid arthritis 96953730 Active 2020 Not Available [facility] 3 07:35:38 Neck pain 39704338 Active Not Available [facility] 3 07:35:38 COVID-19 013490003 Active 2020 Not Available [facility] 3 07:35:39 Fatigue 97471215 Active Not Available [facility] 3 07:35:39 Increased frequency of urination 248413051 Active 2022 LUCIAN Kendall [address], [place], [address] , [facility] 3 11:13:14 Tremor 16034680 Active 2022 LUCIAN Kendall [address], [place], [address] , [facility] 3 11:18:58 Urinary incontinence 613090513 Active 2022 LUCIAN Kendall [address], [place], [address] , [facility] 3 11:21:52 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 Active 2022 LUCIAN Kendall [address], [place], [address] , [facility] 3 18:56:56 Psychologic conversion disorder 16678613 Active 2022 LUCIAN Kendall [address], [place], [address] , [facility] 3 18:58:36 Migraine 44250266 Active 2022 LUCIAN Kendall [address], [place], [address] , [facility] 3 11:17:28 Recurrent conversion disorder 38309143 Active 2022 Sharita De La Paz MD [address], [place], [address] , [facility] 3 11:29:45 Cobalamin deficiency [id number] Active 2022 Sharita De La Paz MD [address], [address], [place], [address] , [facility] 3 11:30:32 Vitamin D deficiency [id number] Active 2022 Sharita De La Paz MD [address], [address], [place], [address] , [facility] 3 11:31:25 Hypercalcemia 40327918 Active 2022 Sharita De La Paz MD [address], [place], [address] , [facility] 3 07:57:15 Neuropathy 911610914 Active 2023 Sharita De La Paz MD [address], [place], [address] , [facility] 4 11:29:36 Leukocytosis 317230617 Active 2023 Sharita De La Paz MD [address] [address], [place], [address] , [facility] [employer] [facility] 4 11:20:04 Insomnia 995038450 Active 2023 MANE Corral [address], [address] [address], [place], [address] , [facility] [employer] [facility] 4 11:25:06 Disorder of autonomic nervous system 93623249 Active 2024 MANE Georges [address], [address] [address], [place], [address] , [facility] [employer] [facility] 5 15:11:58 Acute right otitis media [id number] Active 2024 MANE Georges [address], [address], [address] , [facility] [employer] [facility] 5 15:14:42 Problem Notes None recorded. 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 Procedure [...] Not Available Not Available Not Available Afluria 8666-2178( PF) 45 mcg (15 mcg x 3)/0.5 [...] Available Not Available Not Available Flucelvax Quad 4465-2777 (PF) 60 mcg (15 mcg x 4)/0.5 [...] in Arterial blood by Pulse oximetry Systolic And Diastolic Provider Name and Address Organization Details Last Updated DateTime 4 167.64 cm 26.8 kg/m2 50944.3 3 g 97.4 [degF] 83 /min 97 % 97 % 138/84 mm[Hg] Reina Carrillo RN [facility] [employer] [facility] 4 11:03:15 Date Recorded Body height Body mass index (BMI) Body weight Body temperature Heart rate Oxygen saturation Oxygen saturation in Arterial blood by Pulse oximetry Systolic And Diastolic Provider Name and Address Organization Details Last Updated DateTime 5 167.64 cm 24.7 kg/m2 32032.6 3 g 97.2 [degF] 79 /min 98 % 98 % 118/78 mm[Hg] Reina Carrillo RN [facility] 5 14:52:49 Date Recorded Body height Body mass index (BMI) Body weight Body temperature Oxygen saturation Oxygen saturation in Arterial blood by Pulse oximetry Heart rate Systolic And Diastolic Provider Name and Address Organization Details Last Updated DateTime 4 167.64 cm 25.8 kg/m2 59614.7 8 g 97.9 [degF] 97 % 97 % 68 /min 126/78 mm[Hg] Reina Carrillo RN [facility] [employer] [facility] 4 11:13:58 Date Recorded Body height Body mass index (BMI) Body weight Body temperature Heart rate Oxygen saturation Oxygen saturation in Arterial blood by Pulse oximetry Systolic And Diastolic Provider Name and Address Organization Details Last Updated DateTime 4 167.64 cm 24.7 kg/m2 34091.6 3 g 96.7 [degF] 78 /min 98 % 98 % 118/82 mm[Hg] Senia Gallo RN [facility] 4 11:05:26 Social History Question Answer Notes LastModified by Organizat ion Details LastModified Time Tobacco Smoking Status Former Smoker Not Available [employer] 07/21/2022 07:28:29 Do You Have An Advance Directive? No MIGRATION.[id number] 7465 Information not available 07/21/2022 Do You Wear A Helmet When Biking? Yes MIGRATION.669458 1667 Information not available 07/21/2022 What Is Your Level Of Caffeine Consumption? Moderate MIGRATION.667425 6069 Information not available 07/21/2022 How Much Tobacco Do You Chew? None MIGRATION.325002 7622 Information not available 07/21/2022 In The 14 Days Before Symptom Onset, Have You Had Close Contact With A Laboratory-confirm ed COVID-19 While That Case Was Ill? No MIGRATION.361334 7941 Information not available 07/21/2022 In The 14 Days Before Symptom Onset, Have You Had Close Contact With A Person Who Is Under Investigation For COVID-19 While That Person Was Ill? No MIGRATION.203705 0737 Information not available 07/21/2022 What Type Of Diet Are You Following? REGULAR MIGRATION.596014 5610 Information not available 07/21/2022 Which Illicit Or Recreational Drugs Have You Used? None MIGRATION.436289 0518 Information not available 07/21/2022 What Is The Highest Grade Or Level Of School You Have Completed Or The Highest Degree You Have Received? [id number] MIGRATION.116372 7239 Information not available 07/21/2022 Are There Any Guns Present In Your Home? No MIGRATION.066336 5733 Information not available 07/21/2022 What Was The Date Of Your Most Recent Tobacco Screening? 10/30/2019 MIGRATION.487934 6353 Information not available 07/21/2022 What Is Your Current Pack Years? 30ormorepacky ears MIGRATION.358604 1935 Information not available 07/21/2022 What Is Your Relationship Status? MIGRATION.445648 0562 Information not available 07/21/2022 At What Age Did You Start Smoking Tobacco? 25 MIGRATION.854621 4492 Information not available 07/21/2022 How Much Tobacco Do You Smoke? No MIGRATION.935245 9193 Information not available 07/21/2022 Do You Participate In Social Media? No MIGRATION.150104 8608 Information not available 07/21/2022 Do You Use Sunscreen Routinely? Yes MIGRATION.455646 3216 Information not available 07/21/2022 Has Tobacco Cessation Counseling Been Provided? No MIGRATION.436901 4871 Information not available 07/21/2022 How Many Years Have You Smoked Tobacco? 26 MIGRATION.991181 5767 Information not available 07/21/2022 Have You Recently Traveled Abroad? No MIGRATION.815564 1817 Information not available 07/21/2022 Are You Currently In School? No MIGRATION.459177 9853 Information not available 07/21/2022 Do You Have Any Dietary Restrictions? No MIGRATION.753591 6967 Information not available 07/21/2022 Sex: Unknown Functional Status Question Answer Note LastModified by [employer] Details LastModified Time Do you use any illicit or recreational drugs? No MIGRATION.351706 0417 Information not available 07/21/2022 Do you or have you ever used any other forms of tobacco or nicotine? No MIGRATION.577114 0407 Information not available 07/21/2022 What is your level of alcohol consumption? None MIGRATION.714139 7431 Information not available 07/21/2022 Do you or have you ever used smokeless tobacco? Never used smokeless tobacco MIGRATION.425156 0536 Information not available 07/21/2022 Do you or have you ever used e-cigarettes or vape? Never used electronic cigarettes MIGRATION.832198 2665 Information not available 07/21/2022 What is your exercise level? None MIGRATION.792623 0341 Information not available 07/21/2022 Mental Status Question Answer Note LastModified by Organizat ion Details LastModified Time Do you feel stressed (tense, restless, nervous, or anxious, or unable to sleep at night)? [id number] MIGRATION.[id number] 6 Information not available 07/21/2022 Family History Relationship Description Onset Age of this Age Resolved Age Notes LastModified by Organization Details LastModified Time Mother Essential hypertension frivastorres Not available 03/23/2024 10:55:36 Mother Cholecystect clinton frivastorres Not available 05/2023 10:55:36 Mother Diabetes mellitus MIGRATION.168 [id number] Not available 07/21/2022 07:28:42 Maternal Aunt Diabetes mellitus MIGRATION.219 [id number] Not available 07/21/2022 07:28:42 Maternal Uncle Diabetes mellitus MIGRATION.336 [id number] Not available 07/21/2022 07:28:42 Daughter Essential hypertension frivastorres Not available 03/23/2024 10:55:36 Daughter Cholecystect clinton frivastorres Not available 05/2023 10:55:36 Medical History Condition Response BLINDNESS N RHEUMATIC FEVER N KIDNEY STONES N BLADDER PROBLEMS N MRSA N POLIO N LUNG DISEASE/DISORDER N RADIATION / CHEMOTHERAPY N COPD N BLOOD DISEASES N SURGERY N EAR OR HEARING PROBLEMS N MUMPS N FEMALE PROBLEMS / INFECTIONS N DEPRESSION (INCLUDING POST ) Y BOWEL PROBLEMS N STROKE/TIA N THYROID DISEASE N ULCERS N [...] GLAUCOMA N FOOT PROBLEM N DIVERTICULITIS N SLEEP APNEA N CHICKENPOX N ALLERGIES/HAYFEVER N INFECTIOUS DISEASE N PROSTATE N HEART ARRHYTHMIA N INSOMNIA N HIGH CHOLESTEROL / HYPERLIPIDEMIA N EYE PROBLEMS N HYPERTHYROIDISM N EATING DISORDER N EDEMA N CHRONIC PAIN SYNDROME N CAROTID BLOCKAGE N CONSTIPATION N BACK / NECK PROBLEMS N HAVE YOU BEEN HOSPITALIZED OR SEEN IN [facility] IN THE PAST YEAR ? N [...] DISORDER N ALZHEIMER'S DISEASE N PAIN N DEMENTIA N HERPES N SEIZURES/EPILEPSY N HEADACHES/MIGRAINES N VASCULAR DISEASE N PACEMAKER N DIZZINESS N HEART DISEASE/HEART PROBLEMS N KIDNEY DISEASE N SCARLET FEVER N MULTIPLE SCLEROSIS N DEVELOPMENTAL OR BEHAVIORAL DISORDERS N MENTAL DISORDER/ILLNESS N CANCER: SPECIFY N CARDIAC ARRHYTHMIA N PNEUMONIA N ATRIAL FIBRILLATION N Gall [...] pneumococcal polysaccharide PPV23 2 completed Not Available [facility] 07/21/2022 07:42:50 Influenza, split virus, trivalent, PF 2 completed Not Available [facility] 07/21/2022 07:42:50 SARS-COV-2 (COVID-19) vaccine, UNSPECIFIED 1 completed Not Available [facility] 07/21/2022 07:42:50 Influenza, split virus, quadrivalent, PF 1 completed Not Available [facility] 07/21/2022 07:42:50 Influenza, split virus, quadrivalent, preservative 9 completed Not Available [facility] 07/21/2022 07:42:50 Tdap 7 completed Not Available [facility] 07/21/2022 07:42:50 Influenza, split virus, quadrivalent, preservative 6 completed Not Available [facility] 07/21/2022 07:42:50 Influenza, split virus, quadrivalent, PF 5 completed Not Available [facility] 07/21/2022 07:42:51 Past Encounters Encounter ID Performer Location Encounter Start Date Encounter Closed Date Diagnosis/Indication Diagnosis SNOMED-CT Code Diagnosis ICD10 Code Diagnosis Note [id number] LUCIAN Kendall [facility] [place] [address] [place] [address] 09/05/2020 00:00:00 09/05/2020 09:25:58 [id number] LUCIAN Kendall [facility] Primary [facility] [place] [address] [place] [address] 10/10/2020 00:00:00 10/10/2020 12:05:31 [id number] LUCIAN Kendall [facility] Primary [facility] [place] [address] [place] [address] 11/07/2020 00:00:00 11/07/2020 13:45:50 [id number] Sharita De La Paz MD [facility] Primary [facility] [place] [address] [place] [address] 12/05/2020 00:00:00 12/05/2020 14:04:16 [id number] Sharita De La Paz MD [facility] Primary [facility] [place] [address] [place] [address] 01/02/2021 00:00:00 01/02/2021 21:05:39 [id number] Sharita De La Paz MD [facility] Primary [facility] [place] [address] [place] [address] 02/10/2021 00:00:00 02/10/2021 18:13:13 [id number] Sharita De La Paz MD [facility] Primary [facility] [place] [address] [place] [address] 03/13/2021 00:00:00 03/13/2021 20:34:08 [id number] Sharita De La Paz MD [facility] Primary Care [place] [address] [place] [address] 04/10/2021 00:00:00 04/10/2021 13:52:52 [id number] Sharita De La Paz MD [facility] Primary Care [place] [address] [place] [address] 05/08/2021 00:00:00 05/08/2021 16:40:32 [id number] Sharita De La Paz MD [facility] Primary [facility] [place] [address] [place] [address] 06/05/2021 00:00:00 06/05/2021 17:15:24 [id number] Sharita De La Paz MD [facility] Primary Care [place] [address] [place] [address] 07/14/2021 00:00:00 07/14/2021 14:11:48 [id number] Sharita De La Paz MD [facility] Primary [facility] [place] [address] [place] [address] 08/11/2021 00:00:00 08/11/2021 20:42:18 [id number] LUCIAN Kendall [facility] [place] [address] [place] [address] 09/08/2021 00:00:00 09/09/2021 20:30:57 [id number] CARIDAD Keith [facility] [place] [address] [place] [address] 10/06/2021 00:00:00 10/06/2021 14:05:52 [id number] POLINA KendallP [facility] [place] [address] [place] [address] 11/03/2021 00:00:00 11/03/2021 11:30:20 [id number] LUCIAN Kendall [facility] [place] [address] [place] [address] 12/01/2021 00:00:00 12/01/2021 16:07:55 [id number] LUCIAN Kendall [facility] [place] [address] [place] [address] 01/12/2022 00:00:00 01/12/2022 14:05:08 [id number] LUCIAN Kendall [facility] [place] [address] [place] [address] 02/11/2022 00:00:00 02/11/2022 20:07:26 [id number] Sharita De La Paz MD [facility] [place] [address] [place] [address] 02/25/2022 00:00:00 02/25/2022 11:53:18 [id number] Sharita De La Paz MD [facility] Primary [facility] [place] [address] [place] [address] 04/06/2022 00:00:00 04/06/2022 19:01:25 [id number] Sharita De La Paz MD [facility] [place] [address] [place] [address] 05/18/2022 00:00:00 05/18/2022 17:58:40 [id number] Sharita De La Paz MD [facility] [place] [address] [place] [address] 06/29/2022 00:00:00 06/29/2022 12:08:24 [id number] LUCIAN Kendall [facility] Primary [facility] [place] [address] [place] [address] 08/24/2022 10:52:24 08/24/2022 11:27:35 Increased frequency of urination 974658393 R35.0 R32 R30.0 New problem--U TI-Urine dip in office today/UA sent for C & S. Will start on PO abx. Advised continue increased fluid intake to flush urinary tract. Discussed proper feminine hygiene (wipe front to back, unscented soaps/mois turizers, empty bladder immediatel y after sexual activity). Encouraged use of probiotics . Tremor 97660454 R25.1 08/24/22: ChronicLik jennifer d/t long-covid Again [...] with thc.Differ entials include post viral/Guil francisco Caldwell (most likely), Myasthenia Gravis, Parkinson' s (less [...] visit.MRI unremarkab le (07/21/21) Urinary incontinence 165 723154 R32 ChronicEnc ouraged q 2hr toileting, Kegel exercises. Checking UA and culture for possible UTI. Discussed this may be sequelae of long-covid . Psychologi c conversion disorder 58076226 F44.9 Functional Neurologic DisorderNe w dx per neurology (Dr. Bentley)Philipp lomeli neurology note from Dr. 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), with abnormal movement- evaluated patient and discussed my impression that she is a functional neurologic disorder- directed patient to the website [employer]- address that many patients with a functional neurologic disorder can benefit from seeing a therapist particular ly as symptoms can cause significan t emotional stress and feelings of hopelessne ss- PSYCHOLOGY REFERRAL; Future [id number] LUCIAN Kendall [facility] [address] [place] [address] 12/15/2022 10:55:43 12/15/2022 11:34:08 Tremor 83620112 R25.1 12/15/22: Chronic, secondary to long covid. [...] with thc.Differ entials include post viral/Guil francisco Caldwell (most likely), Myasthenia Gravis, Parkinson' s (less [...] unremarkab le (07/21/21) Psychologi c conversion disorder 91386917 F44.9 Functional Neurologic DisorderPe r neurology (Dr. Bentley) Reviewed neurology note from Dr. 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 [id number] Sharita De La Paz MD [facility] [address] [place] [address] 03/22/2023 10:49:13 03/22/2023 11:38:39 Tremor 88258648 R25.1 Rheumatoid arthritis 698 68834 M06.9 Z79.899 Migraine 94098194 G43.90 9 continue emgality 300 mg sc qmonth Recurrent conversion disorder 59495657 F44.4 dx by neurology with functional neurologic [...] 3 months or sooner if needed Fatigue 95063637 R53.83 check labs Cobalamin deficiency 190 207802 E53.8 Vitamin D deficiency 347 34505 E55.9 [id number] Sharita De La Paz MD [facility] Primary Care [address] [place] [address] 06/21/2023 10:54:18 06/21/2023 11:38:23 Neuropathy 540863883 G62.9 has failed gabapentin check labs Hypercalcemia 99829202 E 83.52 noted on labscheck PTH and ionized calcium Cobalamin deficiency 190 282705 E53.8 Tremor 23586414 R25.1 no changeok to continue lorazepam 1 mg up to 4x per dayf/u in 3 months or sooner if needed Recurrent conversion disorder 83623982 F44.4 dx by neurology with functional neurologic [...] in 3 months or sooner if needed [id number] Sharita De La Paz MD [facility] Primary Care [facility] [address] [place] [address] 09/20/2023 11:07:34 09/20/2023 11:32:03 Tremor 52336344 R25.1 no changeok to continue lorazepam 1 mg up to 4x per dayf/u in 6 months or sooner if needed Hypercalcemia 06108983 E 83.52 noted on labs previously PTH normal but ionized calcium couldn't be donerechec k ionized calcium Leukocytosis 786428926 D 72.668 [id number] MANE Corral [facility] Primary Care [facility] [address] [facility] [facility] [address] [address] [place] [address] 11/04/2023 11:53:09 11/04/2023 12:05:54 [id number] MANE Corral [facility] Primary Care [facility] [address] [facility] [facility] [address] [address] [place] [address] 03/23/2024 10:53:59 03/23/2024 11:44:25 Tremor 85425128 R25.1 no changeok to continue lorazepam 1 mg up to 4x per dayf/u in 3 months or sooner if needed Hypercalcemia 66731572 E 83.52 noted on labs previously PTH normal but ionized calcium couldn't be donereche k ionized calcium Leukocytosis 770820488 D 72.829 has already f/u with hematology next f/u in June 2024 Long-term drug therapy 463604626 Z79.891 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 15308229 E34.9 tremors, slurred/de layed speechpt believes symptoms improve at times Insomnia 994057067 G47.0 0 FMD causing trouble staying asleephas tried melatonin without reliefuses lorazepamt rial trazodone [id number] MANE Georges [facility] Primary Care [facility] [address] [address] [facility] [address] [place] [address] 07/03/2024 14:47:37 07/03/2024 15:21:25 Adult health examination 011144310 Z00.00 Discussed medication compliance and routine follow up.Discuss ed healthy diet and routine exercise.R yuaniewed vaccine records and made recommenda tions as needed.Enc ouraged annual eye and dental exams, as well as twice yearly dental cleanings. Tremor 51432348 R25.1 Acute righ t otitis media 692537860 H66.91 Will treat as listed below, patient will follow up as needed. 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 Does virtual meditation every morning. Health Concerns Section Related Observation LastModified by Organization Detai ls LastModified Time None Recorded Concern Status LastModified by Organization Details LastModified Time None Recorded Advance Directives Directive N: Payers Insurance Date Sequence Insurance Name Policy Number Policy Jordan Covered Member ID Jordan Member ID Guarantor Name 06/30/2024 1 [place] [id number] [place] [id number] Lory Bridges 06/23/2024 2 [place] Lory Bridges [id number] Lory Bridges 03/22/2024 1 [place] [id number] Lory Brdiges [id number] Lory Bridges 11/28/2023 1 [place] [id number] [place] [id number] Lory Bridges Notes Date Note Type Note [...] don't improve with clonazepam. Has appt with [facility] neuro (Dr. Bentley), August 16.2. 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 Was dx with mild obstructive airway disease via PFT (02/19/21). Pt states the cough often makes her throw up. States the vomit is primarily mucous. 04/06/22: 1. Pt presents for telehealth video/phone conference. Verbal consent witnessed by medical transcriber student and Ivette Macedo (provider).2. Pt presents [...] for permanent disability. States she has an deputy prosecuting attorney assisting.3. Pt and report that her [...] video/phone conference. Verbal consent witnessed by medical transcriber name (MA) and Ivette Macedo (provider).2. Pt [...] she hasn't gotten call to schedule with community relations officer provider.4. Pt states she has an upcoming [...] with neuro.2. Pt states she saw her cribber and had updated labs done. States they didn't make a recommendation for her to get back on autoimmune meds. Sharita De La Paz MD [address], [address], [place], [address], [employer] 06/21/2023 11:38:41 09/20/2023 text/html she is taking lorazepam as prescribed, finds it helpful no selling/lending/jamarcus ing, no heavy etoh or illegal drug Sharita De La Paz MD [address], [address], [place], [address], [place] 10/09/2023 15:19:46 03/23/2024 text/html pt is here for f/u Patrick Tono ord, [employer] [address], [place], [address], [place] 03/23/2024 11:41:23 07/03/2024 text/html Patient is a [...] UTDFlu-declinesCovid - UTD declinesTdap- UTD (12/2016)Shingles- declines LUCIAN Georges-Alice [address], [facility] [address], [place], [address], [place] [facility] 07/03/2024 15:21:24 OBGyn Episode No OBEpisode recorded.
== END 2024-11-30 08:30 | disposition home or self-care (01) ==
LOC: ANHIMG 08:30
PROVIDERS: PCP Nurse Practitioner Family; Visit Provider Internal Medicine Hematology & Oncology
DX: R92.8 Other abnormal and inconclusive findings on diagnostic imaging of breast (principal)
CPT/HCPCS: 76642

== ENCOUNTER 2025-05-21 15:51 | Outpatient (CLI) | payer BC, MEDICARE, SELFPAY ==
--- OUTSIDE RECORDS SUMMARY | 2025-05-21 15:54 | XMS_ITS | Clinical Summary ---
Author Organization [email or web address] [facility] lin Address [address] [place] [address] Care Team Providers Care Sand Tester Name Role Phone Pcp, No Primary Care Provider [phone] Social History Tobacco Use Types Packs/Day Years Used Date Smoking Tobacco: Never Assessed Comments Unknown Sex and Gender Information Value Date Recorded Sex Assigned at Not on file Legal Sex Female 4:52 PM EST Gender Identity Not on file Sexual Orientation Not on file Plan of Treatment Not on file Medical Devices Not on file Care Teams Sand Tester Relationship Specialty Start Date End Date PcpMegan PCP - General Family Medicine 04/28/20
--- OUTSIDE RECORDS SUMMARY | 2025-05-21 15:54 | XMS_ITS | Clinical Summary ---
Author Organization [facility] Address [address] [place] [address] Phone Care Team Providers Care Geotechnical Field Technician Name Role Phone Ivette Macedo APRN, CAR SHAGGER Primary Care Provider Jcarlos Bentley MD Unavailable [phone] Allergies No known active allergies Medications ARIPiprazole [...] Years Used Date Smoking Tobacco: Former Cigarettes 26 0 05/23/1993 - 05/23/2019 Smokeless Tobacco: Never [...] Screening 2019 Immunochemical Fecal Occult Blood 2019 Pneumococcal Immunization (50+ years) (2 of 2 - PCV) 2024 09/01/2011 Zoster Immunization (1 of 2) 2024 Influenza Immunization (#1) 01/21/202503/23, 04/26/2019, 02/20/2018, Additional history exists SARS-COV-2 Immunization (3 - 2024- season) 2025 11/07/2020, 10/10/2020 Respiratory Syncytial Virus (RSV) Immunization (Adult) (1 - 1-dose 75+ series) 2049 Pneumococcal Immunization Combined Discontinued 09/01/2011 DTaP/Tdap/Td Immunization Discontinued 12/30/2016 TdaP Immunization Completed 12/30/2016 Human Papillomavirus (HPV) Immunization (No Doses Required) Completed Meningococcal Immunization (ACWY) Aged Out No longer eligible based on patient's age to complete this topic Rotavirus Immunization Aged Out No lo nger eligible based on patient's age to complete this topic Insurance [facility] Care Teams Geotechnical Field Technician Relationship Specialty Start Date End Date Ivetet Macedo, MILK DRIER, CAR SHAGGER [address] [place] [address] PCP - General Certified Nurse Practitioner 05/19/22 Jcarlos Bentley MD [address] [place] [address] Consulting Physician Neurology 08/16/22
--- OUTSIDE RECORDS SUMMARY | 2025-05-21 15:54 | XMS_ITS | Clinical Summary ---
Author Organization [facility] Fanta salazar [facility] Address [address] [place] [address] [place] [address] Care Team Providers Care Trading Specialist Name Role Phone Unavailable Primary Care Provider Unavailabl e Allergies No known active allergies Medications LORazepam (ATIVAN) 0.5 mg tablet Take 0.5 mg by mouth every 4 hours as needed for Other (See Comment). Active Active Problems No known active problems Encounters Date Type Department Care Team Description 05/07/2025 External Device Data [facility] ABSTRACTION Provider, Abstract 03/13/2025 External Device Data [facility] ABSTRACTION Provider, Abstract 03/12/2025 External Device Data [facility] ABSTRACTION Provider, Abstract [...] on file Legal Sex Female 5:46 PM C JAVA DEVELOPER Gender Identity Not on file Sexual Orientation [...] Care Team (Late st Contact Info) Description 05/27/2025 2:45 PM C JAVA DEVELOPER Office Visit [facility] Oncology and Hematology - [place] [address] [facility] [address] [place] [address] Malik Ko MD [address] [facility] [address] [place] [address] Health Maintenance Due Date Last Done Comments HEPATITIS B VACCINES (1 of 3 - 19+ 3-dose series) 1993 Traditional Medicare (ACO) A nnual Wellness Visit 1993 ZOSTER VACCINE (1 of 2) 1993 HPV/Cotest (21-29) 1995 CERVICAL CANCER SCREENING 2004 HPV/Cotest (30-65) 2004 PAP SMEAR 2004 FIT-DNA Q 3 years 2019 FIT/FOBT Q 1 year 2019 Flex Sig/CT Colonography Q 5 years 2019 Lung Cancer Screening 2024 INFLUENZA VACCINE (#1) 2024 , 04/26/2019, 03/04/2016, Additional history exists BREAST CANCER SCREENING 06/05/2025 06/05/19 25, 05/18/2024, 05/18/2024, Additional history exists DTAP/TDAP/TD VACCINES (2 - T d or Tdap) 12/30/2026 12/30/2016 COLORECTAL SCREENING 02/02/2034 02/03/2024 Colorectal Cancer Screening 02/02/2034 Preventative Visit- Commercial Completed 07/03/2024 Procedures Procedure Name Priority Date/Time Associated Diagnosis Comments MAMMO SCREENING BILAT Routine 05/18/2024 8:16 AM C JAVA DEVELOPER from Last 3 Months or Most Recently Relevant to Health Maintenance Results * MAMMO SCREENING BILAT (05/18/2024 8:16 AM C JAVA DEVELOPER) Anatomical Region Laterality Modality Breast Bilateral Mammography Malik Ko MD MAMMO ORDERABLES Final Result from Last 3 Months or Most Recently Relevant to Health Maintenance Insurance MEDICARE PART A AND B [facility] PPO
[2025-05-21 16:21] LABS: Hematocrit 46.0 % (37.0-47.0); Hemoglobin 16.1 g/dL (12.0-15.0); Immature Granulocyte Percent A 0.3 % (0-0.5); Lymphocytes Absolute Auto 3.73 K/mm3 (0.9-3.2); Mean Corpuscular HGB Conc 35.0 g/dl (32-36); Mean Corpuscular Hemoglobin 31.6 pg (26-34); Mean Corpuscular Volume 90.2 fl (80-100); Nucleated Red Blood Cells Absolute Auto 0.000 K/mm3 (0.0-0.012); Nucleated Red Blood Cells Perc 0.0 % (0.0-0.2); Platelet Count Result 259 k/mm3 (150-375); Red Blood Count 5.10 M/mm3 (4.2-5.4); White Blood Count 11.7 K/mm3 (4.5-10.0)
[2025-05-21 16:37] LABS: Anion Gap 8 mmol/L (4-12); Blood Urea Nitrogen 8 mg/dL (7-17); Calcium 10.3 mg/dL (8.4-10.2); Carbon Dioxide 26 mmol/L (22-30); Chloride 108 mmol/L (98-107); Estimated Glomerular Filt Rate > 60; Glucose 108 mg/dL (65-110); Potassium 3.5 mmol/L (3.4-5.0); Sodium 142 mmol/L (137-145)
== END 2025-05-21 15:52 | disposition home or self-care (01) ==
LOC: ANHLAB 15:52
PROVIDERS: PCP Nurse Practitioner Family; Visit Provider Internal Medicine Hematology & Oncology
DX: D75.1 Secondary polycythemia (principal)
CPT/HCPCS: 36415; 80048; 85025

== ENCOUNTER 2025-05-21 16:12 | Outpatient (CLI) | payer BC, MEDICARE, SELFPAY ==
--- NOTE | ~2025-05-21 | MM_ITS ---
EXAMINATION: MM screening delfino BI w hilario HISTORY: Screening TECHNIQUE: Craniocaudal and mediolateral oblique 3-D tomosynthesis images were obtained and synthetic 2-D images were generated. CAD analysis was submitted and interpreted. COMPARISON: April, and May, BREAST PARENCHYMAL COMPOSITION: The breast tissue is heterogeneously dense, which may obscure small masses. FINDINGS: There are findings consistent with the known breast cysts. No suspicious masses are seen. There are no suspicious calcifications. There is some possible architectural distortion questioned just superior to the nipple line on the right MLO view. There are no skin or nipple abnormalities identified. There is no adenopathy seen on the images submitted. IMPRESSION: Possible architectural distortion on the right for which additional imaging is recommended. BI-RADS 0 - Incomplete - needs additional imaging evaluation Reviewed, dictated and finalized at location C. MBLIES AND INSTALLATIONS INSPECTOR
== END 2025-05-21 16:13 | disposition home or self-care (01) ==
PROVIDERS: PCP Nurse Practitioner Family; Visit Provider Internal Medicine Hematology & Oncology
DX: Z12.31 Encounter for screening mammogram for malignant neoplasm of breast (principal); R92.8 Other abnormal and inconclusive findings on diagnostic imaging of breast
CPT/HCPCS: 77063; 77067